=== PATIENT | female | born 1935 | race Asian ===

== ENCOUNTER 2020-12-25 17:41 | Emergency (ER) | payer MEDICARE, OTHER ==
--- NOTE | 2020-12-25 18:49 | XRAY Report ---
PROCEDURE: Ankle 3 View BILAT INDICATIONS: ankle swelling, pain TECHNIQUE: 3 views of each ankle were acquired. COMPARISON: None. FINDINGS: Bones: No definite fractures or dislocations. Ankle mortise is normally aligned. No suspicious bon y lesions. Visualized osseous structures appear osteopenic. Soft tissues: There is periarticular soft tissue swelling bilaterally. There is a suspected small ri ght tibiotalar joint effusion. Achilles tendon appears intact. IMPRESSION: 1. No definite fracture or dislocation. 2. Osteopenia. 3. Bilateral particular soft tissue swelling and suspected small right tibiotalar joint effusion. Reviewed by: Bennett Sheridan MD on 12/25/2020 6:48 PM PDT Approved by: Bennett Sheridan MD on 12/25/2020 6:48 PM PDT Station ID: [id number]
--- NOTE | 2020-12-25 19:23 | ED Physician Documentation ---
History of Present Illness - Stated complaint Stated Complaint: ANKLE PX/SWELLING - Chief complaint Chief Complaint: Ext Problem - Additonal information Additional information: 85-year-old female presents the emergency department for evaluation of pain around the radiation sites on her lower legs. She underwent radiation therapy on December 20 for skin cancer of her lower legs. She was advised to do daily salt water soaks and use a Q-tip to remove the eschar from the wound. However she feels that this is too painful to tolerate. She has some expected redness around the wounds but no fevers. No induration. She is scheduled to follow-up with her debeaker and has also been referred to [place] wound therapy. 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 Derm: Skin cancer surgery - Present Medications Home Medications: Ambulatory Orders Medication Instructions Recorded Confirmed Albuterol Sulf [Ventolin Hfa 08/15/18 Inhaler] Cholecalciferol (Vitamin D3) 08/15/18 [Vitamin D3] Donepezil [Aricept] 08/15/18 Ferrous Gluconate [Iron] 08/15/18 Fluticasone/Salmeterol [Advair 08/15/18 250-50 Diskus] Furosemide 08/15/18 Glipizide 08/15/18 Loratadine 08/15/18 Omeprazole 08/15/18 PARoxetine [Paxil] 08/15/18 Potassium Chloride 08/15/18 Simvastatin 08/15/18 Sulfamethoxazole/Trimethoprim 1 each PO BID #14 tablet 08/15/18 [Sulfamethoxazole-Tmp Ds Tablet] Tiotropium [place] [Spiriva] 08/15/18 08/15/18 amLODIPine [Norvasc] 08/15/18 metFORMIN [Glucophage] 08/15/18 HYDROcod/ACETAM 5/325 [[place] 5/325] 1 - 2 tablet PO DAILY PRN #10 12/25/20 tablet Ibuprofen [Motrin] 600 mg PO Q6H PRN #30 tab 12/25/20 - Allergies Allergies/Adverse Reactions: Allergies Allergy/AdvReac Type Severity Reaction Status Date / Time No Known Drug Allergies Allergy Verified 12/25/20 17:48 - Social History Does the pt smoke?: No Smoking Status: Never smoker Does the pt drink ETOH?: Yes Does the pt have substance abuse?: No - Immunizations Immunizations are current?: Yes - POLST Patient has POLST: No PD ED PE EXPANDED - General General: Alert, No acute distress - Extremities Extremities: Other (1 cm circumferential ulcerations bilaterally posterior lower legs. Mild amount of surrounding erythema without induration. The ulcerations do have a very shallow yellow eschar.) Results - Vitals Vitals: Vital Signs - 24 hr 12/25/20 12/25/20 17:48 18:07 Temperature 36.6 C Heart Rate 88 63 Respiratory 18 16 Rate Blood Pressure 190/70 H 152/71 H O2 Saturation 97 97 Oxygen O2 Source Room air PD MEDICAL DECISION MAKING - ED course Complexity details: reviewed results, re-evaluated patient, d/w patient ED course: 85-year-old female presents emergency department with pain on bilateral lower extremities at the site where she recently had radiation therapy for skin cancer. There is a mild amount of erythema there suggestive of radiation dermatitis however this is not suggestive of an acute cellulitis. In order to help with her dressing changes I have prescribed ibuprofen to be taken 1 hour before the dressing change. If she is still unable to tolerate her dressing changes then I have prescribed hydrocodone to be taken once daily 1 hour before the dressing changes. Patient will continue to follow-up with dermatology and [facility] as already scheduled. Emergent return precautions were discussed. Departure - Departure Disposition: 01 Home, Self Care Clinical Impression: Radiation dermatitis Condition: Stable Record reviewed to determine appropriate education?: Yes Prescriptions: Ibuprofen [Motrin] 600 mg PO Q6H PRN #30 tab PRN Reason: Pain HYDROcod/ACETAM 5/325 [[place] 5/325] 1 - 2 tablet PO DAILY PRN #10 tablet PRN Reason: Pain Comments: Having radiationDonna the pain that you have on your lower legs. The mild redness that you have is called radiation dermatitis. This is expected following radiation therapy. You do not have a bacterial skin infection. To help with your dressing changes and removing the yellow eschar I do recommend that you take the Motrin 1 hour before you do the dressing change. If you are still unable to tolerate the dressing changes then please take the hydrocodone 1 hour before the dressing change. Please be careful using the hydrocodone. It can cause constipation as well as make you prone to falls. It is important that you continue to use a Q-tip to remove the eschar from your wound. If you have increased redness, fevers worsening pain despite this treatment regimen please return to the ER for a second look. Continue to follow-up with your debeaker and radiation therapist as prescribed.
[2020-12-25 19:30] VITALS: BP 168/68
== END 2020-12-25 19:29 | disposition home or self-care (01) ==
LOC: ED 17:41
DX: L59.8 Other specified disorders of the skin and subcutaneous tissue related to radiation (principal); I10 Essential (primary) hypertension; E11.9 Type 2 diabetes mellitus without complications; Z79.84 Long term (current) use of oral hypoglycemic drugs
CPT/HCPCS: 99283

== ENCOUNTER 2022-06-21 03:05 | Outpatient (CLI) | payer MEDICARE | END 2022-06-21 03:06 | disposition critical access hospital (66) | LOC: EMS 03:05 | DX: S79.912A Unspecified injury of left hip, initial encounter (principal); S69.92XA Unspecified injury of left wrist, hand and finger(s), initial encounter; S01.112A Laceration without foreign body of left eyelid and periocular area, initial encounter; W01.0XXA Fall on same level from slipping, tripping and stumbling without subsequent striking against object, initial encounter; Y92.002 Bathroom of unspecified non-institutional (private) residence as the place of occurrence of the external cause | CPT/HCPCS: A0425; A0427 ==

== ENCOUNTER 2022-06-21 04:30 | Inpatient (IN) | payer MEDICARE ==
[2022-06-21] MEDS ORDERED: MORPHINE 2 MG/ML CARPUJECT IVP STA (04:44)
[2022-06-21] MEDS ORDERED: TETANUS/DIPHTHERIA/PERTUSSIS 0.5 ML SYRINGE IM ONE (04:46)
--- NOTE | 2022-06-21 04:48 | ED Physician Documentation ---
History of Present Illness - Stated complaint Stated Complaint: GLF - Chief complaint Chief Complaint: Ext Problem - History obtained from History obtained from: Patient - Additonal information Additional information: 86yF p/w L forehead laceration, L wrist deformity, and L hip deformity s/p fall from standing up from the bathroom this past evening. patient states she lost her balance and fell to the floor, possibly hitting her head on the door frame on the way down. endorses significant sudden onset constant pain to L hip and forearm/wrist. denies other injury. Review of Systems Ten Systems: 10 systems reviewed and negative Musculoskeletal: reports: Extremity pain, Joint pain, Extremity swelling. denies: Neck pain, Back pain Neurologic: reports: Head injury. denies: Syncope, LOC PD PAST MEDICAL HISTORY - Past Medical History Past Medical History: Yes Cardiovascular: Hypertension, High cholesterol Respiratory: Asthma Neuro: None Endocrine/Autoimmune: Type 2 diabetes GI: None TECHNICAL SOLUTIONS CONSULTANT: None : None HEENT: None Psych: None Musculoskeletal: None Derm: None - Past Surgical History Past Surgical History: Yes /TECHNICAL SOLUTIONS CONSULTANT: Hysterectomy Derm: Skin cancer surgery - Present Medications Home Medications: Ambulatory Orders Medication Instructions Recorded Confirmed Albuterol Sulf [Ventolin Hfa 08/15/18 Inhaler] Cholecalciferol (Vitamin D3) 08/15/18 [Vitamin D3] Donepezil [Aricept] 08/15/18 Ferrous Gluconate [Iron] 08/15/18 Fluticasone/Salmeterol [Advair 08/15/18 250-50 Diskus] Furosemide 08/15/18 Loratadine 08/15/18 Omeprazole 08/15/18 PARoxetine [Paxil] 08/15/18 Potassium Chloride 08/15/18 Simvastatin 08/15/18 Sulfamethoxazole/Trimethoprim 1 each PO BID #14 tablet 08/15/18 [Sulfamethoxazole-Tmp Ds Tablet] Tiotropium [place] [Spiriva 08/15/18 08/15/18 [place]haler] amLODIPine [Norvasc] 08/15/18 glipiZIDE [Glipizide] 08/15/18 metFORMIN [Glucophage] 08/15/18 HYDROcod/ACETAM 5/325 [[place] 5/325] 1 - 2 tablet PO DAILY PRN #10 12/25/20 tablet Ibuprofen [Motrin] 600 mg PO Q6H PRN #30 tab 12/25/20 - Allergies Allergies/Adverse Reactions: Allergies Allergy/AdvReac Type Severity Reaction Status Date / Time No Known Drug Allergies Allergy Verified 06/21/22 04:43 - Social History Does the pt smoke?: No Smoking Status: Never smoker Does the pt drink ETOH?: Yes Does the pt have substance abuse?: No - Immunizations Immunizations are current?: Yes - POLST Patient has POLST: No PD ED PE NORMAL - Vitals Vital signs reviewed: Yes - General General: No acute distress, Well developed/nourished, Other (AOX2 (mistakenly said year was 2019)) - HEENT HEENT: Atraumatic (atraumatic with exception of L forehead avulsion), PERRL, EOMI - Neck Neck: No bony TTP - Cardiac Cardiac: RRR - Respiratory Respiratory: No respiratory distress, Clear bilaterally - Abdomen Abdomen: Non tender, Non distended - Back Back: No spinal TTP - Derm Derm: Normal color, Warm and dry - Extremities Extremities: Other (L leg shortened, internally rotated. 2+ pulses all extremities. normal movement and cap refill. L distal forearm deformity) - Neuro Neuro: banquet prep cook 2-12 intact, No motor deficit, No sensory deficit, Normal speech Eye Opening: Spontaneous Motor: Obeys Commands Verbal: Oriented GCS Score: 15 - Psych Psych: Normal mood, Normal affect Results - Vitals Vitals: Vital Signs - 24 hr 06/21/22 06/21/22 06/21/22 04:40 04:44 05:01 Temperature 36.7 C Heart Rate 73 72 72 Respiratory 18 18 20 Rate Blood Pressure 167/76 H O2 Saturation 92 97 If not protocol 2 : Oxygen Flow, liters/minute 06/21/22 06/21/22 06/21/22 05:16 05:52 06:59 Temperature Heart Rate 72 73 83 Respiratory 18 20 Rate Blood Pressure 170/79 H 179/81 H O2 Saturation 97 96 96 If not protocol 2 2 2 : Oxygen Flow, liters/minute Oxygen O2 Source Nasal cannula Oxygen Flow Rate 2 - Labs Labs: Laboratory Tests 06/21/22 06/21/22 06/21/22 05:40 05:40 06:50 WBC 8.7 RBC 4.18 L Hgb 13.3 Hct 41.3 MCV 98.8 MCH 31.8 H MCHC 32.2 RDW 13.0 Plt Count 175 MPV 9.8 Neut # (Auto) 7.1 H Lymph # (Auto) 1.0 L [place] # (Auto) 0.5 Eos # (Auto) 0.1 Baso # (Auto) 0.0 Absolute Nucleated RBC 0.00 Nucleated RBC % 0.0 Sodium 140 Potassium 4.1 Chloride 104 Carbon Dioxide 28 Anion Gap 8.0 BUN 9 Creatinine 0.6 Estimated GFR (MDRD) 94 Glucose 409 H Calcium 9.3 Total Bilirubin 1.2 H AST 19 ALT 16 Alkaline Phosphatase 106 Total Protein 6.6 L Albumin 3.7 Globulin 2.9 Albumin/Globulin Ratio 1.3 Lipase 40 SARS-CoV-2 (PCR) NOT DETECTED PD MEDICAL DECISION MAKING - ED course ED course: 86yF presents s/p mechanical fall with multiple injuries including hip and forearm fx. will obtain cts, reevaluate. d/w Dr. Vazquez re: distal radius fracture and intertroch fracture. volar splint placed. Dr. Vazquez able to operate under decorator consultant role. requesting hospitalist admission. unable to reach night telehealth or daytime hospitalist therefore patient was signed out to Dr. Banks awaiting admission. Departure - Departure Disposition: 66 [facility] DC/Xfer Clinical Impression: Hip fracture, left, Wrist fracture, left
[2022-06-21 06:06] LABS: BASOPHILS % (AUTO) 0.3 %; EOSINOPHILS # (AUTO) 0.1 10^3/uL (0.0-0.7); EOSINOPHILS % (AUTO) 0.8 %; HCT - HEMATOCRIT 41.3 % (37.0-47.0); HGB - HEMOGLOBIN 13.3 g/dL (12.0-16.0); LYMPHOCYTES % (AUTO) 11.8 %; MEAN CORPUSCULAR HEMOGLOBIN 31.8 pg (27.0-31.0); MEAN CORPUSCULAR HGB CONC 32.2 g/dL (32.0-36.0); MEAN CORPUSCULAR VOLUME 98.8 fL (81.0-99.0); MEAN PLATELET VOLUME 9.8 fL (7.9-10.8); MONOCYTES # (AUTO) 0.5 10^3/uL (0.0-1.0); MONOCYTES % (AUTO) 5.1 %; NEUTROPHILS # (AUTO) 7.1 10^3/uL (1.5-6.6); NEUTROPHILS % (AUTO) 81.3 %; PLT - PLATELET COUNT 175 10^3/uL (130-450); RED BLOOD COUNT 4.18 10^6/uL (4.20-5.40); WHITE BLOOD COUNT 8.7 x10^3/uL (4.8-10.8)
[2022-06-21 06:18] LABS: ALBUMIN 3.7 g/dL (3.2-5.5); ALBUMIN/GLOBULIN RATIO 1.3 (1.0-2.2); BILIRUBIN,TOTAL 1.2 mg/dL (0.2-1.0); CALCIUM 9.3 mg/dL (8.5-10.3); CREATININE 0.6 mg/dL (0.4-1.0); POTASSIUM 4.1 mmol/L (3.5-5.0); TOTAL PROTEIN 6.6 g/dL (6.7-8.2)
[2022-06-21] MEDS ORDERED: SODIUM CHLORIDE 0.9% 500 ML IV STA (07:52)
--- NOTE | 2022-06-21 07:55 | ED Physician Documentation ---
ED Addendum - Addendum Addendum: 06/21/22 07:52 86-year-old Terri Naranjo with a history of COPD hypertension and diabetes has had a fall in her bathroom breaking her left wrist and hip. At shift change her care is turned over to me awaiting the hospitalist evaluation. The patient has a history of diabetes blood sugar of over 409 and she has not been recently checking her blood sugars. Her indicates that she has been up to the bathroom more than usual. I evaluated the patient's inferior vena cava with a bedside ultrasound and found her inferior vena cava to be 1.14 cm consistent with just over a liter of deficiency. She is administered a 500 mL bolus of saline. In addition her urine is checked with symptoms of frequency. 06/21/22 08:06 hospitalist is contacted at 0805 with no beds this morning we will await a discharge for transfer to the floor. 06/21/22 09:00 Electrocardiogram done 08 43 shows a normal sinus rhythm with a rate of 82 there are multiple premature complexes. There is incomplete right bundle andrea block and nonspecific T abnormalities in the lateral leads. There is no prior electrocardiogram for comparison. 06/21/22 09:01
--- NOTE | 2022-06-21 08:10 | CT Report ---
PROCEDURE: HEAD WO INDICATIONS: head injury s/p fall TECHNIQUE: Noncontrast 4.5 mm thick angled axial sections acquired from the foramen magnum to the vertex. For r adiation dose reduction, the following was used: automated exposure control, adjustment of mA and/or kV according to patient size. COMPARISON: None. FINDINGS: Image quality: Excellent. CSF spaces: There is a ventricular shunt entering through the right parietal area with the tip proje cting to the left frontal region. Basal cisterns are patent. No extra-axial fluid collections. Vent ricles are dilated but symmetrical in size and shape. 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 No midline shift. No intracranial masses or hemorrh age. There is moderate cerebral volume loss. There are periventricular white matter chronic small ves sheree ischemic changes. Skull and face: Right frontal craniotomy. Calvarium and visualized facial bones are intact, without suspicious lesions. Sinuses: Visualized sinuses and mastoids are clear. IMPRESSION: 1. No acute intracranial abnormalities. 2. There is a ventricular shunt. The tip of the catheter projecting to the left frontal area. Recomme nd verification with neurosurgery for appropriate position of the shunt catheter. Comparison to prior examinations, when available, would be helpful. 3. 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 No significant discrepancy with the preliminary interpretation. Reviewed by: Jimbo Ross MD on 06/21/2022 8:09 AM PDT Approved by: Jimbo Ross MD on 06/21/2022 8:09 AM PDT Station ID: [id number]
--- NOTE | 2022-06-21 08:17 | XRAY Report ---
PROCEDURE: Chest 1 View X-Ray INDICATIONS: fall from standing TECHNIQUE: One view of the chest was acquired. COMPARISON: None FINDINGS: Surgical changes and devices: None. Lungs and pleura: No pleural effusions or pneumothorax. Lungs are clear. Mediastinum: Mediastinal contours appear normal. Heart size is mildly enlarged. Bones and chest wall: No suspicious bony lesions. Overlying soft tissues appear unremarkable. IMPRESSION: No acute cardiopulmonary pathology. No discrepancies from preliminary reading. Reviewed by: Juan Carlos Martinez MD on 06/21/2022 8:16 AM PDT Approved by: Juan Carlos Martinez MD on 06/21/2022 8:16 AM PDT Station ID: [id number]
--- NOTE | 2022-06-21 08:18 | XRAY Report ---
PROCEDURE: Wrist 3 View LT INDICATIONS: forearm fracture TECHNIQUE: 3 views of the wrist were acquired. COMPARISON: None. FINDINGS: Bones: Or acute comminuted and impacted fracture involving distal radius is seen with fracture line e xtending to radiocarpal joint space and up to 1.4 cm overlapping of fracture site. Slight volar and d orsal displacement of fractured fragments are seen. There is diffuse osteopenia. Osteoarthritic delcid es are noted throughout wrist joints. No other fracture or dislocation. No suspicious bony lesions. Scaphoid view: Scaphoid is grossly intact. Soft tissues: No suspicious soft tissue calcifications. IMPRESSION: Acute comminuted, impacted and slightly displaced intra-articular fracture involving distal radius as above. No discrepancies. Reviewed by: Juan Carlos Martinez MD on 06/21/2022 8:17 AM PDT Approved by: Juan Carlos Martinez MD on 06/21/2022 8:17 AM PDT Station ID: [id number]
--- NOTE | 2022-06-21 08:21 | XRAY Report ---
PROCEDURE: Forearm LT INDICATIONS: forearm fracture TECHNIQUE: 2 views of the forearm were acquired. COMPARISON: Wrist radiograph from the same day. FINDINGS: Bones: Or acute comminuted impacted and slightly displaced distal radial intra-articular fracture is again seen. No fracture or dislocation is seen in proximal to mid radius. No acute ulnar fracture. Di ffuse osteopenia is again seen. Osteoarthritic changes are noted in wrist joints and elbow joints. Campbell spicious bony lesions. Soft tissues: Soft tissue swelling surrounding distal radial fracture site is seen. No suspicious so ft tissue calcifications or masses. IMPRESSION: Acute comminuted, impacted and slightly displaced intra-articular fracture of distal radius. No other fracture or dislocation is seen. Reviewed by: Juan Carlos Martinez MD on 06/21/2022 8:20 AM PDT Approved by: Juan Carlos Martinez MD on 06/21/2022 8:20 AM PDT Station ID: [id number]
--- NOTE | 2022-06-21 08:23 | XRAY Report ---
PROCEDURE: Hip w/Pelvis 2-3V LT INDICATIONS: hip fracture TECHNIQUE: AP pelvis with lateral view(s) of the left hip(s). COMPARISON: None. FINDINGS: Bones: Acute intertrochanteric fracture of left proximal femur is seen with slight impaction at fract ure site. No other fracture or dislocation. No evidence of avascular necrosis of femoral head. Bilate ral hip joint osteoarthritic changes are seen. Pelvic ring appears intact. No suspicious bony lesion s. Soft tissues: The visualized bowel gas pattern is normal. No suspicious soft tissue calcifications. IMPRESSION: Acute slightly impacted fracture involving intertrochanteric region of left proximal femu r. No other fracture or dislocation is seen. Reviewed by: Juan Carlos Martinez MD on 06/21/2022 8:22 AM PDT Approved by: Juan Carlos Martinez MD on 06/21/2022 8:22 AM PDT Station ID: [id number]
--- NOTE | 2022-06-21 08:39 | CT Report ---
PROCEDURE: PELVIS WO INDICATIONS: L hip fracture TECHNIQUE: Noncontrast 3 mm axial sections acquired through the bony pelvis, with coronal and sagittal reformatt ing. For radiation dose reduction, the following was used: automated exposure control, adjustment of mA and/or kV according to patient size. COMPARISON: Left hip radiograph from the same day. FINDINGS: Image quality: Excellent. Bones: There is a slightly comminuted oblique fracture through intertrochanteric region of left proxi mal femur with fracture line extending to both greater and lesser trochanters. There is slight impact ion at intertrochanteric fracture site. No significant displacement of the fractured fragments are se en. Moderate bilateral hip joint osteoarthritic changes are seen. No evidence of avascular necrosis of fe moral head. No other fracture or dislocation. Moderate osteoarthritic changes also noted in bilateral sacroiliac joints and symphysis pubis. No suspicious bony lesion. Soft tissues: Significant soft tissue swelling surrounding intertrochanteric fracture site is seen. There is no significant joint effusion. No abnormal soft tissue calcifications or intra-articular loo se bodies. No large intramuscular hematoma soft tissue hematoma is seen. No pelvic free fluid of free air. Bladder wall thickness is normal. No abnormal bowel wall thickening or mesenteric fat stranding . No pelvic adenopathy by size criteria. IMPRESSION: 1. Acute slightly comminuted and minimally impacted fracture through intertrochanter region of left p roximal femur as described above. 2. Osteoarthritic changes throughout the bony pelvis. No additional fracture or dislocation. No evide nce of avascular necrosis of femoral head. 3. Mild soft tissue swelling and edema surrounding left intertrochanteric fracture site. No abnormal soft tissue calcifications. No significant joint effusion. No pelvic free fluid of free air. Reviewed by: Juan Carlos Martinez MD on 06/21/2022 8:38 AM PDT Approved by: Juan Carlos Martinez MD on 06/21/2022 8:38 AM PDT Station ID: [id number]
[2022-06-21 09:11] LABS: BILIRUBIN,URINE NEGATIVE (NEGATIVE); GLUCOSE, URINE (UA) >=1000 mg/dL (NEGATIVE); KETONES,URINE (UA) TRACE mg/dL (NEGATIVE); LEUKOCYTE ESTERASE, URINE SMALL (NEGATIVE); NITRITE,URINE POSITIVE (NEGATIVE); OCCULT BLOOD,URINE TRACE-INTA (NEGATIVE); PROTEIN,URINE NEGATIVE (NEGATIVE); UROBILINOGEN,URINE 4 E.U./dL (NORMAL)
[2022-06-21 09:15] LABS: CLARITY,URINE CLOUDY (CLEAR)
[2022-06-21 09:25] LABS: BACTERIA,URINE Many /HPF (None Seen); RBC,URINE 0-5 /HPF (0-5); SQUAMOUS EPITHELIAL CELL,UR MANY Squamous (<= Few); WBC,URINE >25 /HPF (0-5); YEAST,URINE PRESENT
--- NOTE | 2022-06-21 09:44 | CT Report ---
PROCEDURE: CERVICAL SPINE WO INDICATIONS: s/p fall TECHNIQUE: Noncontrast 3 mm thick sections acquired from the skull base to the T4 level. Sagittal and coronal r eformats were then constructed. For radiation dose reduction, the following was used: automated exp osure control, adjustment of mA and/or kV according to patient size. COMPARISON: None. FINDINGS: Image quality: Excellent. Bones: No fractures or dislocations. There is degenerative disc disease, moderate at the 5-C6 and C6 -C7. Bilateral facet arthropathy, most pronounced at C3-C4 and C4-C5. Moderate atlantoaxial joint deg eneration. Osteopenia. Visualized superior ribs are intact. Soft tissues: Prevertebral soft tissues are normal in thickness. No paravertebral hematomas. No ap ical pneumothoraces. IMPRESSION: 1. No cervical spine fractures. 2. Degenerative changes as described. 3. Osteopenia. No significant discrepancy with the preliminary interpretation. Reviewed by: Jimbo Ross MD on 06/21/2022 9:43 AM PDT Approved by: Jimbo Ross MD on 06/21/2022 9:43 AM PDT Station ID: [id number]
[2022-06-21] MEDS ORDERED: ONDANSETRON 4 MG/2 ML VIAL IVP PRN ×2 (10:48→14:28)
[2022-06-21] MEDS ORDERED: MORPHINE 2 MG/ML CARPUJECT IVP PRN ×2 (10:48→14:28)
[2022-06-21] MEDS ORDERED: D5NS W/20 MEQ KCL 1,000 ML IV SCH ×2 (11:00→18:52)
--- NOTE | 2022-06-21 11:10 | HISTORY & PHYSICAL EXAMINATION ---
Chief Complaint - Chief Complaint Chief Complaint: Fall at home, hip pain and wrist pain History of Present Illness - Admitted From Admitted From:: ED - History Obtained From History obtained from: ED provider and the patient - History of Present Illness HPI Comment/Other: This is an 86-year-old female who has a diagnosis of dementia and takes Aricept, she also has a history of diabetes mellitus and obesity. The patient lives at home with her . She went to the bathroom overnight and after standing up from the toilet, she does not remember how or why, but she fell to the floor. She does not think she had syncope. She cannot remember if she was dizzy. She hit the left side of her head and her left body. She was brought into the emergency room and work-up shows that she has a left wrist fracture and left hip fracture and a skin avulsion skin tear at the left jain. Other imaging from head down to pelvis and legs showed no other areas of trauma. Orthopedics is planning to take her to the OR for hip surgery and for management of the left wrist fracture. The Hospitalist team has been contacted for admitting this patient. Patient states that her makes a diabetic diet for them both. Patient cannot remember what medicine she takes for diabetes and states that she checks fingersticks of her glucose every morning and every night but also cannot remember any glu results whatsoever. The told the ED provider that the patient has been "going to the bathroom more often therefore she might have a UTI". I asked the patient about this and she denies any dysuria but claims there is some hematuria recently. I tried reaching the to get more details and there is no answer, I left voice message. History - Past Medical History Cardiovascular: reports: Hypertension, High cholesterol Respiratory: reports: Asthma Neuro: reports: Dementia Endocrine/Autoimmune: reports: Type 2 diabetes GI: reports: None MEDICAL CLINIC MANAGER: reports: None : reports: None HEENT: reports: None Psych: reports: None Musculoskeletal: reports: None Derm: reports: None MRSA Hx?: No - Past Surgical History /MEDICAL CLINIC MANAGER: reports: Hysterectomy Derm: reports: Skin cancer surgery - Family & Social History Family History Comment/Other: The patient knew no details at all about family history, and could not be reached. Living arrangement: At home Living Situation: With spouse/s.o. Social History Notes: She is a non-smoker. - POLST Patient has POLST: No Meds/Allgy - Home Medications Home Medications: Ambulatory Orders Medication Instructions Recorded Confirmed Albuterol Sulf [Ventolin Hfa 08/15/18 Inhaler] Cholecalciferol (Vitamin D3) 08/15/18 [Vitamin D3] Donepezil [Aricept] 08/15/18 Ferrous Gluconate [Iron] 08/15/18 Fluticasone/Salmeterol [Advair 08/15/18 250-50 Diskus] Furosemide 08/15/18 Loratadine 08/15/18 Omeprazole 08/15/18 PARoxetine [Paxil] 08/15/18 Potassium Chloride 08/15/18 Simvastatin 08/15/18 Sulfamethoxazole/Trimethoprim 1 each PO BID #14 tablet 08/15/18 [Sulfamethoxazole-Tmp Ds Tablet] Tiotropium [place] [Spiriva 08/15/18 08/15/18 Handihaler] amLODIPine [Norvasc] 08/15/18 glipiZIDE [Glipizide] 08/15/18 metFORMIN [Glucophage] 08/15/18 HYDROcod/ACETAM 5/325 [[place] 5/325] 1 - 2 tablet PO DAILY PRN #10 12/25/20 tablet Ibuprofen [Motrin] 600 mg PO Q6H PRN #30 tab 12/25/20 - Allergies Allergies/Adverse Reactions: Allergies Allergy/AdvReac Type Severity Reaction Status Date / Time No Known Drug Allergies Allergy Verified 06/21/22 04:43 Review of Systems - Genitourinary Genitourinary: reports: Hematuria - Neurological Neurological: reports: Memory problems - All Other Systems All Other Systems: reports: Reviewed and negative (This was limited information because of the patient's dementia and the could not be reached.) Exam - Vital Signs Vital Signs: Vital Signs x48h Temp Pulse Resp BP Pulse Ox O2 Flow Rate 06/21/22 10:09 80 21 185/125 H 96 06/21/22 06:59 83 20 96 2 06/21/22 05:52 73 18 179/81 H 96 2 06/21/22 05:16 72 170/79 H 97 2 06/21/22 05:01 72 20 97 2 06/21/22 04:44 72 18 92 06/21/22 04:40 36.7 C 73 18 167/76 H - Physical Exam General Appearance: positive: No acute distress, Alert, Other (Obese, elderly WF) Eyes Bilateral: positive: Normal inspection, EOMI ENT: positive: No signs of dehydration, Other (L jain has skin tear) Neck: positive: Nml inspection, Other (Cannot eval JVP due to obese neck) Respiratory: positive: No respiratory distress, Breath sounds nml Cardiovascular: positive: Regular rate & rhythm, No murmur Abdomen: positive: Non-tender, Nml bowel sounds, Other (Obese with a pannus) Skin: positive: Warm, Dry Extremities: positive: No pedal edema, Other (L forarm in a splint) Neurologic/Psychiatric: positive: Oriented x3, Motor nml (Moving spontaneously) Conclusion/Plan - Problem List (1) Hip fracture, left Conclusion/Plan: Will order pain meds. Orthopedic consults. The orthopedist is planning to take her to the OR later this afternoon therefore we will keep her n.p.o. Following surgery she will need PT and OT evaluation and rehab. Qualifiers: Encounter type: initial encounter Fracture type: closed Qualified Code(s): S72.002A - Fracture of unspecified part of neck of left femur, initial encounter for closed fracture (2) Pre-operative clearance Conclusion/Plan: This patient denies any cardiac history. Her EKG is unremarkable. Her cardiac risk factors are DM, obesity, advanced age and hypertension. Her Revised Cardiac Risk Assessment calculated out to a Class 1 risk for perioperative cardiac events with a risk percentage of 0.4%. This was communicated with the orthopedic PA, Caprice Garcia. (3) Wrist fracture, left Conclusion/Plan: PAin meds Management as per Orthopedics Qualifiers: Encounter type: initial encounter Fracture type: closed Qualified Code(s): S62.102A - Fracture of unspecified carpal bone, left wrist, initial encounter for closed fracture (4) Fall at home Conclusion/Plan: Etiology could be volume depletion or a potential infection given her symptoms (see below). After surgery, will obtain orthostatic vital sign checks. A repeat work-up of the urine is pending. She will have PT and OT evaluations done after the OR (5) DM type 2 (diabetes mellitus, type 2) Conclusion/Plan: She is currently n.p.o. awaiting surgery but following that she would be put on a diabetic diet, fingerstick checks and sliding scale insulin protocol as well as hypoglycemia protocol. (6) Hematuria Conclusion/Plan: The patient reports bloody urine. The ED provider got a history from the patient's of urinary frequency and urgency. Her initial UA had many squamous cells. We will repeat her UA and send for culture if indicated (7) Dementia Conclusion/Plan: The patient has a poor memory which was evident during my time of speaking with her. Her medication list shows that she is on Aricept. Will continue with Aricept. Will try to reach the regarding information about her usual level of functioning - Lab Results Fish Bones: 06/21/22 05:40 06/21/22 05:40 - Diagnostic Imaging Results Diagnostic Imaging Results: positive: Final report reviewed - EKG Results EKG Interpreted Independently: Yes EKG Comparison: Old EKG unavailable EKG Findings: NSR, PAC, PVC, LAFB, incomplete RBBB. - Other Other Results/Comments: Attestation: The patient is expected to be discharged or transferred to another facility within 96 hours: Yes.
--- NOTE | 2022-06-21 11:52 | HISTORY & PHYSICAL EXAMINATION ---
HPI - History Obtained From History obtained from: Patient, Family Exam limitations: Clinical condition - History of Present Illness HPI Comment/Other: This is a 86-year-old woman who was brought to the emergency room early this morning following a fall at home. She was getting up to go to the bathroom. She was not using her walker. She does know why she fell but did fall onto her left side. She was unable to walk and her can help her back up on her feet. She has brought to the emergency room and evaluated. She denies chest pain, shortness of breath, dizziness, syncope or loss of consciousness associated with the fall. Her complaint is left wrist and left upper thigh pain. She normally has to use a walker to ambulate. She denies that she has difficulty walking but her says she hobbles and needs a walker. Her states that she does not walk well. She does have a history in the remote past of lung and breast cancer, excision of a brain tumor 20 years or more ago, [id number] diabetes mellitus and obesity. She denies cigarette smoking, admits to occasional use of alcohol. She denies heart attack, stroke, pulmonary embolus or problems with anesthesia in the past. She is ambulatory, walks indoors and outdoors but with a walker is much as she can. PMH/PSH - Past Medical History Cardiovascular: positive: Hypertension, High cholesterol Respiratory: positive: Asthma Neuro: positive: Dementia Endocrine/Autoimmune: positive: Type 2 diabetes GI: positive: None MOTORIZED SQUAD LIEUTENANT: positive: None : positive: None HEENT: positive: None Psych: positive: None Musculoskeletal: positive: None Derm: positive: None MRSA Hx?: No - Past Surgical History /MOTORIZED SQUAD LIEUTENANT: positive: Hysterectomy Derm: positive: Skin cancer surgery Social & Family Hx - Social History Does the pt smoke?: No Smoking Status: Never smoker Does the pt drink ETOH?: Yes Does the pt have substance abuse?: No - POLST Patient has POLST: No Meds/Allgy - Home Medications Home Medications: Ambulatory Orders Medication Instructions Recorded Confirmed Albuterol Sulf [Ventolin Hfa 08/15/18 Inhaler] Cholecalciferol (Vitamin D3) 08/15/18 [Vitamin D3] Donepezil [Aricept] 08/15/18 Ferrous Gluconate [Iron] 08/15/18 Fluticasone/Salmeterol [Advair 08/15/18 250-50 Diskus] Furosemide 08/15/18 Loratadine 08/15/18 Omeprazole 08/15/18 PARoxetine [Paxil] 08/15/18 Potassium Chloride 08/15/18 Simvastatin 08/15/18 Sulfamethoxazole/Trimethoprim 1 each PO BID #14 tablet 08/15/18 [Sulfamethoxazole-Tmp Ds Tablet] Tiotropium [place] [Spiriva 08/15/18 08/15/18 Handihaler] amLODIPine [Norvasc] 08/15/18 glipiZIDE [Glipizide] 08/15/18 metFORMIN [Glucophage] 08/15/18 HYDROcod/ACETAM 5/325 [[place] 5/325] 1 - 2 tablet PO DAILY PRN #10 12/25/20 tablet Ibuprofen [Motrin] 600 mg PO Q6H PRN #30 tab 12/25/20 - Allergies Allergies/Adverse Reactions: Allergies Allergy/AdvReac Type Severity Reaction Status Date / Time No Known Drug Allergies Allergy Verified 06/21/22 04:43 Exam - Vital Signs Vital Signs: Vital Signs x48h Temp Pulse Resp BP Pulse Ox O2 Flow Rate 06/21/22 10:09 80 21 185/125 H 96 06/21/22 06:59 83 20 96 2 06/21/22 05:52 73 18 179/81 H 96 2 06/21/22 05:16 72 170/79 H 97 2 06/21/22 05:01 72 20 97 2 06/21/22 04:44 72 18 92 06/21/22 04:40 36.7 C 73 18 167/76 H - Physical Exam General Appearance: positive: Mild distress Cardiovascular: positive: Regular rate & rhythm Peripheral Pulses: positive: 1+ Skin: positive: Color nml, Dry Neurologic/Psychiatric: positive: Oriented x3, Motor nml, Sensation nml Comments/Other: Left wrist shows mild swelling and tenderness, mild deformity. Neurovascular intact left hand. She does have arthritic changes to left hand fingers. Left hip is shortened and externally rotated, marked pain with any attempted passive motion left hip. Neurovascular intact left leg. Left knee nontender Results - Lab Results Fish Bones: 06/21/22 05:40 06/21/22 05:40 Other Lab Results: Lab Results x24hrs 06/21/22 06/21/22 06/21/22 Range/Units 08:50 06:50 05:40 WBC (4.8-10.8) x10^3/uL RBC (4.20-5.40) 10^6/uL Hgb (12.0-16.0) g/dL Hct (37.0-47.0) % MCV (81.0-99.0) fL MCH (27.0-31.0) pg MCHC (32.0-36.0) g/dL RDW (12.0-15.0) % Plt Count (130-450) 10^3/uL MPV (7.9-10.8) fL Neut # (Auto) (1.5-6.6) 10^3/uL Lymph # (Auto) (1.5-3.5) 10^3/uL [place] # (Auto) (0.0-1.0) 10^3/uL Eos # (Auto) (0.0-0.7) 10^3/uL Baso # (Auto) (0.0-0.1) 10^3/uL Absolute Nucleated RBC x10^3/uL Nucleated RBC % /100WBC Sodium 140 (135-145) mmol/L Potassium 4.1 (3.5-5.0) mmol/L Chloride 104 (101-111) mmol/L Carbon Dioxide 28 (21-32) mmol/L Anion Gap 8.0 (6-13) BUN 9 (6-20) mg/dL Creatinine 0.6 (0.4-1.0) mg/dL Estimated GFR (MDRD) 94 (>89) Glucose 409 H (70-100) mg/dL Calcium 9.3 (8.5-10.3) mg/dL Total Bilirubin 1.2 H (0.2-1.0) mg/dL AST 19 (10-42) IU/L ALT 16 (10-60) IU/L Alkaline Phosphatase 106 (42-121) IU/L Total Protein 6.6 L (6.7-8.2) g/dL Albumin 3.7 (3.2-5.5) g/dL Globulin 2.9 (2.1-4.2) g/dL Albumin/Globulin Ratio 1.3 (1.0-2.2) Lipase 40 (22-51) U/L Urine Color YELLOW Urine Clarity CLOUDY (CLEAR) Urine pH 6.0 (5.0-7.5) PH Ur Specific [place] 1.015 (1.002-1.030) Urine Protein NEGATIVE (NEGATIVE) mg/dL Urine Glucose (UA) >=1000 H (NEGATIVE) mg/dL Urine Ketones TRACE (NEGATIVE) mg/dL Urine Occult Blood TRACE-INTA (NEGATIVE) Urine Nitrite POSITIVE H (NEGATIVE) Urine Bilirubin NEGATIVE (NEGATIVE) Urine Urobilinogen 4 H (NORMAL) E.U./dL Ur Leukocyte Esterase SMALL H (NEGATIVE) Urine RBC 0-5 (0-5) /HPF Urine WBC >25 H (0-5) /HPF Ur Squamous Epith Cells MANY Squamous H (<= Few) Urine Bacteria Many H (None Seen) /HPF Urine Yeast PRESENT Ur Microscopic Review INDICATED Urine Culture Comments NOT INDICATED SARS-CoV-2 (PCR) NOT DETECTED 06/21/22 Range/Units 05:40 WBC 8.7 (4.8-10.8) x10^3/uL RBC 4.18 L (4.20-5.40) 10^6/uL Hgb 13.3 (12.0-16.0) g/dL Hct 41.3 (37.0-47.0) % MCV 98.8 (81.0-99.0) fL MCH 31.8 H (27.0-31.0) pg MCHC 32.2 (32.0-36.0) g/dL RDW 13.0 (12.0-15.0) % Plt Count 175 (130-450) 10^3/uL MPV 9.8 (7.9-10.8) fL Neut # (Auto) 7.1 H (1.5-6.6) 10^3/uL Lymph # (Auto) 1.0 L (1.5-3.5) 10^3/uL [place] # (Auto) 0.5 (0.0-1.0) 10^3/uL Eos # (Auto) 0.1 (0.0-0.7) 10^3/uL Baso # (Auto) 0.0 (0.0-0.1) 10^3/uL Absolute Nucleated RBC 0.00 x10^3/uL Nucleated RBC % 0.0 /100WBC Sodium (135-145) mmol/L Potassium (3.5-5.0) mmol/L Chloride (101-111) mmol/L Carbon Dioxide (21-32) mmol/L Anion Gap (6-13) BUN (6-20) mg/dL Creatinine (0.4-1.0) mg/dL Estimated GFR (MDRD) (>89) Glucose (70-100) mg/dL Calcium (8.5-10.3) mg/dL Total Bilirubin (0.2-1.0) mg/dL AST (10-42) IU/L ALT (10-60) IU/L Alkaline Phosphatase (42-121) IU/L Total Protein (6.7-8.2) g/dL Albumin (3.2-5.5) g/dL Globulin (2.1-4.2) g/dL Albumin/Globulin Ratio (1.0-2.2) Lipase (22-51) U/L Urine Color Urine Clarity (CLEAR) Urine pH (5.0-7.5) PH Ur Specific [place] (1.002-1.030) Urine Protein (NEGATIVE) mg/dL Urine Glucose (UA) (NEGATIVE) mg/dL Urine Ketones (NEGATIVE) mg/dL Urine Occult Blood (NEGATIVE) Urine Nitrite (NEGATIVE) Urine Bilirubin (NEGATIVE) Urine Urobilinogen (NORMAL) E.U./dL Ur Leukocyte Esterase (NEGATIVE) Urine RBC (0-5) /HPF Urine WBC (0-5) /HPF Ur Squamous Epith Cells (<= Few) Urine Bacteria (None Seen) /HPF Urine Yeast Ur Microscopic Review Urine Culture Comments SARS-CoV-2 (PCR) - Diagnostic Imaging Results Diagnostic Imaging Results: negative: Read independently (Displaced distal radius fracture left wrist, extra-articular) - Other Other Results/Comments: Displaced peritrochanteric fracture left hip Impression/Plan - Problem List Problem List: Displaced peritrochanteric fracture left hip Displaced fracture left distal radius Plan close reduction left distal radius and open reduction internal fixation left hip. She and her are both in agreement to the surgery and has signed informed consent. The risks, goals and likelihood of achieving goals, alternatives to surgery and their consequences, disability and rarely were discussed with her and her . She has been seen by our hospitalist who did not feel that there were any contraindications to proceeding with surgery.
[2022-06-21] MEDS ORDERED: INSULIN REGULAR HUMAN 300 UNIT/3 ML VIAL SUBQ SCH (12:00)
[2022-06-21] MEDS ORDERED: CEFAZOLIN 2G/50ML 0.9% NS 2 GM/50 ML BAG IV ONE (13:43)
[2022-06-21] MEDS ORDERED: HYDROmorphone 0.5 MG/0.5 ML SYRINGE IVP PRN (14:28)
[2022-06-21] MEDS ORDERED: NALOXONE 0.4 MG/ML VIAL IVP PRN (14:28)
[2022-06-21] MEDS ORDERED: fentaNYL 100 MCG/2 ML VIAL IVP PRN (14:28)
[2022-06-21] MEDS ORDERED: ATROPINE ABBOJECT 1 MG/10 ML SYRINGE IVP PRN (14:28)
[2022-06-21] MEDS: INSULIN REGULAR HUMAN 300 UNIT/3 ML VIAL SUBQ ONE ×2 (14:30→14:39)
[2022-06-21] MEDS ORDERED: MORPHINE 2 MG/ML CARPUJECT ONE (14:42)
[2022-06-21] MEDS ORDERED: BUPIVACAINE 0.25% PF 10 ML VIAL ONE (14:44)
[2022-06-21] MEDS ORDERED: LACTATED RINGERS 1,000 ML IV SCH (15:00)
[2022-06-21] MEDS ORDERED: ROPIVACAINE 0.5% PF 20 ML VIAL ONE (15:01)
[2022-06-21] MEDS ORDERED: fentaNYL 100 MCG/2 ML VIAL ONE ×2 (15:02→16:18)
[2022-06-21] MEDS ORDERED: PROPOFOL 200 MG/20 ML VIAL IVP ONE (15:02)
[2022-06-21] MEDS ORDERED: SODIUM CHLORIDE 0.9% 10 ML VIAL IVP ONE (15:05)
--- NOTE | 2022-06-21 15:07 | ANESTHESIA ---
Pre-Anesthesia VS, & Labs - Diagnosis LEFT HIP FRACTURE - Procedure LEFT HIP PINNING Vital Signs: Temp Pulse Resp BP Pulse Ox O2 Flow Rate 37.8 C 82 24 195/88 H 96 2 06/21/22 13:26 06/21/22 13:26 06/21/22 13:26 06/21/22 13:26 06/21/22 13:26 06/21/22 13:26 Height: 5 ft 6 in Weight (kg): 96.8 kg Body Mass Index: 34.4 BMI Classification: Obese - NPO >8 hours - Is Patient ?: No - Lab Results Current Lab Results: Laboratory Tests 06/21/22 05:40: Sodium 140, Potassium 4.1, Chloride 104, Carbon Dioxide 28, Anion Gap 8.0, BUN 9, Creatinine 0.6, Estimated GFR (MDRD) 94, Glucose 409 H, Calcium 9.3, Total Bilirubin 1.2 H, AST 19, ALT 16, Alkaline Phosphatase 106, Total Protein 6.6 L, Albumin 3.7, Globulin 2.9, Albumin/Globulin Ratio 1.3, Lipase 40 06/21/22 05:40: WBC 8.7, RBC 4.18 L, Hgb 13.3, Hct 41.3, MCV 98.8, MCH 31.8 H, MCHC 32.2, RDW 13.0, Plt Count 175, MPV 9.8, Neut # (Auto) 7.1 H, Lymph # (Auto) 1.0 L, [place] # (Auto) 0.5, Eos # (Auto) 0.1, Baso # (Auto) 0.0, Absolute Nucleated RBC 0.00, Nucleated RBC % 0.0 Fish Bones: 06/21/22 05:40 06/21/22 05:40 Home Medications and Allergies Active Medications Acetaminophen (Acetaminophen 325 Mg Tablet) 650 mg PO Q4HR PRN PRN Reason: Pain 1 to 4, or Fever Atropine Sulfate (Atropine Abboject 1 Mg/10 Ml Syringe) 0.5 mg IVP Q5M PRN PRN Reason: Bradycardia Stop: 06/22/22 14:28 Enoxaparin Sodium (Enoxaparin 40 Mg/0.4 Ml Syringe) 40 mg SUBQ DAILY [place]IS Fentanyl (Fentanyl 100 Mcg/2 Ml Vial) 25 - 50 mcg IVP Q5M PRN PRN Reason: BREAKTHROUGH PAIN (2nd Choice) Stop: 06/22/22 14:28 Hydromorphone HCl (Hydromorphone 0.5 Mg/0.5 Ml Syringe) 0.2 - 0.6 mg IVP Q5M PRN PRN Reason: PAIN (First Choice) Stop: 06/22/22 14:28 Potassium Chloride/Dextrose/Sod Cl (D5ns W/20 Meq Kcl) 1,000 mls @ 60 mls/hr IV .[id number] [facility] Lactated Ringer's (Lr) 1,000 mls @ 100 mls/hr IV .Q10H [facility] Stop: 06/22/22 00:59 Insulin Human Regular (Insulin Regular Human 300 Unit/3 Ml Vial) 1 - 5 unit SUBQ Q6HR LOIS; Protocol Morphine Sulfate (Morphine 2 Mg/Ml Carpuject) 2 mg IVP Q4HR PRN PRN Reason: Pain 8 to 10 Morphine Sulfate (Morphine 2 Mg/Ml Carpuject) 2 - 4 mg IVP Q5M PRN PRN Reason: PAIN (3rd Choice) Stop: 06/22/22 14:28 Last Admin: 06/21/22 14:45 Dose: 2 mg Naloxone HCl (Naloxone 0.4 Mg/Ml Vial) 0.1 mg IVP Q2M PRN PRN Reason: RESP RATE <8 Stop: 06/22/22 14:28 Ondansetron HCl (Ondansetron 4 Mg/2 Ml Vial) 4 mg IVP Q6HR PRN PRN Reason: Nausea / Vomiting Ondansetron HCl (Ondansetron 4 Mg/2 Ml Vial) 4 mg IVP ONCE PRN PRN Reason: N/V (First Choice) Stop: 06/22/22 14:28 Sodium Chloride (Sodium Chloride Flush 0.9% 10 Ml Syringe) 10 ml IVP PRN PRN PRN Reason: NEEDED PER PROVIDER ORDERS Sodium Chloride (Sodium Chloride Flush 0.9% 10 Ml Syringe) 10 ml IVP 0100,0900,1700 [facility] Albuterol Sulf [Ventolin Hfa Inhaler] 08/15/18 Cholecalciferol (Vitamin D3) [Vitamin D3] 08/15/18 Donepezil [Aricept] 08/15/18 Ferrous Gluconate [Iron] 08/15/18 Fluticasone/Salmeterol [Advair 250-50 Diskus] 08/15/18 Furosemide 08/15/18 Loratadine 08/15/18 Omeprazole 08/15/18 PARoxetine [Paxil] 08/15/18 Potassium Chloride 08/15/18 Simvastatin 08/15/18 Tiotropium [place] [Spiriva Handihaler] 08/15/18 amLODIPine [Norvasc] 08/15/18 glipiZIDE [Glipizide] 08/15/18 Allergies/Adverse Reactions: Allergies Allergy/AdvReac Type Severity Reaction Status Date / Time No Known Drug Allergies Allergy Verified 06/21/22 04:43 Anes History & Medical History - Anesthetic History Anesthesia Complications: reports: No previous complications Family history of Anesthesia Complications: Denies Family history of Malignant Hyperthermia: Denies - Medical History Cardiovascular: reports: Hypertension, High cholesterol Pulmonary: reports: Asthma Gastrointestinal: reports: None (WELL MANAGED), GERD Urinary: reports: Incontinence, Frequency Neuro: reports: Dementia Musculoskeletal: reports: None Endocrine/Autoimmune: reports: Type 2 diabetes Blood Disorders: reports: None Skin: reports: Other Smoking Status: Never smoker Psychosocial: reports: No issues indicated History of Cancer?: Yes (LUNG, BREAST ) - Surgical History General: reports: Appendectomy, Other (LUNG RESECTION FOR LUNG CA, PARTIAL MASTECTOMY) Gynecologic: reports: Hysterectomy, Other Neurologic: reports: Craniotomy Dermatologic: reports: Skin cancer surgery Exam General: Alert, Oriented x3, Cooperative, No acute distress Dental: Dentures full Upper Mouth Openin Fingerbreadth Neck Mobility: Normal Mallampati classification: III Thyromental Distance: less than 4 cm Mental/Cognitive Status: Normal for patient, Confused, Alert, Oriented to name Cognitive Status: Dementia Plan Anesthesia Type: General, Fascia Iliaca Block Consent for Procedure(s) Verified and Reviewed: Yes Code Status: Attempt Resuscitation ASA classification: 3-Severe systemic disease Is this case an emergency?: Yes
[2022-06-21] MEDS ORDERED: PHENYLEPHRINE 10 MG/ML VIAL ONE (15:09)
[2022-06-21] MEDS ORDERED: ACETAMINOPHEN 1,000 MG/100 ML 1,000 MG/100 ML BAG IV ONE (16:14)
[2022-06-21] MEDS ORDERED: TRANEXAMIC ACID 1,000 MG/10 ML VIAL ONE (16:15)
[2022-06-21] MEDS ORDERED: LACTATED RINGERS 1,000 ML IV ONE (17:40)
[2022-06-21] MEDS ORDERED: DOCUSATE SODIUM 100 MG CAPSULE PO PRN (17:45)
--- NOTE | 2022-06-21 17:48 | OPERATIVE REPORT ---
Operative Report - General Admit Date: 06/21/22 Procedure Date: 06/21/22 Planned Procedure: Open reduction internal fixation intertrochanteric fracture left hip and closed reduction left distal radius Pre-Op Diagnosis: Displaced intertrochanteric fracture left hip and displaced Colles' fractur Procedure Performed: Open reduction internal fixation intertrochanteric fracture left hip with [employer] InterTAN short integrated nail with 95 mm lag screw and 90 mm locking screw, distally locked with 37.5 millimeter screw Post Op Diagnosis: Same as preoperative diagnosis - Procedure Note Primary Surgeon: Jared Vazquez MD Secondary Surgeon: Ani Garcia PAC Anesthesia Provider: Sussy Torres CRNA Anesthesia Technique: General LMA Estimated Blood Loss (mL): 25 Indications: This is a 86-year-old woman with multiple comorbidities including obesity, diabetes mellitus, abnormal gait, history of cancer, And history of brain tumor excision. She took a fall onto her left side getting up to the bathroom and was unable to walk. She had pain to her left wrist and groin and upper thigh on the left side. She denies previous hip problems. Apparently, she has difficulty walking according to her . He states that she hobbles but she minimizes any difficulty. Her left wrist showed tenderness and mild deformity. Her left leg was shortened and externally rotated and had marked pain with passive motion left hip neurovascular was intact to upper and lower extremitiesHer x-rays show displaced fracture of the left distal radius with osteopenia. The fracture was shortened and angulated. The x-rays of the left hip showed a displaced intertrochanteric fracture with shortening, angulation and abnormal rotation. She was evaluated in the emergency room and by her hospitalist, in addition to myself and our print line inspector. The and her were in agreement to surgical treatment to try to stabilize her fracture of her left hip and improve her mortality. No matter how this fracture is treated there is significant morbidity and mortality but generally less with surgery.An informed consent was obtained from the patient and has been Findings: The fracture of the left distal radius show shortening, radial deviation and dorsiflexion of the distal fracture fragment. This appeared to be mostly an extra-articular fracture of the left distal radius. The intertrochanteric fracture of the left hip had fallen into some varus, shortening and external rotation but seem to align well with the fracture table.After the patient had been positioned on the fracture table, there was evidence of about a 30 degree flexion contracture to her left knee with varus deformity of the left knee consistent with advanced osteoarthritis of left knee. Her skin quality is poor, atrophic skin with yeast infection to her groin and perineum and under her breast. Complications: None - Other Other Information/Narrative: After satisfactory General anesthesia was achieved, the patient was transferred to the [place] fracture table in the supine position. Boot traction was applied to the left foot and well-leg barraza to the nonoperative right leg. Traction was applied to the left leg through the boot with the patella facing superiorly and the hip in a neutral position with regard to abduction and adduction and hip flexion/extension. The C-arm was used to assess the reduction and showed excellent alignment on both AP and lateral views. The left hip was then prepped and draped in a sterile manner in the usual fashion using a vertical Ioban transparent barrier. A timeout procedure was performed by the entire operating room team and all were in agreement. A 4 to 5 cm incision was made in line with the greater trochanter but proximal to the greater trochanter. The subcutaneous tissue and fascia were split. A starting bone awl was used to engage the trochanteric fossa at its most lateral edge. The starting awl was impacted to lesser trochanter and a guidepin was then inserted. The position of the guidepin was confirmed on both AP and lateral views. Reaming was then carried out with the starting reamer. The 11.5 mm diameter zahraa and guide was then utilized to insert the zahraa through the trochanteric area and pushed distally using C-arm image intensifier and biplanar mode. The lag screw guidepin was inserted through a separate incision more distal. This was inserted in the proximate midline in both AP and lateral C arm images. The depth of the guidepin was 99 mm. The compression screw drills were then utilized both short and long. The antirotation bar was inserted. The lag screw reamer was then utilized and placed over the previously inserted pin to the appropriate depth. The 95 mm lag screw was inserted and the compression screw followed achieving nice compression at the fracture site. The alignment of the fracture was very good on both AP and lateral views as well as the fixation. A third incision was made for the distal locking screw. Bicortical fixation was achieved with a 37.5 mm cortical screw. The wounds were irrigated. The subcutaneous tissue was closed with 2-0 Vicryl and the skin was closed with 3-0 Monocryl, Dermabond and dry sterile dressings. There is no deformity to the leg. The second portion of the procedure consisted of a closed reduction of her left distal radius and application of a padded volar fiberglass splint. The wrist was placed in slight palmar flexion, slight ulnar deviation. The C-arm image intensifier showed satisfactory and improved alignment of her left distal radius fracture.The patient tolerated the procedure well. She did receive 2 g of Ancef prior to the incision And 1 g of Tranxemic acid. Physician hair or beauty salon assistant was utilized and felt to be medically necessary to help with set up, prepping and draping, protection of vital structures with retraction, wound closure and application of splint
[2022-06-21] MEDS ORDERED: NS W/20 MEQ KCL 1,000 ML IV SCH (18:00)
--- NOTE | 2022-06-21 18:30 | ANESTHESIA POST OP EVALUATION ---
Anesthesia Post Eval - Post Anesthesia Eval Vitals: Last Vital Signs Temp 36.7 C 06/21/22 18:20 Pulse 73 06/21/22 18:20 Resp 17 06/21/22 18:20 BP 191/76 H 06/21/22 18:20 Pulse Ox 89 L 06/21/22 18:20 O2 Flow Rate 2 06/21/22 13:26 CV Function Including HR & BP: Stable Pain Control: Satisfactory Nausea & Vomiting: Negative Mental Status: Baseline Respiratory Status: Airway Patent, Other (deep breathing and cough encouraged after shallow breathing in pacu, 2L O2. denies pain. non-productive cough) Hydration Status: Satisfactory Anesthesia Complications: None
[2022-06-21] MEDS: SODIUM CHLORIDE FLUSH 0.9% 10 ML SYRINGE IVP SCH (19:24)
[2022-06-21] MEDS ORDERED: INSULIN LISPRO 300 UNIT/3 ML PEN SUBQ SCH (21:00)
[2022-06-21] MEDS: CEFAZOLIN 2G/50ML 0.9% NS 2 GM/50 ML BAG IV SCH (21:29)
[2022-06-21] MEDS: CELECOXIB 100 MG CAPSULE PO SCH (21:34)
[2022-06-21] MEDS: ACETAMINOPHEN 500 MG TABLET PO SCH (21:34)
[2022-06-21] MEDS: NYSTATIN POWDER 15 GM TOP SCH (21:35)
[2022-06-21 21:55] LABS: BILIRUBIN,URINE NEGATIVE (NEGATIVE); GLUCOSE, URINE (UA) 500 mg/dL (NEGATIVE); KETONES,URINE (UA) NEGATIVE (NEGATIVE); LEUKOCYTE ESTERASE, URINE TRACE (NEGATIVE); NITRITE,URINE NEGATIVE (NEGATIVE); OCCULT BLOOD,URINE SMALL (NEGATIVE); PROTEIN,URINE 30 mg/dL (NEGATIVE); UROBILINOGEN,URINE 1 (NORMAL) E.U./dL (NORMAL)
[2022-06-21 21:56] LABS: CLARITY,URINE CLOUDY (CLEAR)
[2022-06-21 22:02] LABS: RBC,URINE 0-5 /HPF (0-5); SQUAMOUS EPITHELIAL CELL,UR NONE SEEN (<= Few); WBC,URINE >25 /HPF (0-5)
[2022-06-21 22:03] LABS: BACTERIA,URINE Few /HPF (None Seen); YEAST,URINE PRESENT
[2022-06-22] MEDS: SODIUM CHLORIDE FLUSH 0.9% 10 ML SYRINGE IVP SCH ×3 (00:53→16:37)
--- NOTE | 2022-06-22 02:04 | XRAY Report ---
PROCEDURE: OR C-Arm Procedure INDICATIONS: FX LEFT HIP TECHNIQUE: 2 intraoperative fluoroscopic views obtained. COMPARISON: Hip/pelvis x-ray 06/21/2022 FINDINGS: 2 intraoperative fluoroscopic views demonstrate improved alignment status post open reduction and int ernal fixation of the previous the visualized intertrochanteric fracture of the proximal left femur. There is intramedullary zahraa with 2 surgical screws traversing the femoral neck as well as interlockin g screw within the proximal femoral shaft. IMPRESSION: 1. 2 intraoperative fluoroscopic views demonstrate improved alignment status post ORIF of left intert rochanteric fracture. Reviewed by: Bennett Ornelas MD on 06/22/2022 2:03 AM PDT Approved by: Bennett Ornelas MD on 06/22/2022 2:03 AM PDT Station ID: [id number]
[2022-06-22] MEDS ORDERED: SODIUM CHLORIDE 0.9% 50 ML IV ONE (06:17)
[2022-06-22] MEDS ORDERED: ceFAZolin 1 GM VIAL ONE (06:17)
[2022-06-22 06:29] LABS: BASOPHILS % (AUTO) 0.4 %; EOSINOPHILS % (AUTO) 0.4 %; HCT - HEMATOCRIT 35.5 % (37.0-47.0); HGB - HEMOGLOBIN 11.1 g/dL (12.0-16.0); LYMPHOCYTES % (AUTO) 12.2 %; MEAN CORPUSCULAR HEMOGLOBIN 31.5 pg (27.0-31.0); MEAN CORPUSCULAR HGB CONC 31.3 g/dL (32.0-36.0); MEAN CORPUSCULAR VOLUME 100.9 fL (81.0-99.0); MEAN PLATELET VOLUME 9.7 fL (7.9-10.8); MONOCYTES # (AUTO) 0.9 10^3/uL (0.0-1.0); MONOCYTES % (AUTO) 11.2 %; NEUTROPHILS # (AUTO) 6.2 10^3/uL (1.5-6.6); NEUTROPHILS % (AUTO) 75.1 %; PLT - PLATELET COUNT 154 10^3/uL (130-450); RED BLOOD COUNT 3.52 10^6/uL (4.20-5.40); RED CELL DISTRIBUTION WIDTH 13.2 % (12.0-15.0); WHITE BLOOD COUNT 8.3 x10^3/uL (4.8-10.8)
[2022-06-22 06:39] LABS: CALCIUM 8.5 mg/dL (8.5-10.3); CREATININE 0.7 mg/dL (0.4-1.0); MAGNESIUM 1.9 mg/dL (1.7-2.8); POTASSIUM 3.9 mmol/L (3.5-5.0)
[2022-06-22] MEDS: ACETAMINOPHEN 500 MG TABLET PO SCH ×3 (06:41→22:37)
[2022-06-22] MEDS: CEFAZOLIN 2G/50ML 0.9% NS 2 GM/50 ML BAG IV SCH (06:46)
[2022-06-22] MEDS: oxyCODONE 5 MG TABLET PO PRN ×2 (06:47→12:37)
[2022-06-22] MEDS ORDERED: INSULIN LISPRO 300 UNIT/3 ML PEN SUBQ SCH ×2 (08:00→12:00)
[2022-06-22] MEDS: NYSTATIN POWDER 15 GM TOP SCH ×2 (08:21→21:08)
[2022-06-22] MEDS: CELECOXIB 100 MG CAPSULE PO SCH ×2 (08:21→21:07)
[2022-06-22] MEDS: ENOXAPARIN 40 MG/0.4 ML SYRINGE SUBQ SCH (08:21)
[2022-06-22] MEDS: ASPIRIN EC 81 MG TABLET PO SCH ×2 (08:22→21:08)
[2022-06-22 08:38] LABS: ESTIMATED AVERAGE GLUCOSE 214 mg/dL (70-100); HEMOGLOBIN A1c% 9.1 % (4.27-6.07)
--- NOTE | 2022-06-22 10:39 | PROVIDER PROGRESS NOTE ---
Assessment/Plan - Problem List (1) Hip fracture, left Assessment/Plan: POD #1 of successful hip surgery by Dr acosta yesterday afternoon. She denies being in pain, got medicated for pain. Today planning to have PT and OT evaluation and start OOB I explained to and son at bedside about her likely needing a SNF for more rehab after DCh, and before returning home. 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 (2) Wrist fracture, left Conclusion/Plan: POD #1 after wrist was set by Ortho in OR yesterday, while under general anesthesia. Continue pain meds prn Management as per Orthopedics (4) Fall at home Conclusion/Plan: Etiology could be orthostasis from volume depletion or a potential infection, given the urinary frequency complaint. Another possibility, is that she has a L knee that is contracted (reported after surgery by Orthopedist), and maybe her abnormal gait caused the fall. Will check orthostatic vital sign checks. A repeat work-up of the urine is pending. She will have PT and OT evaluations done today (5) DM type 2 (diabetes mellitus, type 2) Conclusion/Plan: The patient is only on glipizide for diabetes treatment. The makes all the meals and he admitted to me today that she is on no diabetic diet whatsoe yumiko. He is the cook and "only opens canned food and warms it and heats up frozen dinners". The patient told me yesterday she checks her fingerstick glucose checks twice a day and the today said she has not done that in 2 years. Her A1c came back at 9.1, but adm glu was 400. Will order Nutrition consult for Diabetic education. Son wants to help. Continue with a diabetic diet while here, fingerstick checks and sliding scale insulin coverage. She is continuing on her glipizide. Will add metformin 500 twice daily as well. Will try to reach her PCP to see why Metformin was stopped. (6) Hematuria Conclusion/Plan: The patient reported yesterday seeing blood in her urine recently. The ED provider got a history from the patient's of urinary frequency and urgency. Her initial UA had many squamous cells. We are repeat her UA and to send for culture if indicated (7) Dementia Conclusion/Plan: The patient has a poor memory which was evident during our first meeting. Her medication list showed that she was on Aricept, but the said that Aricept was stopped for unknown reason. Also that she has a "memory doctor" Will determine hopefully from PCP, why Aricept was stopped. Will continue it for now. SW for assistance going forward. (8) Hx Asthma Her admission H&P said that she has a history of COPD. The son, at bedside today, said she never had COPD, was never a smoker. Son and said it was Hx of Asthma. She used to take inhalers when she had "wheezing attacks" according to the . The also reported that after they got rid of all pets, she has had no more wheezing attacks. Her O2 sats have dropped to 88% and because she is not a COPD-er, we will continue with supplemental oxygen until sats are greater than 90 to 92%. (9) Hx lung cancer Per the son, a lobe was removed. Per the (forgetful) , only the mass in the lung was removed. She has a Engineer Technical Staff who follows her. - Current Meds Current Meds: Current Medications Generic Name Dose Route Start Last Admin Trade Name Freq PRN Reason Stop Dose Admin Acetaminophen 1,000 mg 06/21/22 22:00 06/22/22 06:41 Acetaminophen 500 Mg Tablet PO 1,000 mg TID LOIS Administration Aspirin 81 mg 06/22/22 09:00 06/22/22 08:22 Aspirin Ec 81 Mg Tablet PO 81 mg BID LOIS Administration Celecoxib 200 mg 06/21/22 21:00 06/22/22 08:21 Celecoxib 100 Mg Capsule PO 200 mg BID LOIS Administration Enoxaparin Sodium 40 mg 06/22/22 09:00 06/22/22 08:21 Enoxaparin 40 Mg/0.4 Ml Syringe SUBQ 40 mg DAILY LOIS Administration Potassium Chloride/Dextrose/Sod Cl 1,000 mls @ 40 mls/hr 06/21/22 18:52 06/21/22 22:58 D5ns W/20 Meq Kcl IV 40 mls/hr .Q25H LOIS Infusion Insulin Human Lispro 1 - 9 unit 06/22/22 08:00 06/22/22 08:22 Insulin Lispro 300 Unit/3 Ml Pen SUBQ 7 unit 0800,1200,1700,2100 LOIS Administration Protocol Nystatin 1 applic 06/21/22 21:00 06/22/22 08:21 Nystatin Powder 15 Gm TOP 1 applic BID LOIS Administration Oxycodone HCl 5 mg 06/21/22 17:45 06/22/22 06:47 Oxycodone 5 Mg Tablet PO 5 mg Q6HR PRN Administration PAIN Sodium Chloride 10 ml 06/21/22 17:00 06/22/22 08:23 Sodium Chloride Flush 0.9% 10 Ml Syringe IVP Not Given 0100,0900,1700 [facility] - Lab Result Fish Bone Diagrams: 06/22/22 06:06 06/22/22 06:06 - Additional Planning My Orders: My Active Orders 06/21/22 10:48 Acetaminophen [Tylenol] 650 mg PO Q4HR PRN Morphine Inj (Carpuject) [Morphine (Carpuject)] 2 mg IVP Q4HR PRN Ondansetron Inj [Zofran Inj] 4 mg IVP Q6HR PRN Sodium Chloride Flush 0.9% [Normal Saline Flush 0.9%] 10 ml IVP PRN PRN 06/21/22 10:49 Activity Orders [RC] Q2HR IO [RC] IOSHIFT Initiate Line Care Protocol [RC] QSHIFT Initiate Personal Care Protoco [RC] .protocol Oxygen Therapy [RC] .PRN Vital Signs [RC] 0800,1600,0000 Code Status [OTHERS] Routine Condition of Patient [OTHERS] Routine DVT Prophylaxis [OTHERS] Routine 06/21/22 10:51 Orthopedics Consult [CONS] Routine 06/21/22 11:17 Initiate Hypoglycemia Protocol [RC] .protocol 06/21/22 Dinner Carb-controlled Diet [DIET] 06/21/22 17:00 Sodium Chloride Flush 0.9% [Normal Saline Flush 0.9%] 10 ml IVP 0100,0900,1700 06/21/22 18:52 Blood Glucose Checks - Eating [RC] 0800,1200,1700,2100 D5ns W/20 Meq KCl 1,000 ml IV 40 mls/hr 06/21/22 21:00 Nystatin [Nystop] 1 applic TOP BID 06/21/22 21:30 CUL, URINE [RM] Stat 06/22/22 08:00 Insulin Lispro [Humalog Kwikpen U-100] 1 - 9 unit SUBQ 0800,1200,1700,2100 06/22/22 09:00 Enoxaparin [Lovenox] 40 mg SUBQ DAILY 06/23/22 05:00 BMP - BASIC METABOLIC PANEL [CHEM] DAILYLAB CBC - COMP BLD CT W/AUTO DIFF [HEME] DAILYLAB 06/24/22 05:00 BMP - BASIC METABOLIC PANEL [CHEM] DAILYLAB CBC - COMP BLD CT W/AUTO DIFF [HEME] DAILYLAB 06/25/22 05:00 BMP - BASIC METABOLIC PANEL [CHEM] DAILYLAB CBC - COMP BLD CT W/AUTO DIFF [HEME] DAILYLAB Subjective - Subjective Patient Reports: Resting Comfortably, No Complaints Objective Vital Signs: Vital Signs - 24 hr 06/21/22 06/21/22 06/21/22 12:00 13:26 17:40 Temperature 36.8 C 37.8 C 37.4 C Heart Rate 87 82 71 Heart Rate [ Brachial] Respiratory 20 24 18 Rate Blood Pressure 174/82 H 195/88 H 173/87 H Blood Pressure [Left Brachial artery] Blood Pressure [Right Brachial artery] O2 Saturation 97 96 100 If not protocol 2 : Oxygen Flow, liters/minute 06/21/22 06/21/22 06/21/22 17:47 17:50 17:55 Temperature 37.6 C Heart Rate 68 69 71 Heart Rate [ Brachial] Respiratory 14 18 18 Rate Blood Pressure 166/68 H 168/59 H 176/64 H Blood Pressure [Left Brachial artery] Blood Pressure [Right Brachial artery] O2 Saturation 99 100 100 If not protocol : Oxygen Flow, liters/minute 06/21/22 06/21/22 06/21/22 18:00 18:07 18:10 Temperature Heart Rate 72 73 79 Heart Rate [ Brachial] Respiratory 18 18 21 Rate Blood Pressure 176/54 H 165/71 H 167/84 H Blood Pressure [Left Brachial artery] Blood Pressure [Right Brachial artery] O2 Saturation 100 100 100 If not protocol : Oxygen Flow, liters/minute 06/21/22 06/21/22 06/21/22 18:15 18:20 18:27 Temperature 36.7 C Heart Rate 82 73 76 Heart Rate [ Brachial] Respiratory 19 17 22 Rate Blood Pressure 191/76 H 191/76 H 140/85 H Blood Pressure [Left Brachial artery] Blood Pressure [Right Brachial artery] O2 Saturation 92 89 L 93 If not protocol : Oxygen Flow, liters/minute 06/21/22 06/21/22 06/21/22 18:45 19:15 19:45 Temperature 36.4 C L 36.5 C 36.5 C Heart Rate Heart Rate [ 72 76 69 Brachial] Respiratory 20 24 24 Rate Blood Pressure Blood Pressure [Left Brachial artery] Blood Pressure 166/69 H 146/94 H 150/61 H [Right Brachial artery] O2 Saturation 96 97 97 If not protocol 3 3 2 : Oxygen Flow, liters/minute 06/21/22 06/21/22 06/21/22 19:52 20:45 21:45 Temperature 36.7 C 37.1 C Heart Rate Heart Rate [ 74 69 Brachial] Respiratory 20 24 Rate Blood Pressure Blood Pressure [Left Brachial artery] Blood Pressure 148/58 H 152/65 H [Right Brachial artery] O2 Saturation 96 97 If not protocol 3 2 2 : Oxygen Flow, liters/minute 06/22/22 06/22/22 06/22/22 00:00 05:15 08:00 Temperature 36.5 C 37.1 C 36.7 C Heart Rate Heart Rate [ 72 78 85 Brachial] Respiratory 24 20 18 Rate Blood Pressure Blood Pressure 144/57 H 144/55 H [Left Brachial artery] Blood Pressure 130/58 L [Right Brachial artery] O2 Saturation 94 94 93 If not protocol 2 1 1 : Oxygen Flow, liters/minute 06/22/22 06/22/22 08:30 08:45 Temperature Heart Rate Heart Rate [ Brachial] Respiratory Rate Blood Pressure Blood Pressure [Left Brachial artery] Blood Pressure [Right Brachial artery] O2 Saturation 89 L 93 If not protocol 1 : Oxygen Flow, liters/minute Oxygen O2 Source Nasal cannula Oxygen Flow Rate 2 I&O (Last 24 Hrs): Intake and Output Totals x24h 06/20/22 06/21/22 06/22/22 23:59 23:59 23:59 Intake Total 616.000 590 Output Total 625 150 Balance -9.000 440 General: Alert, No acute distress, Other (Disheveled) HEENT: EOMI, Mucous membr. moist/pink Neck: Supple, No JVD Neuro: Alert, Other (Poor memory) Cardiovascular: Regular rate Respiratory: No respiratory distress Abdomen: Soft, Other (Obese with pannus. Redness under both breasts) Extremities: No clubbing, No edema - Results Results: Laboratory Results WBC 8.3 x10^3/uL (4.8-10.8) 06/22/22 06:06 RBC 3.52 10^6/uL (4.20-5.40) L 06/22/22 06:06 Hgb 11.1 g/dL (12.0-16.0) L 06/22/22 06:06 Hct 35.5 % (37.0-47.0) L 06/22/22 06:06 MCV 100.9 fL (81.0-99.0) H 06/22/22 06:06 MCH 31.5 pg (27.0-31.0) H 06/22/22 06:06 MCHC 31.3 g/dL (32.0-36.0) L 06/22/22 06:06 RDW 13.2 % (12.0-15.0) 06/22/22 06:06 Plt Count 154 10^3/uL (130-450) 06/22/22 06:06 MPV 9.7 fL (7.9-10.8) 06/22/22 06:06 Neut # (Auto) 6.2 10^3/uL (1.5-6.6) 06/22/22 06:06 Lymph # (Auto) 1.0 10^3/uL (1.5-3.5) L 06/22/22 06:06 [place] # (Auto) 0.9 10^3/uL (0.0-1.0) 06/22/22 06:06 Eos # (Auto) 0.0 10^3/uL (0.0-0.7) 06/22/22 06:06 Baso # (Auto) 0.0 10^3/uL (0.0-0.1) 06/22/22 06:06 Absolute Nucleated RBC 0.00 x10^3/uL 06/22/22 06:06 Nucleated RBC % 0.0 /100WBC 06/22/22 06:06 Sodium 136 mmol/L (135-145) 06/22/22 06:06 Potassium 3.9 mmol/L (3.5-5.0) 06/22/22 06:06 Chloride 103 mmol/L (101-111) 06/22/22 06:06 Carbon Dioxide 26 mmol/L (21-32) 06/22/22 06:06 Anion Gap 7.0 (6-13) 06/22/22 06:06 BUN 15 mg/dL (6-20) 06/22/22 06:06 Creatinine 0.7 mg/dL (0.4-1.0) 06/22/22 06:06 Estimated GFR (MDRD) 79 (>89) L 06/22/22 06:06 Glucose 340 mg/dL (70-100) H 06/22/22 06:06 Estimat Average Glucose 214 mg/dL (70-100) H 06/22/22 06:06 Hemoglobin A1c % 9.1 % (4.27-6.07) H 06/22/22 06:06 Calcium 8.5 mg/dL (8.5-10.3) 06/22/22 06:06 Magnesium 1.9 mg/dL (1.7-2.8) 06/22/22 06:06 Total Bilirubin 1.2 mg/dL (0.2-1.0) H 06/21/22 05:40 AST 19 IU/L (10-42) 06/21/22 05:40 ALT 16 IU/L (10-60) 06/21/22 05:40 Alkaline Phosphatase 106 IU/L (42-121) 06/21/22 05:40 Total Protein 6.6 g/dL (6.7-8.2) L 06/21/22 05:40 Albumin 3.7 g/dL (3.2-5.5) 06/21/22 05:40 Globulin 2.9 g/dL (2.1-4.2) 06/21/22 05:40 Albumin/Globulin Ratio 1.3 (1.0-2.2) 06/21/22 05:40 Lipase 40 U/L (22-51) 06/21/22 05:40 Urine Color YELLOW 06/21/22 21:30 Urine Clarity CLOUDY (CLEAR) 06/21/22 21:30 Urine pH 6.0 PH (5.0-7.5) 06/21/22 21:30 Ur Specific [place] >=1.030 (1.002-1.030) H 06/21/22 21:30 Urine Protein 30 mg/dL (NEGATIVE) H 06/21/22 21:30 Urine Glucose (UA) 500 mg/dL (NEGATIVE) H 06/21/22 21:30 Urine Ketones NEGATIVE mg/dL (NEGATIVE) 06/21/22 21:30 Urine Occult Blood SMALL (NEGATIVE) H 06/21/22 21:30 Urine Nitrite NEGATIVE (NEGATIVE) 06/21/22 21:30 Urine Bilirubin NEGATIVE (NEGATIVE) 06/21/22 21:30 Urine Urobilinogen 1 (NORMAL) E.U./dL (NORMAL) 06/21/22 21:30 Ur Leukocyte Esterase TRACE (NEGATIVE) H 06/21/22 21:30 Urine RBC 0-5 /HPF (0-5) 06/21/22 21:30 Urine WBC >25 /HPF (0-5) H 06/21/22 21:30 Ur Squamous Epith Cells NONE SEEN (<= Few) 06/21/22 21:30 Urine Bacteria Few /HPF (None Seen) 06/21/22 21:30 Urine Yeast PRESENT 06/21/22 21:30 Ur Microscopic Review INDICATED 06/21/22 08:50 Urine Culture Comments INDICATED 06/21/22 21:30 SARS-CoV-2 (PCR) NOT DETECTED 06/21/22 06:50
--- NOTE | 2022-06-22 10:56 | PHARMACY PROGRESS NOTE ---
- Best Possible Medication History Admit Date and Time: 06/21/22 1048 Processed by: Pharmacy Medication History completed: Yes Patient Interview: Completed Secondary Source(s): Spouse/Significant other (Spoke with Son and . Son provided pictures of Rx bottles sent from Grandson. gives 8 pills total each day in the morning, which corresponds to # of meds. states they both see fam Doc, Amanda Jaimes MD at [facility] in [place], but she had retired. Don't remember new Doc name.), Other family member As the person ultimately responsible for medication therapy, providers are able to order a medication from an existing home medication list in [facility] via the "Reconcile Routine" prior to Confirmation of that medication by support team member. Such practice is discouraged except when the physician, in their clinical judgment, deems that a medical need exists for a medication without regard to previous use.
--- NOTE | 2022-06-22 13:27 | PROVIDER PROGRESS NOTE ---
Subjective - General Admit Date: 06/21/22 Procedure Date: 06/21/22 Post Op Days: 1 Procedure Performed: Open reduction internal fixation left hip intertrochanteric fracture, close - Review of Systems All Other Systems: positive: Reviewed and negative (This was limited information because of the patient's dementia and the could not be reached.) - Other Other Information/Narrative: Patient is alert, articulate and reports mild pain to her left hip. She does not seem to have much pain at all to her left wrist. Objective - Patient Data Vital Signs: Vital Signs x48h Temp Pulse Resp BP Pulse Ox O2 Flow Rate 06/22/22 11:33 36.9 C 80 20 145/55 H 93 1 06/22/22 08:45 93 1 06/22/22 08:30 89 L 06/22/22 08:00 36.7 C 85 18 144/55 H 93 1 Weight: Weight 06/20/22 06/21/22 06/22/22 23:59 23:59 23:59 Weight (kg) 98.6 kg Intake & Output: Intake and Output Totals x24h 06/20/22 06/21/22 06/22/22 23:59 23:59 23:59 Intake Total 473.729 9484 Output Total 625 150 Balance -9.000 1940 - Lab Results Lab Results: 06/22/22 06:06 06/22/22 06:06 Other Lab Results: Lab Results x24hrs 06/22/22 06/22/22 06/22/22 Range/Units 06:06 06:06 06:06 WBC 8.3 (4.8-10.8) x10^3/uL RBC 3.52 L (4.20-5.40) 10^6/uL Hgb 11.1 L (12.0-16.0) g/dL Hct 35.5 L (37.0-47.0) % MCV 100.9 H (81.0-99.0) fL MCH 31.5 H (27.0-31.0) pg MCHC 31.3 L (32.0-36.0) g/dL RDW 13.2 (12.0-15.0) % Plt Count 154 (130-450) 10^3/uL MPV 9.7 (7.9-10.8) fL Neut # (Auto) 6.2 (1.5-6.6) 10^3/uL Lymph # (Auto) 1.0 L (1.5-3.5) 10^3/uL [place] # (Auto) 0.9 (0.0-1.0) 10^3/uL Eos # (Auto) 0.0 (0.0-0.7) 10^3/uL Baso # (Auto) 0.0 (0.0-0.1) 10^3/uL Absolute Nucleated RBC 0.00 x10^3/uL Nucleated RBC % 0.0 /100WBC Sodium 136 (135-145) mmol/L Potassium 3.9 (3.5-5.0) mmol/L Chloride 103 (101-111) mmol/L Carbon Dioxide 26 (21-32) mmol/L Anion Gap 7.0 (6-13) BUN 15 (6-20) mg/dL Creatinine 0.7 (0.4-1.0) mg/dL Estimated GFR (MDRD) 79 L (>89) Glucose 340 H (70-100) mg/dL Estimat Average Glucose 214 H (70-100) mg/dL Hemoglobin A1c % 9.1 H (4.27-6.07) % Calcium 8.5 (8.5-10.3) mg/dL Magnesium 1.9 (1.7-2.8) mg/dL Urine Color Urine Clarity (CLEAR) Urine pH (5.0-7.5) PH Ur Specific [place] (1.002-1.030) Urine Protein (NEGATIVE) mg/dL Urine Glucose (UA) (NEGATIVE) mg/dL Urine Ketones (NEGATIVE) mg/dL Urine Occult Blood (NEGATIVE) Urine Nitrite (NEGATIVE) Urine Bilirubin (NEGATIVE) Urine Urobilinogen (NORMAL) E.U./dL Ur Leukocyte Esterase (NEGATIVE) Urine RBC (0-5) /HPF Urine WBC (0-5) /HPF Ur Squamous Epith Cells (<= Few) Urine Bacteria (None Seen) /HPF Urine Yeast Urine Culture Comments 06/21/22 Range/Units 21:30 WBC (4.8-10.8) x10^3/uL RBC (4.20-5.40) 10^6/uL Hgb (12.0-16.0) g/dL Hct (37.0-47.0) % MCV (81.0-99.0) fL MCH (27.0-31.0) pg MCHC (32.0-36.0) g/dL RDW (12.0-15.0) % Plt Count (130-450) 10^3/uL MPV (7.9-10.8) fL Neut # (Auto) (1.5-6.6) 10^3/uL Lymph # (Auto) (1.5-3.5) 10^3/uL [place] # (Auto) (0.0-1.0) 10^3/uL Eos # (Auto) (0.0-0.7) 10^3/uL Baso # (Auto) (0.0-0.1) 10^3/uL Absolute Nucleated RBC x10^3/uL Nucleated RBC % /100WBC Sodium (135-145) mmol/L Potassium (3.5-5.0) mmol/L Chloride (101-111) mmol/L Carbon Dioxide (21-32) mmol/L Anion Gap (6-13) BUN (6-20) mg/dL Creatinine (0.4-1.0) mg/dL Estimated GFR (MDRD) (>89) Glucose (70-100) mg/dL Estimat Average Glucose (70-100) mg/dL Hemoglobin A1c % (4.27-6.07) % Calcium (8.5-10.3) mg/dL Magnesium (1.7-2.8) mg/dL Urine Color YELLOW Urine Clarity CLOUDY (CLEAR) Urine pH 6.0 (5.0-7.5) PH Ur Specific [place] >=1.030 H (1.002-1.030) Urine Protein 30 H (NEGATIVE) mg/dL Urine Glucose (UA) 500 H (NEGATIVE) mg/dL Urine Ketones NEGATIVE (NEGATIVE) mg/dL Urine Occult Blood SMALL H (NEGATIVE) Urine Nitrite NEGATIVE (NEGATIVE) Urine Bilirubin NEGATIVE (NEGATIVE) Urine Urobilinogen 1 (NORMAL) (NORMAL) E.U./dL Ur Leukocyte Esterase TRACE H (NEGATIVE) Urine RBC 0-5 (0-5) /HPF Urine WBC >25 H (0-5) /HPF Ur Squamous Epith Cells NONE SEEN (<= Few) Urine Bacteria Few (None Seen) /HPF Urine Yeast PRESENT Urine Culture Comments INDICATED - Current Medications Current Medications: Current Medications Generic Name Dose Route Start Last Admin Trade Name Freq PRN Reason Stop Dose Admin Acetaminophen 1,000 mg 06/21/22 22:00 06/22/22 12:37 Acetaminophen 500 Mg Tablet PO 1,000 mg TID LOIS Administration Aspirin 81 mg 06/22/22 09:00 06/22/22 08:22 Aspirin Ec 81 Mg Tablet PO 81 mg BID LOIS Administration Celecoxib 200 mg 06/21/22 21:00 06/22/22 08:21 Celecoxib 100 Mg Capsule PO 200 mg BID LOIS Administration Enoxaparin Sodium 40 mg 06/22/22 09:00 06/22/22 08:21 Enoxaparin 40 Mg/0.4 Ml Syringe SUBQ 40 mg DAILY LOIS Administration Insulin Human Lispro 2 - 10 unit 06/22/22 12:00 06/22/22 12:00 Insulin Lispro 300 Unit/3 Ml Pen SUBQ 10 unit 0800,1200,1700,2100 LOIS Administration Protocol Nystatin 1 applic 06/21/22 21:00 06/22/22 08:21 Nystatin Powder 15 Gm TOP 1 applic BID LOIS Administration Oxycodone HCl 5 mg 06/21/22 17:45 06/22/22 12:37 Oxycodone 5 Mg Tablet PO 5 mg Q6HR PRN Administration PAIN Sodium Chloride 10 ml 06/21/22 17:00 06/22/22 08:23 Sodium Chloride Flush 0.9% 10 Ml Syringe IVP Not Given 0100,0900,1700 [facility] - Physical Exam Comments/Other: She certainly looks much better clinically than yesterday. Her splint is intact to left wrist and forearm. Color, motion sensation intact fingers left hand. Left lower extremity shows no clinical deformity, neurovascular intact, dressing to left hip dry and intact, no overt sign of hematoma to left thigh. I can move her left leg much better than yesterday, much less pain. Impression/Plan - Problem List Problem List: 1. Status post open reduction internal fixation with intramedullary zahraa/hip sc rew left hip intertrochanteric fracture The plan is for physical and Occupational Therapy, use of walker, weightbearing as tolerated on left leg.There are no sutures that need to be removed. She has a Mepilex dressing to her incisions. The Mepilex dressing can stay in place for at least 1 week. 2. Colles' fracture left wrist She needs to use a platform walker, weightbearing on left forearm, no weightbearing on left wrist.Her splint will be converted most likely to brace or cast at the clinic. She will need wrist immobilization for her left distal radius fracture for approximately 6 weeks. 3. Deep venous thrombosis prophylaxis I ordered aspirin 81 mg twice daily. The hospitalist was ordered Lovenox. One of the other probably could be discontinued, will leave to the discretion of our hospitalist who is managing all of her medications.Deep venous thrombosis prophylaxis should continue for approximately 6 weeks postoperatively. 4. She has multiple comorbidities, all of which can affect outcome and these are being managed by our hospitalist as well. The patient was most likely be best served with a recovery at a group home where she cannot obtained better care than at home. This would include hopefully physical therapy, weightbearing with walker. She needs to use a walker indefinitely to prevent fall. She will need a follow-up to the orthopedic clinic within 2 weeks of discharge.
[2022-06-22] MEDS: SODIUM CHLORIDE FLUSH 0.9% 10 ML SYRINGE IVP PRN (16:19)
[2022-06-22] MEDS: ACETAMINOPHEN 325 MG TABLET PO PRN (16:36)
[2022-06-22] MEDS ORDERED: glipiZIDE 5 MG TABLET PO SCH (17:00)
[2022-06-22] MEDS ORDERED: metFORMIN 500 MG TABLET PO SCH (17:00)
[2022-06-22] MEDS: ATORVASTATIN 10 MG TABLET PO SCH (21:08)
[2022-06-23] MEDS: ACETAMINOPHEN 500 MG TABLET PO SCH ×3 (06:05→21:00)
[2022-06-23] MEDS: SODIUM CHLORIDE FLUSH 0.9% 10 ML SYRINGE IVP SCH ×3 (06:06→17:02)
[2022-06-23 06:09] LABS: BASOPHILS % (AUTO) 0.3 %; EOSINOPHILS # (AUTO) 0.2 10^3/uL (0.0-0.7); EOSINOPHILS % (AUTO) 1.5 %; HCT - HEMATOCRIT 32.1 % (37.0-47.0); HGB - HEMOGLOBIN 10.3 g/dL (12.0-16.0); LYMPHOCYTES # (AUTO) 1.3 10^3/uL (1.5-3.5); LYMPHOCYTES % (AUTO) 12.9 %; MEAN CORPUSCULAR HEMOGLOBIN 32.1 pg (27.0-31.0); MEAN CORPUSCULAR HGB CONC 32.1 g/dL (32.0-36.0); MEAN PLATELET VOLUME 10.1 fL (7.9-10.8); MONOCYTES # (AUTO) 0.7 10^3/uL (0.0-1.0); MONOCYTES % (AUTO) 6.5 %; PLT - PLATELET COUNT 142 10^3/uL (130-450); RED BLOOD COUNT 3.21 10^6/uL (4.20-5.40); RED CELL DISTRIBUTION WIDTH 13.2 % (12.0-15.0); WHITE BLOOD COUNT 10.2 x10^3/uL (4.8-10.8)
[2022-06-23 06:18] LABS: CALCIUM 8.7 mg/dL (8.5-10.3); CREATININE 0.6 mg/dL (0.4-1.0); POTASSIUM 3.6 mmol/L (3.5-5.0)
--- NOTE | 2022-06-23 08:28 | PROVIDER PROGRESS NOTE ---
Assessment/Plan - Problem List (1) Hip fracture, left Assessment/Plan: POD #2 of successful hip surgery by Dr Vazquez. her pain is under conrrrol with meds. PT and OT evaluations and OOB started. The plan is for more rehab at a SNF. (2) Rash Conclusion/Plan: Starting last night she developed a rash on her upper abdomen. Today the rash extends down the entire abdomen. It is raised and dark pink. It is nonpruritic. RN spoke to pharmacist and they reviewed what her new meds were: She received several including 1 antibiotic dose, she is on new aspirin twice daily, she received hospital formulary glipizide tablets. We will stop the glipizide. Will order patient's own med glipizide. We will use sliding scale insulin coverage for her diabetic management. Will order topical hydrocortisone cream for the rash. No Benadryl, since she has no pruritus. (3) Wrist fracture, left Conclusion/Plan: POD #2 after wrist was set by Ortho in OR yesterday, while under general anesthesia. Continue pain meds prn Management as per Orthopedics (4) Fall at home Conclusion/Plan: Etiology could be orthostasis from volume depletion or a potential infection, given the urinary frequency complaint. Another possibility, is that she has a L knee that is contracted (reported after surgery by Orthopedist), and maybe her abnormal gait caused the fall. Will check orthostatic vital signs with PT/OT. A repeat work-up of the urine showed no UTI She will have PT and OT evaluations done today (5) DM type 2 (diabetes mellitus, type 2) Conclusion/Plan: The patient was only on glipizide for diabetes treatment. The makes all the meals and he admitted to me at admission, that she is on no diabetic diet whatsoever. He is the cook and "only opens canned food and warms it and heats up frozen dinners". The patient claimed she checks her fingerstick glucose checks twice a day and the said she has not done that in 2 years. Yesterday, he reported they eat donuts and Twinkies and tjhought the Glipizide would "jacki care of the Diabetes". Today we learned from our Riveter that they both drink "sugar water" all day, for hydration. We asked for PCP records to see why prior Metformin was stopped. We received records from [facility]. Her PCP is now Dr. Jenae Armas. There is no information in those records on why Metformin was stopped and Glipizide started. Also records state the pt told the PCP she checks her fingerstick glu twice a day and more lancets were ordered. There was nothing documented about discussing management or a diabetic diet. Her A1c came back at 9.1, but adm glu was 400. We ordered Nutrition consult for Diabetic education. Son wanted to learn how to help. Continue with a diabetic diet while here, fingerstick checks and sliding scale insulin coverage. After discussion with pharmacy today, and her glipizide was increased to twice daily. Despitethis her night glucose was 400 and this morning 300. Because of her high glu numbers and her new rash (see #2), will stop hospital formulary glipizide and use sliding scale insulin coverage, and then Pt's own med Glipizide bid. (6) Dementia Conclusion/Plan: The patient has a poor memory which was evident during our first meeting. Her medication list showed that she was on Aricept, but the said that Aricep t was stopped for unknown reason. Also that she has a "memory doctor" We asked for PCP records to see why Aricept was stopped. Her Neurologist is Dr Camacho Kellogg and her Aricept was stopped because it caused bradycardia. She was offered to start Memantine, but she and her declined it. SW for assistance going forward. (7) Hx Asthma Her admission H&P said that she has a history of COPD. The son, at bedside today, said she never had COPD, was never a smoker. Son and said it was Hx of Asthma. She used to take inhalers when she had "wheezing attacks" a ccording to the . The also reported that after they got rid of all pets, she has had no more wheezing attacks. Her O2 sats have dropped to 88% and because she is not a COPD-er, we will continue with supplemental oxygen until sats are greater than 90 to 92%. (8) Hx lung cancer Per the son, a lobe was removed. Per the , only the mass in the lung was removed. We asked for PCP records and read that she had a wedge lung resection. She has a Nursing Attendant who follows her. Records also show that she had breat CA and got Tamoxifen and radiation after lumpectomy. She has also had many skin cancers removed: Squamous cell and Melanomas. (9) Hematuria Conclusion/Plan: Possibly resolved. At admission, the patient reported seeing blood in her urine recently (although, given her dementia, this report is now in question) The ED provider got a history from the patient's of urinary frequency and urgency. Her initial UA was abnormal but had many squamous cells. We have repeated her UA and the urine culture grew yeast. Because of her DM and her skin fungus, will treat a yeast UTI with Fluconazole 200 mg bid for 14 days. - Current Meds Current Meds: Current Medications Generic Name Dose Route Start Last Admin Trade Name Freq PRN Reason Stop Dose Admin Acetaminophen 650 mg 06/21/22 10:48 06/22/22 16:36 Acetaminophen 325 Mg Tablet PO 650 mg Q4HR PRN Administration Pain 1 to 4, or Fever Acetaminophen 1,000 mg 06/21/22 22:00 06/23/22 06:05 Acetaminophen 500 Mg Tablet PO Not Given TID LOIS Aspirin 81 mg 06/22/22 09:00 06/22/22 21:08 Aspirin Ec 81 Mg Tablet PO 81 mg BID LOIS Administration Atorvastatin Calcium 20 mg 06/22/22 21:00 06/22/22 21:08 Atorvastatin 10 Mg Tablet PO 20 mg HS LOIS Administration Celecoxib 200 mg 06/21/22 21:00 06/22/22 21:07 Celecoxib 100 Mg Capsule PO 200 mg BID LOIS Administration Enoxaparin Sodium 40 mg 06/22/22 09:00 06/22/22 08:21 Enoxaparin 40 Mg/0.4 Ml Syringe SUBQ 40 mg DAILY LOIS Administration Nystatin 1 applic 06/21/22 21:00 06/22/22 21:08 Nystatin Powder 15 Gm TOP 1 applic BID LOIS Administration Oxycodone HCl 5 mg 06/21/22 17:45 06/22/22 12:37 Oxycodone 5 Mg Tablet PO 5 mg Q6HR PRN Administration PAIN Sodium Chloride 10 ml 06/21/22 10:48 06/22/22 16:19 Sodium Chloride Flush 0.9% 10 Ml Syringe IVP 10 ml PRN PRN Administration NEEDED PER PROVIDER ORDERS Sodium Chloride 10 ml 06/21/22 17:00 06/23/22 06:06 Sodium Chloride Flush 0.9% 10 Ml Syringe IVP 10 ml 0100,0900,1700 [facility] Administration - Lab Result Fish Bone Diagrams: 06/23/22 05:40 06/23/22 05:40 - Additional Planning My Orders: My Active Orders 06/22/22 09:00 Enoxaparin [Lovenox] 40 mg SUBQ DAILY 06/22/22 10:40 Nutrition Consult [CONS] Routine 06/22/22 11:13 Orthostatic [Vital Signs - Orthostatic] [RC] DAILY 06/22/22 21:00 Atorvastatin [Lipitor] 20 mg PO HS 06/23/22 09:00 Docusate Sodium 250Mg Capsule [Colace 250Mg Capsule] 250 - 500 mg PO DAILY Hydrocortisone 1% Cream [Hydrocortisone] 1 applic TOP BID Losartan [Cozaar] 50 mg PO DAILY PARoxetine [Paxil] 20 mg PO DAILY Senna [Senokot] 8.6 - 17.2 mg PO DAILY polyethylene glycoL 3350 [Miralax] 17 gm PO DAILY 06/23/22 12:00 Insulin Lispro [Humalog Kwikpen U-100] 1 - 5 unit SUBQ 0800,1200,1700,2100 06/24/22 05:00 BMP - BASIC METABOLIC PANEL [CHEM] DAILYLAB CBC - COMP BLD CT W/AUTO DIFF [HEME] DAILYLAB 06/25/22 05:00 BMP - BASIC METABOLIC PANEL [CHEM] DAILYLAB CBC - COMP BLD CT W/AUTO DIFF [HEME] DAILYLAB Subjective - Subjective Patient Reports: Resting Comfortably, No Complaints Nursing Reports: Other (She worked alot with PT and OT) Objective Vital Signs: Vital Signs - 24 hr 06/22/22 06/22/22 06/22/22 08:30 08:45 11:33 Temperature 36.9 C Heart Rate [ Activity] Heart Rate [ 80 Brachial] Heart Rate [ Supine] Respiratory 20 Rate Blood Pressure [Activity] Blood Pressure 145/55 H [Left Brachial artery] Blood Pressure [Right Brachial artery] Blood Pressure [Sitting] Blood Pressure [Supine] O2 Saturation 89 L 93 93 O2 Saturation [ Activity] O2 Saturation [ Sitting] O2 Saturation [ Supine] If not protocol 1 1 : Oxygen Flow, liters/minute 06/22/22 06/22/22 06/22/22 13:15 13:17 15:58 Temperature 37.1 C Heart Rate [ 103 H Activity] Heart Rate [ 88 Brachial] Heart Rate [ 94 Supine] Respiratory 24 Rate Blood Pressure 179/68 H 179/68 H [Activity] Blood Pressure [Left Brachial artery] Blood Pressure 136/52 H [Right Brachial artery] Blood Pressure 153/66 H [Sitting] Blood Pressure 153/66 H 148/68 H [Supine] O2 Saturation 95 O2 Saturation [ 91 L Activity] O2 Saturation [ 93 Sitting] O2 Saturation [ 92 Supine] If not protocol 1 : Oxygen Flow, liters/minute 06/22/22 06/22/22 06/22/22 20:15 21:00 22:41 Temperature 37.0 C Heart Rate [ Activity] Heart Rate [ 86 Brachial] Heart Rate [ Supine] Respiratory 24 Rate Blood Pressure [Activity] Blood Pressure [Left Brachial artery] Blood Pressure 151/63 H [Right Brachial artery] Blood Pressure [Sitting] Blood Pressure [Supine] O2 Saturation 95 93 O2 Saturation [ Activity] O2 Saturation [ Sitting] O2 Saturation [ Supine] If not protocol 1 2 : Oxygen Flow, liters/minute 06/22/22 06/23/22 23:55 05:15 Temperature 37.1 C 36.5 C Heart Rate [ Activity] Heart Rate [ 85 81 Brachial] Heart Rate [ Supine] Respiratory 22 20 Rate Blood Pressure [Activity] Blood Pressure [Left Brachial artery] Blood Pressure 157/52 H 153/70 H [Right Brachial artery] Blood Pressure [Sitting] Blood Pressure [Supine] O2 Saturation 93 93 O2 Saturation [ Activity] O2 Saturation [ Sitting] O2 Saturation [ Supine] If not protocol 1 0.5 : Oxygen Flow, liters/minute Oxygen O2 Source Nasal cannula Oxygen Flow Rate 2 I&O (Last 24 Hrs): Intake and Output Totals x24h 06/21/22 06/22/22 06/23/22 23:59 23:59 23:59 Intake Total 742.513 1084 150 Output Total 625 825 200 Balance -9.000 2371 -50 General: Alert, No acute distress, Other (Obese WF) HEENT: Mucous membr. moist/pink Neck: Supple, Other (Cannot eval JVP due to obese neck) Neuro: Alert, Non Focal, Other (Poor memory) Cardiovascular: Regular rate Respiratory: No respiratory distress Abdomen: Soft, Other (Obese with pannus) Extremities: No clubbing, No edema - Results Results: Laboratory Results WBC 10.2 x10^3/uL (4.8-10.8) 06/23/22 05:40 RBC 3.21 10^6/uL (4.20-5.40) L 06/23/22 05:40 Hgb 10.3 g/dL (12.0-16.0) L 06/23/22 05:40 Hct 32.1 % (37.0-47.0) L 06/23/22 05:40 MCV 100.0 fL (81.0-99.0) H 06/23/22 05:40 MCH 32.1 pg (27.0-31.0) H 06/23/22 05:40 MCHC 32.1 g/dL (32.0-36.0) 06/23/22 05:40 RDW 13.2 % (12.0-15.0) 06/23/22 05:40 Plt Count 142 10^3/uL (130-450) 06/23/22 05:40 MPV 10.1 fL (7.9-10.8) 06/23/22 05:40 Neut # (Auto) 8.0 10^3/uL (1.5-6.6) H 06/23/22 05:40 Lymph # (Auto) 1.3 10^3/uL (1.5-3.5) L 06/23/22 05:40 [place] # (Auto) 0.7 10^3/uL (0.0-1.0) 06/23/22 05:40 Eos # (Auto) 0.2 10^3/uL (0.0-0.7) 06/23/22 05:40 Baso # (Auto) 0.0 10^3/uL (0.0-0.1) 06/23/22 05:40 Absolute Nucleated RBC 0.00 x10^3/uL 06/23/22 05:40 Nucleated RBC % 0.0 /100WBC 06/23/22 05:40 Sodium 136 mmol/L (135-145) 06/23/22 05:40 Potassium 3.6 mmol/L (3.5-5.0) 06/23/22 05:40 Chloride 103 mmol/L (101-111) 06/23/22 05:40 Carbon Dioxide 27 mmol/L (21-32) 06/23/22 05:40 Anion Gap 6.0 (6-13) 06/23/22 05:40 BUN 14 mg/dL (6-20) 06/23/22 05:40 Creatinine 0.6 mg/dL (0.4-1.0) 06/23/22 05:40 Estimated GFR (MDRD) 94 (>89) 06/23/22 05:40 Glucose 301 mg/dL (70-100) H 06/23/22 05:40 Estimat Average Glucose 214 mg/dL (70-100) H 06/22/22 06:06 Hemoglobin A1c % 9.1 % (4.27-6.07) H 06/22/22 06:06 Calcium 8.7 mg/dL (8.5-10.3) 06/23/22 05:40 Magnesium 1.9 mg/dL (1.7-2.8) 06/22/22 06:06 Total Bilirubin 1.2 mg/dL (0.2-1.0) H 06/21/22 05:40 AST 19 IU/L (10-42) 06/21/22 05:40 ALT 16 IU/L (10-60) 06/21/22 05:40 Alkaline Phosphatase 106 IU/L (42-121) 06/21/22 05:40 Total Protein 6.6 g/dL (6.7-8.2) L 06/21/22 05:40 Albumin 3.7 g/dL (3.2-5.5) 06/21/22 05:40 Globulin 2.9 g/dL (2.1-4.2) 06/21/22 05:40 Albumin/Globulin Ratio 1.3 (1.0-2.2) 06/21/22 05:40 Lipase 40 U/L (22-51) 06/21/22 05:40 Urine Color YELLOW 06/21/22 21:30 Urine Clarity CLOUDY (CLEAR) 06/21/22 21:30 Urine pH 6.0 PH (5.0-7.5) 06/21/22 21:30 Ur Specific [place] >=1.030 (1.002-1.030) H 06/21/22 21:30 Urine Protein 30 mg/dL (NEGATIVE) H 06/21/22 21:30 Urine Glucose (UA) 500 mg/dL (NEGATIVE) H 06/21/22 21:30 Urine Ketones NEGATIVE mg/dL (NEGATIVE) 06/21/22 21:30 Urine Occult Blood SMALL (NEGATIVE) H 06/21/22 21:30 Urine Nitrite NEGATIVE (NEGATIVE) 06/21/22 21:30 Urine Bilirubin NEGATIVE (NEGATIVE) 06/21/22 21:30 Urine Urobilinogen 1 (NORMAL) E.U./dL (NORMAL) 06/21/22 21:30 Ur Leukocyte Esterase TRACE (NEGATIVE) H 06/21/22 21:30 Urine RBC 0-5 /HPF (0-5) 06/21/22 21:30 Urine WBC >25 /HPF (0-5) H 06/21/22 21:30 Ur Squamous Epith Cells NONE SEEN (<= Few) 06/21/22 21:30 Urine Bacteria Few /HPF (None Seen) 06/21/22 21:30 Urine Yeast PRESENT 06/21/22 21:30 Ur Microscopic Review INDICATED 06/21/22 08:50 Urine Culture Comments INDICATED 06/21/22 21:30 SARS-CoV-2 (PCR) NOT DETECTED 06/21/22 06:50
[2022-06-23] MEDS ORDERED: INSULIN LISPRO 300 UNIT/3 ML PEN SUBQ SCH ×2 (08:34→12:00)
[2022-06-23] MEDS: ENOXAPARIN 40 MG/0.4 ML SYRINGE SUBQ SCH (08:51)
[2022-06-23] MEDS: NYSTATIN POWDER 15 GM TOP SCH ×2 (08:51→21:00)
[2022-06-23] MEDS: polyethylene glycoL 3350 17 GM PACKET PO SCH (08:51)
[2022-06-23] MEDS: HYDROCORTISONE 1% CREAM 28 GM TUBE TOP SCH ×2 (08:52→21:00)
[2022-06-23] MEDS: DOCUSATE SODIUM 250 MG CAPSULE PO SCH (08:52)
[2022-06-23] MEDS: PARoxetine 10 MG TABLET PO SCH (08:52)
[2022-06-23] MEDS: CELECOXIB 100 MG CAPSULE PO SCH ×2 (08:52→20:58)
[2022-06-23] MEDS: LOSARTAN 50 MG TABLET PO SCH (08:52)
[2022-06-23] MEDS: SENNA 8.6 MG TABLET PO SCH (08:52)
[2022-06-23] MEDS: ASPIRIN EC 81 MG TABLET PO SCH ×2 (08:53→20:57)
[2022-06-23] MEDS ORDERED: glipiZIDE 5 MG TABLET PO SCH (09:00)
[2022-06-23] MEDS: oxyCODONE 5 MG TABLET PO PRN (12:08)
[2022-06-23] MEDS: ACETAMINOPHEN 325 MG TABLET PO PRN (12:08)
[2022-06-23] MEDS: INSULIN LISPRO 300 UNIT/3 ML PEN SUBQ SCH ×3 (12:08→20:59)
[2022-06-23] MEDS: GLIPIZIDE 10 MG PO SCH (17:01)
[2022-06-23] MEDS: ATORVASTATIN 10 MG TABLET PO SCH (20:57)
[2022-06-23] MEDS: FLUCONAZOLE 100 MG TABLET PO SCH (20:58)
[2022-06-24] MEDS: SODIUM CHLORIDE FLUSH 0.9% 10 ML SYRINGE IVP SCH ×3 (04:39→17:03)
[2022-06-24] MEDS: ACETAMINOPHEN 500 MG TABLET PO SCH ×3 (05:00→21:13)
[2022-06-24 05:40] LABS: BASOPHILS # (AUTO) 0.1 10^3/uL (0.0-0.1); BASOPHILS % (AUTO) 0.5 %; CALCIUM 8.7 mg/dL (8.5-10.3); CREATININE 0.6 mg/dL (0.4-1.0); EOSINOPHILS # (AUTO) 0.2 10^3/uL (0.0-0.7); EOSINOPHILS % (AUTO) 2.4 %; HGB - HEMOGLOBIN 10.2 g/dL (12.0-16.0); LYMPHOCYTES # (AUTO) 1.3 10^3/uL (1.5-3.5); LYMPHOCYTES % (AUTO) 13.8 %; MEAN CORPUSCULAR HEMOGLOBIN 31.9 pg (27.0-31.0); MEAN CORPUSCULAR HGB CONC 31.9 g/dL (32.0-36.0); MEAN PLATELET VOLUME 10.2 fL (7.9-10.8); MONOCYTES # (AUTO) 0.7 10^3/uL (0.0-1.0); MONOCYTES % (AUTO) 7.5 %; NEUTROPHILS # (AUTO) 6.9 10^3/uL (1.5-6.6); NEUTROPHILS % (AUTO) 74.6 %; PLT - PLATELET COUNT 159 10^3/uL (130-450); POTASSIUM 3.6 mmol/L (3.5-5.0); RED CELL DISTRIBUTION WIDTH 13.2 % (12.0-15.0); WHITE BLOOD COUNT 9.2 x10^3/uL (4.8-10.8)
[2022-06-24] MEDS: INSULIN LISPRO 300 UNIT/3 ML PEN SUBQ SCH ×4 (08:18→21:14)
[2022-06-24] MEDS: GLIPIZIDE 10 MG PO SCH ×2 (08:20→17:03)
[2022-06-24] MEDS: CELECOXIB 100 MG CAPSULE PO SCH ×2 (08:20→21:13)
[2022-06-24] MEDS: ASPIRIN EC 81 MG TABLET PO SCH ×2 (08:20→21:13)
[2022-06-24] MEDS: SENNA 8.6 MG TABLET PO SCH (08:20)
[2022-06-24] MEDS: DOCUSATE SODIUM 250 MG CAPSULE PO SCH (08:21)
[2022-06-24] MEDS: LOSARTAN 50 MG TABLET PO SCH (08:21)
[2022-06-24] MEDS: ENOXAPARIN 40 MG/0.4 ML SYRINGE SUBQ SCH (08:22)
[2022-06-24] MEDS: FLUCONAZOLE 100 MG TABLET PO SCH ×2 (08:22→21:13)
[2022-06-24] MEDS: polyethylene glycoL 3350 17 GM PACKET PO SCH (08:22)
[2022-06-24] MEDS: NYSTATIN POWDER 15 GM TOP SCH ×2 (08:22→21:15)
[2022-06-24] MEDS: HYDROCORTISONE 1% CREAM 28 GM TUBE TOP SCH ×2 (08:22→21:14)
[2022-06-24] MEDS: PARoxetine 10 MG TABLET PO SCH (08:26)
--- NOTE | 2022-06-24 18:05 | PROVIDER PROGRESS NOTE ---
Assessment/Plan - Problem List (1) Hip fracture, left Assessment/Plan: POD #3 of successful hip surgery by Dr Vazquez. her pain is under control with meds. PT and OT evaluations and OOB started and she is participating. The plan is for more rehab at a SNF after DCh. I updated the who was at bedside today. (2) Orthostatic hypotension Conclusion/Plan: We checked orthostatic vital signs with PT/OT and they are very abnormal: HR rises 20-50 points, syst BP drops 20 mmHg. She was on Lasix at home which has not yet been started here. She was on valsartan at home and yesterday started a low-dose of losartan. She was on amlodipine at home which was not restarted here yet She is not yet ready for discharge. (3) Fall at home Conclusion/Plan: Etiology could have been orthostasis from volume depletion or a potential i nfection, given the urinary frequency complaint. Another possibility, is that she has a L knee that is contracted (reported after surgery by Orthopedist), and maybe her abnormal gait caused the fall. We checked orthostatic vital signs with PT/OT and they are abnormal. meds to be further adjusted today. A repeat work-up of the urine showed no UTI She will continue to work with PT today (4) Wrist fracture, left Conclusion/Plan: POD #3 after wrist was set by Ortho in OR, while under general anesthesia for the hip. Continue pain meds prn Management as per Orthopedics (5) DM type 2 (diabetes mellitus, type 2) Conclusion/Plan: The patient was only on glipizide for diabetes treatment. The makes all the meals and he admitted to me at admission, that she is on no diabetic diet whatsoever. He is the cook and "only opens canned food and warms it and heats up frozen dinners". The patient claimed she checks her fingerstick glucose checks twice a day and the said she has not done that in 2 years. Yest naren, he reported they eat donuts and Twinkies and tjhought the Glipizide would "jacki care of the Diabetes". Today we learned from our [employer] Worker that they both drink "sugar water" all day, for hydration. We asked for PCP records to see why prior Metformin was stopped. We received records from [facility]. Her PCP is now Dr. Jenae Armas. There is no information in those records on why Metformin was stopped and Glipizide started. Also records state the pt told the PCP she checks her fingerstick glu twice a day and more lancets were ordered. There was nothing documented about discussing management or a diabetic diet. Her A1c came back at 9.1, but adm glu was 400. We ordered Nutrition consult for Diabetic education. Son wanted to learn how to help. Continue with a diabetic diet while here, fingerstick checks and sliding scale insulin coverage. After discussion with pharmacy, and her glipizide was increased to twice daily. Despite this her night glucose was 400 and morning 300. Because of her high glu numbers and her new rash (see #10), will stop hospital formulary glipizide and use sliding scale insulin coverage, and then Pt's own med Glipizide bid. (6) Dementia Conclusion/Plan: The patient has a poor memory which was evident during our first meeting. Her medication list showed that she was on Aricept, but the said that Aricept was stopped for unknown reason. Also that she has a "memory doctor" We asked for PCP records to see why Aricept was stopped. Her Neurologist is Dr Camacho Kellogg and her Aricept was stopped because it caused bradycardia. She was offered to start Memantine, but she and her declined it. Consult and for assistance going forward. (7) Hx Asthma Her admission H&P said that she has a history of COPD. The son, at bedside today, said she never had COPD, was never a smoker. Son and said it was Hx of Asthma. She used to take inhalers when she had "wheezing attacks" according to the . The also reported that after they got rid of all pets, she has had no more wheezing attacks. Her O2 sats have dropped to 88% and because she is not a COPD-er, we will continue with supplemental oxygen until sats are greater than 90 to 92%. (8) Hx lung cancer Per the son, a lobe was removed. Per the , only the mass in the lung was removed. We asked for PCP records and read that she had a wedge lung resection. 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 Records also show that she had breat CA and got Tamoxifen and radiation after lumpectomy. 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 (9) Yeast UTI Conclusion/Plan: Resolved, if she indeed had it. At admission, the patient reported seeing blood in her urine recently (although, given her dementia, this report is now in question) The ED provider got a history from the patient's of urinary frequency and urgency. Her initial UA was abnormal but had many squamous cells. We have repeated her UA and the urine culture grew yeast. Because of her DM and her skin fungus, will treat a yeast UTI with Fluconazole 200 mg bid for 14 days. (10) Rash Conclusion/Plan: Improved Started on POD #1 with a rash on her upper abdomen. On POD #2, the rash extended down the entire abdomen. It was raised and dark pink. It is nonpruritic. RN spoke to pharmacist and they reviewed what her new meds were: She received several including 1 antibiotic dose, she is on new aspirin twice daily, she received hospital formulary glipizide tablets. We stopped the glipizide. Will order patient's own med glipizide. We will use sliding scale insulin coverage for her diabetic management. Will order topical hydrocortisone cream for the rash. No Benadryl, since she has no pruritus. - Current Meds Current Meds: Current Medications Generic Name Dose Route Start Last Admin Trade Name Janny PRN Reason Stop Dose Admin Acetaminophen 650 mg 06/21/22 10:48 06/22/22 16:36 Acetaminophen 325 Mg Tablet PO 650 mg Q4HR PRN Administration Pain 1 to 4, or Fever Acetaminophen 1,000 mg 06/21/22 22:00 06/24/22 14:44 Acetaminophen 500 Mg Tablet PO 1,000 mg TID LOIS Administration Aspirin 81 mg 06/22/22 09:00 06/24/22 08:20 Aspirin Ec 81 Mg Tablet PO 81 mg BID LOIS Administration Atorvastatin Calcium 20 mg 06/22/22 21:00 06/23/22 20:57 Atorvastatin 10 Mg Tablet PO 20 mg HS LOIS Administration Celecoxib 200 mg 06/21/22 21:00 06/24/22 08:20 Celecoxib 100 Mg Capsule PO 200 mg BID LOIS Administration Docusate Sodium 250 - 500 mg 06/23/22 09:00 06/24/22 08:21 Docusate Sodium 250 Mg Capsule PO 250 mg DAILY LOIS Administration Enoxaparin Sodium 40 mg 06/22/22 09:00 06/24/22 08:22 Enoxaparin 40 Mg/0.4 Ml Syringe SUBQ 40 mg DAILY LOIS Administration Fluconazole 200 mg 06/23/22 21:00 06/24/22 08:22 Fluconazole 100 Mg Tablet PO 200 mg BID LOIS Administration Hydrocortisone 1 applic 06/23/22 09:00 06/24/22 08:22 Hydrocortisone 1% Cream 28 Gm Tube TOP 1 applic BID LOIS Administration Insulin Human Lispro 2 - 10 unit 06/23/22 12:00 06/24/22 17:02 Insulin Lispro 300 Unit/3 Ml Pen SUBQ 8 unit 0800,1200,1700,2100 LOIS Administration Protocol Losartan Potassium 50 mg 06/23/22 09:00 06/24/22 08:21 Losartan 50 Mg Tablet PO 50 mg DAILY LOIS Administration Nystatin 1 applic 06/21/22 21:00 06/24/22 08:22 Nystatin Powder 15 Gm TOP 1 applic BID LOIS Administration Oxycodone HCl 5 mg 06/21/22 17:45 06/23/22 12:08 Oxycodone 5 Mg Tablet PO 5 mg Q6HR PRN Administration PAIN Paroxetine HCl 20 mg 06/23/22 09:00 06/24/22 08:26 Paroxetine 10 Mg Tablet PO 20 mg DAILY LOIS Administration Patient Own Med ( 1 each 06/23/22 17:00 06/24/22 17:03 Glipizide 10mg) PO 1 each BIDWM LOIS Administration Polyethylene Glycol 17 gm 06/23/22 09:00 06/24/22 08:22 Polyethylene Glycol 3350 17 Gm Packet PO 17 gm DAILY LOIS Administration Senna 8.6 - 17.2 mg 06/23/22 09:00 06/24/22 08:20 Senna 8.6 Mg Tablet PO 8.6 mg DAILY LOIS Administration Sodium Chloride 10 ml 06/21/22 10:48 06/22/22 16:19 Sodium Chloride Flush 0.9% 10 Ml Syringe IVP 10 ml PRN PRN Administration NEEDED PER PROVIDER ORDERS Sodium Chloride 10 ml 06/21/22 17:00 06/24/22 17:03 Sodium Chloride Flush 0.9% 10 Ml Syringe IVP 10 ml 0100,0900,1700 LOIS Administration - Lab Result Fish Bone Diagrams: 06/24/22 04:53 06/24/22 04:53 - Additional Planning My Orders: My Active Orders 06/23/22 17:00 Patient Own Med [Patient Own Medication] 1 each PO BIDWM 06/23/22 21:00 Fluconazole [Diflucan] 200 mg PO BID 06/25/22 05:00 BMP - BASIC METABOLIC PANEL [CHEM] DAILYLAB CBC - COMP BLD CT W/AUTO DIFF [HEME] DAILYLAB Subjective - Subjective Patient Reports: Feeling Better, Resting Comfortably, No Complaints Objective Vital Signs: Vital Signs - 24 hr 06/23/22 06/24/22 06/24/22 20:54 00:00 07:50 Temperature 37.2 C 37 C 36.6 C Heart Rate [ 78 82 86 Brachial] Respiratory 18 18 22 Rate Blood Pressure 143/68 H 131/83 H 161/70 H [Right Brachial artery] O2 Saturation 92 92 94 06/24/22 16:00 Temperature 37.1 C Heart Rate [ 73 Brachial] Respiratory 16 Rate Blood Pressure 157/66 H [Right Brachial artery] O2 Saturation 94 Oxygen O2 Source Room air Oxygen Flow Rate 2 I&O (Last 24 Hrs): Intake and Output Totals x24h 06/22/22 06/23/22 06/24/22 23:59 23:59 23:59 Intake Total 3196 1150 1050 Output Total 825 800 450 Balance 2371 350 600 General: Alert HEENT: Atraumatic, Mucous membr. moist/pink Neck: Supple, Other (Cannot evaluate JVP due to morbid obese neck) Neuro: Alert, Disoriented, Non Focal Cardiovascular: Regular rate, No murmurs Respiratory: No respiratory distress, Breath sounds nml Abdomen: Normal bowel sounds, Soft, Other (Obese with pannus) Extremities: No clubbing, No edema - Results Results: Laboratory Results WBC 9.2 x10^3/uL (4.8-10.8) 06/24/22 04:53 RBC 3.20 10^6/uL (4.20-5.40) L 06/24/22 04:53 Hgb 10.2 g/dL (12.0-16.0) L 06/24/22 04:53 Hct 32.0 % (37.0-47.0) L 06/24/22 04:53 MCV 100.0 fL (81.0-99.0) H 06/24/22 04:53 MCH 31.9 pg (27.0-31.0) H 06/24/22 04:53 MCHC 31.9 g/dL (32.0-36.0) L 06/24/22 04:53 RDW 13.2 % (12.0-15.0) 06/24/22 04:53 Plt Count 159 10^3/uL (130-450) 06/24/22 04:53 MPV 10.2 fL (7.9-10.8) 06/24/22 04:53 Neut # (Auto) 6.9 10^3/uL (1.5-6.6) H 06/24/22 04:53 Lymph # (Auto) 1.3 10^3/uL (1.5-3.5) L 06/24/22 04:53 [place] # (Auto) 0.7 10^3/uL (0.0-1.0) 06/24/22 04:53 Eos # (Auto) 0.2 10^3/uL (0.0-0.7) 06/24/22 04:53 Baso # (Auto) 0.1 10^3/uL (0.0-0.1) 06/24/22 04:53 Absolute Nucleated RBC 0.00 x10^3/uL 06/24/22 04:53 Nucleated RBC % 0.0 /100WBC 06/24/22 04:53 Sodium 139 mmol/L (135-145) 06/24/22 04:53 Potassium 3.6 mmol/L (3.5-5.0) 06/24/22 04:53 Chloride 103 mmol/L (101-111) 06/24/22 04:53 Carbon Dioxide 30 mmol/L (21-32) 06/24/22 04:53 Anion Gap 6.0 (6-13) 06/24/22 04:53 BUN 17 mg/dL (6-20) 06/24/22 04:53 Creatinine 0.6 mg/dL (0.4-1.0) 06/24/22 04:53 Estimated GFR (MDRD) 94 (>89) 06/24/22 04:53 Glucose 226 mg/dL (70-100) H 06/24/22 04:53 Estimat Average Glucose 214 mg/dL (70-100) H 06/22/22 06:06 Hemoglobin A1c % 9.1 % (4.27-6.07) H 06/22/22 06:06 Calcium 8.7 mg/dL (8.5-10.3) 06/24/22 04:53 Magnesium 1.9 mg/dL (1.7-2.8) 06/22/22 06:06 Total Bilirubin 1.2 mg/dL (0.2-1.0) H 06/21/22 05:40 AST 19 IU/L (10-42) 06/21/22 05:40 ALT 16 IU/L (10-60) 06/21/22 05:40 Alkaline Phosphatase 106 IU/L (42-121) 06/21/22 05:40 Total Protein 6.6 g/dL (6.7-8.2) L 06/21/22 05:40 Albumin 3.7 g/dL (3.2-5.5) 06/21/22 05:40 Globulin 2.9 g/dL (2.1-4.2) 06/21/22 05:40 Albumin/Globulin Ratio 1.3 (1.0-2.2) 06/21/22 05:40 Lipase 40 U/L (22-51) 06/21/22 05:40 Urine Color YELLOW 06/21/22 21:30 Urine Clarity CLOUDY (CLEAR) 06/21/22 21:30 Urine pH 6.0 PH (5.0-7.5) 06/21/22 21:30 Ur Specific [place] >=1.030 (1.002-1.030) H 06/21/22 21:30 Urine Protein 30 mg/dL (NEGATIVE) H 06/21/22 21:30 Urine Glucose (UA) 500 mg/dL (NEGATIVE) H 06/21/22 21:30 Urine Ketones NEGATIVE mg/dL (NEGATIVE) 06/21/22 21:30 Urine Occult Blood SMALL (NEGATIVE) H 06/21/22 21:30 Urine Nitrite NEGATIVE (NEGATIVE) 06/21/22 21:30 Urine Bilirubin NEGATIVE (NEGATIVE) 06/21/22 21:30 Urine Urobilinogen 1 (NORMAL) E.U./dL (NORMAL) 06/21/22 21:30 Ur Leukocyte Esterase TRACE (NEGATIVE) H 06/21/22 21:30 Urine RBC 0-5 /HPF (0-5) 06/21/22 21:30 Urine WBC >25 /HPF (0-5) H 06/21/22 21:30 Ur Squamous Epith Cells NONE SEEN (<= Few) 06/21/22 21:30 Urine Bacteria Few /HPF (None Seen) 06/21/22 21:30 Urine Yeast PRESENT 06/21/22 21:30 Ur Microscopic Review INDICATED 06/21/22 08:50 Urine Culture Comments INDICATED 06/21/22 21:30 SARS-CoV-2 (PCR) NOT DETECTED 06/21/22 06:50
[2022-06-24] MEDS: ATORVASTATIN 10 MG TABLET PO SCH (21:13)
[2022-06-25] MEDS: SODIUM CHLORIDE FLUSH 0.9% 10 ML SYRINGE IVP SCH ×3 (01:05→17:34)
[2022-06-25] MEDS: ACETAMINOPHEN 500 MG TABLET PO SCH ×3 (05:26→20:43)
[2022-06-25 06:23] LABS: BASOPHILS % (AUTO) 0.4 %; EOSINOPHILS # (AUTO) 0.2 10^3/uL (0.0-0.7); EOSINOPHILS % (AUTO) 2.7 %; HCT - HEMATOCRIT 33.1 % (37.0-47.0); HGB - HEMOGLOBIN 10.3 g/dL (12.0-16.0); LYMPHOCYTES # (AUTO) 1.6 10^3/uL (1.5-3.5); LYMPHOCYTES % (AUTO) 22.4 %; MEAN CORPUSCULAR HEMOGLOBIN 31.3 pg (27.0-31.0); MEAN CORPUSCULAR HGB CONC 31.1 g/dL (32.0-36.0); MEAN CORPUSCULAR VOLUME 100.6 fL (81.0-99.0); MEAN PLATELET VOLUME 9.8 fL (7.9-10.8); MONOCYTES # (AUTO) 0.6 10^3/uL (0.0-1.0); MONOCYTES % (AUTO) 8.5 %; NEUTROPHILS # (AUTO) 4.5 10^3/uL (1.5-6.6); NEUTROPHILS % (AUTO) 64.4 %; PLT - PLATELET COUNT 172 10^3/uL (130-450); RED BLOOD COUNT 3.29 10^6/uL (4.20-5.40); RED CELL DISTRIBUTION WIDTH 13.4 % (12.0-15.0); WHITE BLOOD COUNT 7.1 x10^3/uL (4.8-10.8)
[2022-06-25 06:31] LABS: CALCIUM 8.8 mg/dL (8.5-10.3); CREATININE 0.4 mg/dL (0.4-1.0); POTASSIUM 3.7 mmol/L (3.5-5.0)
[2022-06-25] MEDS: INSULIN LISPRO 300 UNIT/3 ML PEN SUBQ SCH ×4 (07:49→20:44)
[2022-06-25] MEDS: GLIPIZIDE 10 MG PO SCH ×2 (07:51→17:32)
[2022-06-25] MEDS: FLUCONAZOLE 100 MG TABLET PO SCH ×2 (10:00→20:43)
[2022-06-25] MEDS: ASPIRIN EC 81 MG TABLET PO SCH ×2 (10:00→20:44)
[2022-06-25] MEDS: SENNA 8.6 MG TABLET PO SCH (10:01)
[2022-06-25] MEDS: polyethylene glycoL 3350 17 GM PACKET PO SCH (10:01)
[2022-06-25] MEDS: CELECOXIB 100 MG CAPSULE PO SCH ×2 (10:01→20:43)
[2022-06-25] MEDS: DOCUSATE SODIUM 250 MG CAPSULE PO SCH (10:01)
[2022-06-25] MEDS: ENOXAPARIN 40 MG/0.4 ML SYRINGE SUBQ SCH (10:01)
[2022-06-25] MEDS: NYSTATIN POWDER 15 GM TOP SCH ×2 (10:02→20:45)
[2022-06-25] MEDS: LOSARTAN 50 MG TABLET PO SCH (10:02)
[2022-06-25] MEDS ORDERED: SODIUM CHLORIDE 0.9% 500 ML IV ONE (10:39)
--- NOTE | 2022-06-25 10:42 | PROVIDER PROGRESS NOTE ---
Assessment/Plan - Problem List (1) Hip fracture, left Assessment/Plan: POD #4 of successful hip surgery by Dr Vazquez. her pain is under control with meds. PT and OT evaluations and OOB started and she is participating. The plan is for more rehab at a SNF after [facility]Ch. Orthopedics wrote in their note today: Mepelex dressing can remain in place for about a week postoperatively. No need for suture removal. (2) Orthostatic hypotension Conclusion/Plan: We are checking orthostatic vital signs and they are very abnormal: today supine syst BP 173, and standing syst BP 115. She was on Lasix at home which has not yet been started here. She was on valsartan at home and yesterday we started a low-dose of losartan. She was on amlodipine at home which was not restarted here yet. We will give a 500 cc saline bolus today. Will adjust her BP meds to restart Amlodipine at 2.5 mg, and give at at bedtime when she will be supine all night (3) Supine HTN Conclusion/Plan: This patient carries a diagnosis of HTN and at home she was on valsartan and amlodipine. Here we started a low dose of Losartan yesterday Here we are seeing supine hypertension, systolic BP 170s, but she also has severe orthostasis. Will further adjust her BP meds to start Amlodipine 2.5mg at at bedtime, before she will be supine thru the night. (4) Fall at home Conclusion/Plan: Etiology could have been orthostasis from volume depletion or a potential infection, given the urinary frequency complaint. Another possibility, is that, because she has a L knee that is contracted (reported after surgery by Orthopedist), maybe her abnormal gait caused the fall. We checked orthostatic vital signs with PT/OT and they are abnormal. Meds to be further adjusted today. She is not yet ready for discharge. PT to continue post-hip surg. (5) Wrist fracture, left Conclusion/Plan: POD #4 after wrist was set by Ortho in OR, while under general anesthesia for the hip. Continue pain meds prn Orthopedics wrote in their note today: Left wrist Colles' fracture will likely need a cast. This may need to be done in the hospital prior to discharge to a shelter facility (6) DM type 2 (diabetes mellitus, type 2) Conclusion/Plan: The patient was only on glipizide for diabetes treatment. The makes all the meals and he admitted to me at admission, that she is on no diabetic diet whatsoever. He is the cook and "only opens canned food and warms it and heats up frozen dinners". The patient claimed she checks her fingerstick glucose checks twice a day and the said she has not done that in 2 years. Yesterday, he reported they eat donuts and Twinkies and tjhought the Glipizide would "take care of the Diabetes". Today we learned from our Finish Repair Worker that they both drink "sugar water" all day, for hydration. We asked for PCP records to see why prior Metformin was stopped. We received records from [facility]. Her PCP is now Dr. Jenae Armas. There is no information in those records on why Metformin was stopped and Glipizide started. Also records state the pt told the PCP she checks her fingerstick glu twice a day and more lancets were ordered. There was nothing documented about discussing management or a diabetic diet. Her A1c came back at 9.1, but adm glu was 400. We ordered Nutrition consult for Diabetic education. Son wanted to learn how to help. Continue with a diabetic diet while here, fingerstick checks and sliding scale insulin coverage. Glipizide was increased to bid. (7) Dementia Conclusion/Plan: The patient has a poor memory which was evident during our first meeting. Her medication list showed that she was on Aricept, but the said that Aricept was stopped for unknown reason. Also that she has a "memory doctor" We asked for PCP records to see why Aricept was stopped. Her Neurologist is Dr Camacho Kellogg and her Aricept was stopped because it caused bradycardia. She was offered to start Memantine, but she and her declined it. Consult and for assistance going forward. (8) Hx Asthma Her admission H&P said that she has a history of COPD. The son, at bedside today, said she never had COPD, was never a smoker. Son and said it was Hx of Asthma. She used to take inhalers when she had "wheezing attacks" according to the . The also reported that after they got rid of all pets, she has had no more wheezing attacks. Her O2 sats have dropped to 88% and because she is not a COPD-er, we will continue with supplemental oxygen until sats are greater than 90 to 92%. (9) Hx lung cancer Per the son, a lobe was removed. Per the , only the mass in the lung was removed. We asked for PCP records and read that she had a wedge lung resection. She has a Head Charrer who follows her. Records also show that she had breat CA and got Tamoxifen and radiation after lumpectomy. She has also had many skin cancers removed: Squamous cell and Melanomas. (10) Yeast UTI Conclusion/Plan: Resolved, if she indeed had it. At admission, the patient reported seeing blood in her urine recently (although, given her dementia, this report is now in question) The ED provider got a history from the patient's of urinary frequency and urgency. Her initial UA was abnormal but had many squamous cells. We have repeated her UA and the urine culture grew yeast. Because of her DM and her skin fungus, we started Fluconazole 200 mg bid for 14 days, to treat a yeast UTI. (11) Rash Conclusion/Plan: Improved Started on POD #1 with a rash on her upper abdomen. On POD #2, the rash extend ed down the entire abdomen. It was raised and dark pink. It is nonpruritic. RN spoke to pharmacist and they reviewed what her new meds were: She received several including 1 antibiotic dose, she is on new aspirin twice daily, she received hospital formulary glipizide tablets. We stopped the glipizide. Will order patient's own med glipizide. We will use sliding scale insulin coverage for her diabetic management. Will order topical hydrocortisone cream for the rash. No Benadryl, since she has no pruritus.- Discharge likely to a shelter facility, social work is working with the family to coordinate a safe discharge plan - Current Meds Current Meds: Current Medications Generic Name Dose Route Start Last Admin Trade Name Juan Ramonq PRN Reason Stop Dose Admin Acetaminophen 1,000 mg 06/21/22 22:00 06/25/22 05:26 Acetaminophen 500 Mg Tablet PO 1,000 mg TID LOIS Administration Aspirin 81 mg 06/22/22 09:00 06/25/22 10:00 Aspirin Ec 81 Mg Tablet PO 81 mg BID LOIS Administration Atorvastatin Calcium 20 mg 06/22/22 21:00 06/24/22 21:13 Atorvastatin 10 Mg Tablet PO 20 mg HS LOIS Administration Celecoxib 200 mg 06/21/22 21:00 06/25/22 10:01 Celecoxib 100 Mg Capsule PO 200 mg BID LOIS Administration Docusate Sodium 250 - 500 mg 06/23/22 09:00 06/25/22 10:01 Docusate Sodium 250 Mg Capsule PO 250 mg DAILY LOIS Administration Enoxaparin Sodium 40 mg 06/22/22 09:00 06/25/22 10:01 Enoxaparin 40 Mg/0.4 Ml Syringe SUBQ 40 mg DAILY LOIS Administration Fluconazole 200 mg 06/23/22 21:00 06/25/22 10:00 Fluconazole 100 Mg Tablet PO 200 mg BID LOIS Administration Hydrocortisone 1 applic 06/23/22 09:00 06/24/22 21:14 Hydrocortisone 1% Cream 28 Gm Tube TOP 1 applic BID LOIS Administration Insulin Human Lispro 2 - 10 unit 06/23/22 12:00 06/25/22 07:49 Insulin Lispro 300 Unit/3 Ml Pen SUBQ 2 unit 0800,1200,1700,2100 LOIS Administration Protocol Losartan Potassium 50 mg 06/23/22 09:00 06/25/22 10:02 Losartan 50 Mg Tablet PO 50 mg DAILY LOIS Administration Nystatin 1 applic 06/21/22 21:00 06/25/22 10:02 Nystatin Powder 15 Gm TOP 1 applic BID LOIS Administration Oxycodone HCl 5 mg 06/21/22 17:45 06/23/22 12:08 Oxycodone 5 Mg Tablet PO 5 mg Q6HR PRN Administration PAIN Paroxetine HCl 20 mg 06/23/22 09:00 06/24/22 08:26 Paroxetine 10 Mg Tablet PO 20 mg DAILY LOIS Administration Patient Own Med ( 1 each 06/23/22 17:00 06/25/22 07:51 Glipizide 10mg) PO 1 each BIDWM LOIS Administration Polyethylene Glycol 17 gm 06/23/22 09:00 06/25/22 10:01 Polyethylene Glycol 3350 17 Gm Packet PO 17 gm DAILY LOIS Administration Senna 8.6 - 17.2 mg 06/23/22 09:00 06/25/22 10:01 Senna 8.6 Mg Tablet PO 8.6 mg DAILY LOIS Administration Sodium Chloride 10 ml 06/21/22 10:48 06/22/22 16:19 Sodium Chloride Flush 0.9% 10 Ml Syringe IVP 10 ml PRN PRN Administration NEEDED PER PROVIDER ORDERS Sodium Chloride 10 ml 06/21/22 17:00 06/25/22 09:00 Sodium Chloride Flush 0.9% 10 Ml Syringe IVP 10 ml 0100,0900,1700 [facility] Administration - Lab Result Fish Bone Diagrams: 06/25/22 05:51 06/25/22 05:51 - Additional Planning My Orders: My Active Orders 06/25/22 10:39 0.9% NS 500ML BOLUS X1 Sodium Chloride 0.9% [Normal Saline 0.9%] 500 ml IV ONCE 06/25/22 21:00 amLODIPine [Norvasc] 2.5 mg PO QPM Subjective - Subjective Patient Reports: Resting Comfortably, No Complaints Objective Vital Signs: Vital Signs - 24 hr 06/24/22 06/24/22 06/25/22 16:00 23:30 07:35 Temperature 37.1 C 37.0 C 36.6 C Heart Rate [ 73 79 79 Brachial] Respiratory 16 18 20 Rate Blood Pressure 157/66 H 157/70 H 167/66 H [Right Brachial artery] O2 Saturation 94 93 92 06/25/22 10:07 Temperature Heart Rate [ 84 Brachial] Respiratory Rate Blood Pressure 151/81 H [Right Brachial artery] O2 Saturation Oxygen O2 Source Room air Oxygen Flow Rate 2 I&O (Last 24 Hrs): Intake and Output Totals x24h 06/23/22 06/24/22 06/25/22 23:59 23:59 22:59 Intake Total 1150 1050 320 Output Total 507 693 1448 Balance 350 300 -980 General: Alert HEENT: Mucous membr. moist/pink Neck: Supple Neuro: Alert, Disoriented, Non Focal Cardiovascular: No murmurs Respiratory: No respiratory distress Abdomen: Soft, Other (Obese with a pannus) Extremities: Other (Trace pre-tibial edema) - Results Results: Laboratory Results WBC 7.1 x10^3/uL (4.8-10.8) 06/25/22 05:51 RBC 3.29 10^6/uL (4.20-5.40) L 06/25/22 05:51 Hgb 10.3 g/dL (12.0-16.0) L 06/25/22 05:51 Hct 33.1 % (37.0-47.0) L 06/25/22 05:51 MCV 100.6 fL (81.0-99.0) H 06/25/22 05:51 MCH 31.3 pg (27.0-31.0) H 06/25/22 05:51 MCHC 31.1 g/dL (32.0-36.0) L 06/25/22 05:51 RDW 13.4 % (12.0-15.0) 06/25/22 05:51 Plt Count 172 10^3/uL (130-450) 06/25/22 05:51 MPV 9.8 fL (7.9-10.8) 06/25/22 05:51 Neut # (Auto) 4.5 10^3/uL (1.5-6.6) 06/25/22 05:51 Lymph # (Auto) 1.6 10^3/uL (1.5-3.5) 06/25/22 05:51 [place] # (Auto) 0.6 10^3/uL (0.0-1.0) 06/25/22 05:51 Eos # (Auto) 0.2 10^3/uL (0.0-0.7) 06/25/22 05:51 Baso # (Auto) 0.0 10^3/uL (0.0-0.1) 06/25/22 05:51 Absolute Nucleated RBC 0.00 x10^3/uL 06/25/22 05:51 Nucleated RBC % 0.0 /100WBC 06/25/22 05:51 Sodium 137 mmol/L (135-145) 06/25/22 05:51 Potassium 3.7 mmol/L (3.5-5.0) 06/25/22 05:51 Chloride 106 mmol/L (101-111) 06/25/22 05:51 Carbon Dioxide 27 mmol/L (21-32) 06/25/22 05:51 Anion Gap 4.0 (6-13) L 06/25/22 05:51 BUN 12 mg/dL (6-20) 06/25/22 05:51 Creatinine 0.4 mg/dL (0.4-1.0) 06/25/22 05:51 Estimated GFR (MDRD) 151 (>89) 06/25/22 05:51 Glucose 176 mg/dL (70-100) H 06/25/22 05:51 Estimat Average Glucose 214 mg/dL (70-100) H 06/22/22 06:06 Hemoglobin A1c % 9.1 % (4.27-6.07) H 06/22/22 06:06 Calcium 8.8 mg/dL (8.5-10.3) 06/25/22 05:51 Magnesium 1.9 mg/dL (1.7-2.8) 06/22/22 06:06 Total Bilirubin 1.2 mg/dL (0.2-1.0) H 06/21/22 05:40 AST 19 IU/L (10-42) 06/21/22 05:40 ALT 16 IU/L (10-60) 06/21/22 05:40 Alkaline Phosphatase 106 IU/L (42-121) 06/21/22 05:40 Total Protein 6.6 g/dL (6.7-8.2) L 06/21/22 05:40 Albumin 3.7 g/dL (3.2-5.5) 06/21/22 05:40 Globulin 2.9 g/dL (2.1-4.2) 06/21/22 05:40 Albumin/Globulin Ratio 1.3 (1.0-2.2) 06/21/22 05:40 Lipase 40 U/L (22-51) 06/21/22 05:40 Urine Color YELLOW 06/21/22 21:30 Urine Clarity CLOUDY (CLEAR) 06/21/22 21:30 Urine pH 6.0 PH (5.0-7.5) 06/21/22 21:30 Ur Specific [place] >=1.030 (1.002-1.030) H 06/21/22 21:30 Urine Protein 30 mg/dL (NEGATIVE) H 06/21/22 21:30 Urine Glucose (UA) 500 mg/dL (NEGATIVE) H 06/21/22 21:30 Urine Ketones NEGATIVE mg/dL (NEGATIVE) 06/21/22 21:30 Urine Occult Blood SMALL (NEGATIVE) H 06/21/22 21:30 Urine Nitrite NEGATIVE (NEGATIVE) 06/21/22 21:30 Urine Bilirubin NEGATIVE (NEGATIVE) 06/21/22 21: Urine Urobilinogen 1 (NORMAL) E.U./dL (NORMAL) 06/21/22 21:30 Ur Leukocyte Esterase TRACE (NEGATIVE) H 06/21/22 21:30 Urine RBC 0-5 /HPF (0-5) 06/21/22 21:30 Urine WBC >25 /HPF (0-5) H 06/21/22 21:30 Ur Squamous Epith Cells NONE SEEN (<= Few) 06/21/22 21:30 Urine Bacteria Few /HPF (None Seen) 06/21/22 21:30 Urine Yeast PRESENT 06/21/22 21:30 Ur Microscopic Review INDICATED 06/21/22 08:50 Urine Culture Comments INDICATED 06/21/22 21:30 SARS-CoV-2 (PCR) NOT DETECTED 06/21/22 06:50
--- NOTE | 2022-06-25 10:46 | PROVIDER PROGRESS NOTE ---
Subjective - General Admit Date: 06/21/22 Procedure Date: 06/21/22 Post Op Days: 4 Procedure Performed: ORIF left hip intertrochanteric fracture, closed reduction left wrist - Review of Systems Wound/Incisions: positive: Healing well, No drainage General: positive: No symptoms All Other Systems: positive: Reviewed and negative (This was limited information because of the patient's dementia and the could not be reached.) - Other Other Information/Narrative: No chest pain, dyspnea, nausea, vomiting or fevers reported by patient Excellent appetite, states she enjoys the food here and asks what is for dinner tonight Conversant with 3 family members in the room Objective - Patient Data Vital Signs: Vital Signs x48h Temp Pulse Resp BP Pulse Ox 06/25/22 10:07 84 151/81 H 06/25/22 07:35 36.6 C 79 20 167/66 H 92 Intake & Output: Intake and Output Totals x24h 06/23/22 06/24/22 06/25/22 23:59 23:59 22:59 Intake Total 1150 1050 320 Output Total 564 001 9701 Balance 350 300 -980 - Lab Results Lab Results: 06/25/22 05:51 06/25/22 05:51 Other Lab Results: Lab Results x24hrs 06/25/22 06/25/22 Range/Units 05:51 05:51 WBC 7.1 (4.8-10.8) x10^3/uL RBC 3.29 L (4.20-5.40) 10^6/uL Hgb 10.3 L (12.0-16.0) g/dL Hct 33.1 L (37.0-47.0) % MCV 100.6 H (81.0-99.0) fL MCH 31.3 H (27.0-31.0) pg MCHC 31.1 L (32.0-36.0) g/dL RDW 13.4 (12.0-15.0) % Plt Count 172 (130-450) 10^3/uL MPV 9.8 (7.9-10.8) fL Neut # (Auto) 4.5 (1.5-6.6) 10^3/uL Lymph # (Auto) 1.6 (1.5-3.5) 10^3/uL [place] # (Auto) 0.6 (0.0-1.0) 10^3/uL Eos # (Auto) 0.2 (0.0-0.7) 10^3/uL Baso # (Auto) 0.0 (0.0-0.1) 10^3/uL Absolute Nucleated RBC 0.00 x10^3/uL Nucleated RBC % 0.0 /100WBC Sodium 137 (135-145) mmol/L Potassium 3.7 (3.5-5.0) mmol/L Chloride 106 (101-111) mmol/L Carbon Dioxide 27 (21-32) mmol/L Anion Gap 4.0 L (6-13) BUN 12 (6-20) mg/dL Creatinine 0.4 (0.4-1.0) mg/dL Estimated GFR (MDRD) 151 (>89) Glucose 176 H (70-100) mg/dL Calcium 8.8 (8.5-10.3) mg/dL - Current Medications Current Medications: Current Medications Generic Name Dose Route Start Last Admin Trade Name Juan Ramonq PRN Reason Stop Dose Admin Acetaminophen 1,000 mg 06/21/22 22:00 06/25/22 05:26 Acetaminophen 500 Mg Tablet PO 1,000 mg TID LOIS Administration Aspirin 81 mg 06/22/22 09:00 06/25/22 10:00 Aspirin Ec 81 Mg Tablet PO 81 mg BID LOIS Administration Atorvastatin Calcium 20 mg 06/22/22 21:00 06/24/22 21:13 Atorvastatin 10 Mg Tablet PO 20 mg HS LOIS Administration Celecoxib 200 mg 06/21/22 21:00 06/25/22 10:01 Celecoxib 100 Mg Capsule PO 200 mg BID LOIS Administration Docusate Sodium 250 - 500 mg 06/23/22 09:00 06/25/22 10:01 Docusate Sodium 250 Mg Capsule PO 250 mg DAILY LOIS Administration Enoxaparin Sodium 40 mg 06/22/22 09:00 06/25/22 10:01 Enoxaparin 40 Mg/0.4 Ml Syringe SUBQ 40 mg DAILY LOIS Administration Fluconazole 200 mg 06/23/22 21:00 06/25/22 10:00 Fluconazole 100 Mg Tablet PO 200 mg BID LOIS Administration Hydrocortisone 1 applic 06/23/22 09:00 06/24/22 21:14 Hydrocortisone 1% Cream 28 Gm Tube TOP 1 applic BID LOIS Administration Insulin Human Lispro 2 - 10 unit 06/23/22 12:00 06/25/22 07:49 Insulin Lispro 300 Unit/3 Ml Pen SUBQ 2 unit 0800,1200,1700,2100 LOIS Administration Protocol Losartan Potassium 50 mg 06/23/22 09:00 06/25/22 10:02 Losartan 50 Mg Tablet PO 50 mg DAILY LOIS Administration Nystatin 1 applic 06/21/22 21:00 06/25/22 10:02 Nystatin Powder 15 Gm TOP 1 applic BID LOIS Administration Oxycodone HCl 5 mg 06/21/22 17:45 06/23/22 12:08 Oxycodone 5 Mg Tablet PO 5 mg Q6HR PRN Administration PAIN Paroxetine HCl 20 mg 06/23/22 09:00 06/24/22 08:26 Paroxetine 10 Mg Tablet PO 20 mg DAILY LOIS Administration Patient Own Med ( 1 each 06/23/22 17:00 06/25/22 07:51 Glipizide 10mg) PO 1 each BIDWM LOIS Administration Polyethylene Glycol 17 gm 06/23/22 09:00 06/25/22 10:01 Polyethylene Glycol 3350 17 Gm Packet PO 17 gm DAILY LOIS Administration Senna 8.6 - 17.2 mg 06/23/22 09:00 06/25/22 10:01 Senna 8.6 Mg Tablet PO 8.6 mg DAILY LOIS Administration Sodium Chloride 10 ml 06/21/22 10:48 06/22/22 16:19 Sodium Chloride Flush 0.9% 10 Ml Syringe IVP 10 ml PRN PRN Administration NEEDED PER PROVIDER ORDERS Sodium Chloride 10 ml 06/21/22 17:00 06/25/22 09:00 Sodium Chloride Flush 0.9% 10 Ml Syringe IVP 10 ml 0100,0900,1700 LOIS Administration - Physical Exam Wound/Incisions: positive: Healing well, Dressing dry and intact, No drainage General Appearance: positive: No acute distress, Alert Skin: positive: Color nml Extremities: positive: Non-tender Neurologic/Psychiatric: positive: Oriented x3, Mood/affect nml Comments/Other: femoral and sciatic nerve function intact dressing is clean and intact, no erythema noted Alert in bed, conversant with visitors and surgical team ABX Reporting Has patient been on IV antibiotics over the past 48 hours?: No Impression/Plan - Problem List Problem List: 86-year-old female who is postop day 4 from a left hip intertrochanteric open reduction internal fixation and a closed reduction of the left wrist for a Colles' fracture. She is recovering well. She is working with physical therapy and occupational therapy. Her incision is dry and intact with a Mepelex dressing in place. Pain is appropriately controlled. Plan: - DVT prophylaxis: 81 mg of aspirin twice daily ordered by orthopedic surgery team, she is also on Lovenox per the hospitalist. We will defer to hospitalist to discontinue one of the medications as the hospitalist is the primary physician for this patient -Physical therapy and Occupational Therapy to continue working with patient. Patient needs a platform walker as she is nonweightbearing to the left wrist but is weightbearing as tolerated to the left lower extremity. - Left wrist Colles' fracture will likely need a cast. This may need to be done in the hospital prior to discharge to a prison facility - Discharge likely to a prison facility, social work is working with the family to coordinate a safe discharge plan - Mepelex dressing can remain in place for about a week postoperatively. No need for suture removal. - Pain control per hospitalist - Diet per hospitalist, patient is diabetic - Follow-up in orthopedic clinic within 2 weeks of discharge
[2022-06-25] MEDS: HYDROCORTISONE 1% CREAM 28 GM TUBE TOP SCH ×2 (11:02→20:45)
[2022-06-25] MEDS: PARoxetine 10 MG TABLET PO SCH (11:03)
[2022-06-25] MEDS: SODIUM CHLORIDE FLUSH 0.9% 10 ML SYRINGE IVP PRN ×2 (11:05→11:49)
[2022-06-25] MEDS: ATORVASTATIN 10 MG TABLET PO SCH (20:43)
[2022-06-25] MEDS: amLODIPine 5 MG TABLET PO SCH (20:43)
[2022-06-25] MEDS ORDERED: INSULIN LISPRO 300 UNIT/3 ML PEN SUBQ SCH (21:00)
[2022-06-26] MEDS: SODIUM CHLORIDE FLUSH 0.9% 10 ML SYRINGE IVP SCH ×3 (03:34→16:30)
[2022-06-26] MEDS: ACETAMINOPHEN 500 MG TABLET PO SCH ×3 (05:48→22:13)
[2022-06-26] MEDS: GLIPIZIDE 10 MG PO SCH (08:00)
[2022-06-26] MEDS: INSULIN LISPRO 300 UNIT/3 ML PEN SUBQ SCH ×5 (08:01→21:35)
[2022-06-26] MEDS: ENOXAPARIN 40 MG/0.4 ML SYRINGE SUBQ SCH (10:26)
[2022-06-26] MEDS: SODIUM CHLORIDE FLUSH 0.9% 10 ML SYRINGE IVP PRN (10:26)
[2022-06-26] MEDS: PARoxetine 10 MG TABLET PO SCH (10:26)
[2022-06-26] MEDS: FLUCONAZOLE 100 MG TABLET PO SCH ×2 (10:27→21:32)
[2022-06-26] MEDS: CELECOXIB 100 MG CAPSULE PO SCH ×2 (10:27→21:34)
[2022-06-26] MEDS: ASPIRIN EC 81 MG TABLET PO SCH ×2 (10:27→21:33)
[2022-06-26] MEDS: SENNA 8.6 MG TABLET PO SCH (10:27)
[2022-06-26] MEDS: DOCUSATE SODIUM 250 MG CAPSULE PO SCH (10:27)
[2022-06-26] MEDS: polyethylene glycoL 3350 17 GM PACKET PO SCH (10:28)
[2022-06-26] MEDS: LOSARTAN 50 MG TABLET PO SCH (10:28)
[2022-06-26] MEDS: HYDROCORTISONE 1% CREAM 28 GM TUBE TOP SCH ×2 (10:40→21:31)
[2022-06-26] MEDS: NYSTATIN POWDER 15 GM TOP SCH ×2 (10:40→21:31)
--- NOTE | 2022-06-26 13:34 | PROVIDER PROGRESS NOTE ---
Subjective - General Admit Date: 06/21/22 Procedure Date: 06/21/22 Post Op Days: 5 Procedure Performed: ORIF left hip intertrochanteric fracture, closed reduction left wrist - Review of Systems Wound/Incisions: positive: Healing well, Dressing dry and intact, No drainage General: positive: No symptoms All Other Systems: positive: Reviewed and negative (This was limited information because of the patient's dementia and the could not be reached.) - Other Other Information/Narrative: She seems to be doing very well following orthopedic injuries to left wrist and left hip. She states she has minimal pain, using Tylenol for most of her pain. She is ambulating with platform walker. She has no symptoms or signs of infection. She is sitting comfortably. Her family is here with her. Objective - Patient Data Vital Signs: Vital Signs x48h Temp Pulse Resp BP Pulse Ox 06/26/22 11:41 36.6 C 85 18 154/81 H 93 06/26/22 10:44 81 149/86 H 06/26/22 10:31 82 181/92 H 06/26/22 08:00 36.3 C L 81 18 179/81 H 93 Intake & Output: Intake and Output Totals x24h 06/25/22 06/25/22 06/26/22 00:59 23:59 23:59 Intake Total 410 Output Total 300 Balance 110 - Lab Results Lab Results: 06/25/22 05:51 06/25/22 05:51 - Current Medications Current Medications: Current Medications Generic Name Dose Route Start Last Admin Trade Name Janny PRN Reason Stop Dose Admin Acetaminophen 1,000 mg 06/21/22 22:00 06/26/22 05:48 Acetaminophen 500 Mg Tablet PO 1,000 mg TID LOIS Administration Amlodipine Besylate 2.5 mg 06/25/22 21:00 06/25/22 20:43 Amlodipine 5 Mg Tablet PO 2.5 mg QPM LOIS Administration Aspirin 81 mg 06/22/22 09:00 06/26/22 10:27 Aspirin Ec 81 Mg Tablet PO 81 mg BID LOIS Administration Atorvastatin Calcium 20 mg 06/22/22 21:00 06/25/22 20:43 Atorvastatin 10 Mg Tablet PO 20 mg HS LOIS Administration Celecoxib 200 mg 06/21/22 21:00 06/26/22 10:27 Celecoxib 100 Mg Capsule PO 200 mg BID LOIS Administration Docusate Sodium 250 - 500 mg 06/23/22 09:00 06/26/22 10:27 Docusate Sodium 250 Mg Capsule PO 250 mg DAILY LOIS Administration Enoxaparin Sodium 40 mg 06/22/22 09:00 06/26/22 10:26 Enoxaparin 40 Mg/0.4 Ml Syringe SUBQ 40 mg DAILY LOIS Administration Fluconazole 200 mg 06/23/22 21:00 06/26/22 10:27 Fluconazole 100 Mg Tablet PO 200 mg BID LOIS Administration Hydrocortisone 1 applic 06/23/22 09:00 06/26/22 10:40 Hydrocortisone 1% Cream 28 Gm Tube TOP 1 applic BID LOIS Administration Insulin Human Lispro 3 - 11 unit 06/25/22 17:21 06/26/22 11:53 Insulin Lispro 300 Unit/3 Ml Pen SUBQ 7 unit 0800,1200,1700,2100 LOIS Administration Protocol Losartan Potassium 50 mg 06/23/22 09:00 06/26/22 10:28 Losartan 50 Mg Tablet PO 50 mg DAILY LOIS Administration Nystatin 1 applic 06/21/22 21:00 06/26/22 10:40 Nystatin Powder 15 Gm TOP 1 applic BID LOIS Administration Oxycodone HCl 5 mg 06/21/22 17:45 06/23/22 12:08 Oxycodone 5 Mg Tablet PO 5 mg Q6HR PRN Administration PAIN Paroxetine HCl 20 mg 06/23/22 09:00 06/26/22 10:26 Paroxetine 10 Mg Tablet PO 20 mg DAILY LOIS Administration Patient Own Med ( 1 each 06/23/22 17:00 06/26/22 08:00 Glipizide 10mg) PO 1 each BIDWM LOIS Administration Polyethylene Glycol 17 gm 06/23/22 09:00 06/26/22 10:28 Polyethylene Glycol 3350 17 Gm Packet PO 17 gm DAILY LOIS Administration Senna 8.6 - 17.2 mg 06/23/22 09:00 06/26/22 10:27 Senna 8.6 Mg Tablet PO 8.6 mg DAILY LOIS Administration Sodium Chloride 10 ml 06/21/22 10:48 06/26/22 10:26 Sodium Chloride Flush 0.9% 10 Ml Syringe IVP 10 ml PRN PRN Administration NEEDED PER PROVIDER ORDERS Sodium Chloride 10 ml 06/21/22 17:00 06/26/22 09:00 Sodium Chloride Flush 0.9% 10 Ml Syringe IVP 10 ml 0100,0900,1700 [facility] Administration - Physical Exam Comments/Other: She is sitting comfortably in chair, alert, articulate, no acute distress. Hip incisions are clean and dry, no sign of hematoma. Neurovascular intact to left leg. Splint is intact to left wrist and forearm. Impression/Plan - Problem List Problem List: Left hip pain left distal radius fracture She is doing well with both, continue present treatment, apply cast this week to left wrist and forearm
[2022-06-26] MEDS ORDERED: metFORMIN 500 MG TABLET PO SCH ×2 (17:00)
[2022-06-26] MEDS: glipiZIDE 5 MG TABLET PO SCH (17:39)
[2022-06-26] MEDS: metFORMIN 500 MG TABLET PO SCH (17:39)
--- NOTE | 2022-06-26 18:55 | PROVIDER PROGRESS NOTE ---
Assessment/Plan - Problem List (1) Hip fracture, left Assessment/Plan: POD #5 of successful hip surgery by Dr Vazquez. Her pain is under good control with meds. PT and OT evaluations and OOB started and she is participating. The plan is for more rehab at a SNF after [facility]. Orthopedics wrote in their note yesterday: Mepelex dressing can remain in place for about a week postoperatively. No need for suture removal. (2) Orthostatic hypotension Conclusion/Plan: We are checking orthostatic vital signs and they were very abnormal: yesterday supine syst BP 173, and standing syst BP 115. She was on Lasix at home wfor leg edema hich has not yet been restarted here. She was on valsartan at home and we started a low-dose of losartan. She was on amlodipine at home which was not restarted here. We gave a 500 cc saline bolus yesterday We adjusted her BP meds to restart Amlodipine at 2.5 mg, and give it at bedtime, when she will be supine all night. Today I explained to the , son Judah and Judah's at bedside, what changes have been needed for her severe orthostasis. Also, I suspect she may need Lasix once a week, not every day, if she re-develops leg edema. The son wants to get a list of the medicines she will go to SNF on, so that he can clean out the medicine cabinet at home and just have her on the correct meds. (3) Supine HTN Conclusion/Plan: This patient carries a diagnosis of HTN and at home she was on valsartan and amlodipine. Here we started a low dose of Losartan Here we are seeing supine hypertension, systolic BP 170s, but she also has severe orthostasis. Thus we adjusted her BP meds to restart Amlodipine 2.5mg, and move it to bedtime, before she will be supine thru the night. (4) Fall at home Conclusion/Plan: Etiology could have been orthostasis from volume depletion or a potential infection, given the urinary frequency complaint. Another possibility, is that, because she has a L knee that is contracted (reported after surgery by Orthopedist), maybe her abnormal gait caused the fall. We checked orthostatic vital signs and they are abnormal. Meds to be further adjusted today. She is not yet ready for discharge. PT to continue post-hip surg. (5) Wrist fracture, left Conclusion/Plan: POD #5 after wrist was set by Ortho in OR, while under general anesthesia for the hip. Continue pain meds prn Orthopedics wrote in their note yesterday: Left wrist Colles' fracture will likely need a cast. This may need to be done in the hospital prior to discharge to a shelter facility. (6) DM type 2 (diabetes mellitus, type 2) Conclusion/Plan: The patient was only on glipizide for diabetes treatment. The makes all the meals and he admitted to me at admission, that she is on no diabetic diet whatsoever. He is the cook and "only opens canned food and warms it and heats up frozen dinners". The patient claimed she checks her fingerstick glucose checks twice a day and the said she has not done that in 2 years. He reported they eat donuts and Twinkies and thought the Glipizide would "take care of the Diabetes". We learned from our Chorus Dancer that they both drink "sugar water" all day, for hydration. We asked for PCP records to see why prior Metformin was stopped. We received records from [facility]. Her PCP is now Dr. Jenae Armas. There is no information in those records on why Metformin was stopped and Glipizide started. Also records state the pt told the PCP she checks her fingerstick glu twice a day and more lancets were ordered. There was nothing documented about discussing management or a diabetic diet. Her A1c came back at 9.1, but adm glu was 400. We ordered Nutrition consult for Diabetic education. Son wanted to learn how to help. Continue with a diabetic diet while here, fingerstick checks and sliding scale insulin coverage. Glipizide was increased from daily to bid several days ago. Today will also start Metformin once a day. (7) Dementia Conclusion/Plan: The patient has a poor memory which was evident during our first meeting. Her medication list showed that she was on Aricept, but the said that Aricept was stopped for unknown reason. Also that she has a "memory doctor" We asked for PCP records to see why Aricept was stopped. Her Neurologist is Dr Camacho Kellogg and her Aricept was stopped because it caused bradycardia. She was offered to start Memantine, but she and her declined it. Consulting SW and for assistance going forward. (8) Hx Asthma Her admission H&P said that she has a history of COPD. The son, at bedside today, said she never had COPD, was never a smoker. Son and said it was Hx of Asthma. She used to take inhalers when she had "wheezing attacks" according to the . The also reported that after they got rid of all pets, she has had no more wheezing attacks. (9) Hx lung cancer Per the son, a lobe was removed. Per the , only the mass in the lung was removed. We asked for PCP records and read that she had a wedge lung resection. 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 Records also show that she had breast CA and got Tamoxifen and radiation after lumpectomy. She has also had many skin cancers removed: Squamous cell and Melanomas. (10) Yeast UTI Conclusion/Plan: Resolved, if she indeed had it. At admission, the patient reported seeing blood in her urine recently (although, given her dementia, this report is now in question) The ED provider got a history from the patient's of urinary frequency and urgency. Her initial UA was abnormal but had many squamous cells. We have repeated her UA and the urine culture grew yeast. Because of her DM and her skin fungus, we started Fluconazole 200 mg bid for 14 days, to treat a yeast UTI. (11) Rash Conclusion/Plan: Improved Started on POD #1 with a rash on her upper abdomen. On POD #2, the rash extended down the entire abdomen. It was raised and dark pink. It is nonprurit ic. We ordered topical hydrocortisone cream for the rash. No Benadryl, since she has no pruritus.- RN spoke to pharmacist and they reviewed what her new meds were: She received several new meds, including 1 antibiotic dose, she is on new aspirin twice daily, she received hospital formulary glipizide tablets. We stopped that glipizide, ordered patient's own med glipizide. Today we will rechallenge and restart hospital glipizide - Current Meds Current Meds: Current Medications Generic Name Dose Route Start Last Admin Trade Name Freq PRN Reason Stop Dose Admin Acetaminophen 1,000 mg 06/21/22 22:00 06/26/22 14:22 Acetaminophen 500 Mg Tablet PO 1,000 mg TID LOIS Administration Amlodipine Besylate 2.5 mg 06/25/22 21:00 06/25/22 20:43 Amlodipine 5 Mg Tablet PO 2.5 mg QPM LOIS Administration Aspirin 81 mg 06/22/22 09:00 06/26/22 10:27 Aspirin Ec 81 Mg Tablet PO 81 mg BID LOIS Administration Atorvastatin Calcium 20 mg 06/22/22 21:00 06/25/22 20:43 Atorvastatin 10 Mg Tablet PO 20 mg HS LOIS Administration Celecoxib 200 mg 06/21/22 21:00 06/26/22 10:27 Celecoxib 100 Mg Capsule PO 200 mg BID LOIS Administration Docusate Sodium 250 - 500 mg 06/23/22 09:00 06/26/22 10:27 Docusate Sodium 250 Mg Capsule PO 250 mg DAILY LOIS Administration Enoxaparin Sodium 40 mg 06/22/22 09:00 06/26/22 10:26 Enoxaparin 40 Mg/0.4 Ml Syringe SUBQ 40 mg DAILY LOIS Administration Fluconazole 200 mg 06/23/22 21:00 06/26/22 10:27 Fluconazole 100 Mg Tablet PO 200 mg BID LOIS Administration Glipizide 10 mg 06/26/22 17:00 06/26/22 17:39 Glipizide 5 Mg Tablet PO 10 mg BIDWM LOIS Administration Hydrocortisone 1 applic 06/23/22 09:00 06/26/22 10:40 Hydrocortisone 1% Cream 28 Gm Tube TOP 1 applic BID LOIS Administration Losartan Potassium 50 mg 06/23/22 09:00 06/26/22 10:28 Losartan 50 Mg Tablet PO 50 mg DAILY LOIS Administration Metformin HCl 500 mg 06/26/22 17:00 06/26/22 17:39 Metformin 500 Mg Tablet PO 500 mg BIDWM LOIS Administration Nystatin 1 applic 06/21/22 21:00 06/26/22 10:40 Nystatin Powder 15 Gm TOP 1 applic BID LOIS Administration Oxycodone HCl 5 mg 06/21/22 17:45 06/23/22 12:08 Oxycodone 5 Mg Tablet PO 5 mg Q6HR PRN Administration PAIN Paroxetine HCl 20 mg 06/23/22 09:00 06/26/22 10:26 Paroxetine 10 Mg Tablet PO 20 mg DAILY LOIS Administration Polyethylene Glycol 17 gm 06/23/22 09:00 06/26/22 10:28 Polyethylene Glycol 3350 17 Gm Packet PO 17 gm DAILY LOIS Administration Senna 8.6 - 17.2 mg 06/23/22 09:00 06/26/22 10:27 Senna 8.6 Mg Tablet PO 8.6 mg DAILY LOIS Administration Sodium Chloride 10 ml 06/21/22 10:48 06/26/22 10:26 Sodium Chloride Flush 0.9% 10 Ml Syringe IVP 10 ml PRN PRN Administration NEEDED PER PROVIDER ORDERS Sodium Chloride 10 ml 06/21/22 17:00 06/26/22 16:30 Sodium Chloride Flush 0.9% 10 Ml Syringe IVP 10 ml 0100,0900,1700 LOIS Administration - Lab Result Fish Bone Diagrams: 06/25/22 05:51 06/25/22 05:51 - Additional Planning My Orders: My Active Orders 06/25/22 21:00 amLODIPine [Norvasc] 2.5 mg PO QPM 06/26/22 17:00 glipiZIDE [Glucotrol] 10 mg PO BIDWM metFORMIN [Glucophage] 500 mg PO BIDWM 06/26/22 21:00 Insulin Lispro [Humalog Kwikpen U-100] 1 - 5 unit SUBQ 0800,1200,1700,2100 06/27/22 09:00 Solifenacin Succinate [Vesicare] 5 mg PO DAILY Subjective - Subjective Patient Reports: Resting Comfortably, No Complaints Objective Vital Signs: Vital Signs - 24 hr 06/25/22 06/26/22 06/26/22 23:40 08:00 10:31 Temperature 36.9 C 36.3 C L Heart Rate [ 82 81 82 Brachial] Respiratory 20 18 Rate Blood Pressure 164/75 H 179/81 H 181/92 H [Right Brachial artery] O2 Saturation 93 93 06/26/22 06/26/22 06/26/22 10:44 11:41 14:57 Temperature 36.6 C 36.4 C L Heart Rate [ 81 85 79 Brachial] Respiratory 18 16 Rate Blood Pressure 149/86 H 154/81 H 150/80 H [Right Brachial artery] O2 Saturation 93 96 Oxygen O2 Source Room air Oxygen Flow Rate 2 I&O (Last 24 Hrs): Intake and Output Totals x24h 06/25/22 06/25/22 06/26/22 00:59 23:59 23:59 Intake Total 890 Output Total 300 Balance 590 General: Alert, No acute distress HEENT: EOMI, Mucous membr. moist/pink Neck: Supple, Other (Cannot evaluate JVP due to patient's morbidly obese neck) Neuro: Alert, Disoriented, Non Focal Cardiovascular: Regular rate Respiratory: No respiratory distress Abdomen: Soft, Other (Use with a pannus) Extremities: No clubbing, No edema, No tenderness/swelling - Results Results: Laboratory Results WBC 7.1 x10^3/uL (4.8-10.8) 06/25/22 05:51 RBC 3.29 10^6/uL (4.20-5.40) L 06/25/22 05:51 Hgb 10.3 g/dL (12.0-16.0) L 06/25/22 05:51 Hct 33.1 % (37.0-47.0) L 06/25/22 05:51 MCV 100.6 fL (81.0-99.0) H 06/25/22 05:51 MCH 31.3 pg (27.0-31.0) H 06/25/22 05:51 MCHC 31.1 g/dL (32.0-36.0) L 06/25/22 05:51 RDW 13.4 % (12.0-15.0) 06/25/22 05:51 Plt Count 172 10^3/uL (130-450) 06/25/22 05:51 MPV 9.8 fL (7.9-10.8) 06/25/22 05:51 Neut # (Auto) 4.5 10^3/uL (1.5-6.6) 06/25/22 05:51 Lymph # (Auto) 1.6 10^3/uL (1.5-3.5) 06/25/22 05:51 [place] # (Auto) 0.6 10^3/uL (0.0-1.0) 06/25/22 05:51 Eos # (Auto) 0.2 10^3/uL (0.0-0.7) 06/25/22 05:51 Baso # (Auto) 0.0 10^3/uL (0.0-0.1) 06/25/22 05:51 Absolute Nucleated RBC 0.00 x10^3/uL 06/25/22 05:51 Nucleated RBC % 0.0 /100WBC 06/25/22 05:51 Sodium 137 mmol/L (135-145) 06/25/22 05:51 Potassium 3.7 mmol/L (3.5-5.0) 06/25/22 05:51 Chloride 106 mmol/L (101-111) 06/25/22 05:51 Carbon Dioxide 27 mmol/L (21-32) 06/25/22 05:51 Anion Gap 4.0 (6-13) L 06/25/22 05:51 BUN 12 mg/dL (6-20) 06/25/22 05:51 Creatinine 0.4 mg/dL (0.4-1.0) 06/25/22 05:51 Estimated GFR (MDRD) 151 (>89) 06/25/22 05:51 Glucose 176 mg/dL (70-100) H 06/25/22 05:51 Estimat Average Glucose 214 mg/dL (70-100) H 06/22/22 06:06 Hemoglobin A1c % 9.1 % (4.27-6.07) H 06/22/22 06:06 Calcium 8.8 mg/dL (8.5-10.3) 06/25/22 05:51 Magnesium 1.9 mg/dL (1.7-2.8) 06/22/22 06:06 Total Bilirubin 1.2 mg/dL (0.2-1.0) H 06/21/22 05:40 AST 19 IU/L (10-42) 06/21/22 05:40 ALT 16 IU/L (10-60) 06/21/22 05:40 Alkaline Phosphatase 106 IU/L (42-121) 06/21/22 05:40 Total Protein 6.6 g/dL (6.7-8.2) L 06/21/22 05:40 Albumin 3.7 g/dL (3.2-5.5) 06/21/22 05:40 Globulin 2.9 g/dL (2.1-4.2) 06/21/22 05:40 Albumin/Globulin Ratio 1.3 (1.0-2.2) 06/21/22 05:40 Lipase 40 U/L (22-51) 06/21/22 05:40 Urine Color YELLOW 06/21/22 21:30 Urine Clarity CLOUDY (CLEAR) 06/21/22 21:30 Urine pH 6.0 PH (5.0-7.5) 06/21/22 21:30 Ur Specific [place] >=1.030 (1.002-1.030) H 06/21/22 21:30 Urine Protein 30 mg/dL (NEGATIVE) H 06/21/22 21:30 Urine Glucose (UA) 500 mg/dL (NEGATIVE) H 06/21/22 21:30 Urine Ketones NEGATIVE mg/dL (NEGATIVE) 06/21/22 21:30 Urine Occult Blood SMALL (NEGATIVE) H 06/21/22 21:30 Urine Nitrite NEGATIVE (NEGATIVE) 06/21/22 21: Urine Bilirubin NEGATIVE (NEGATIVE) 06/21/22 21: Urine Urobilinogen 1 (NORMAL) E.U./dL (NORMAL) 06/21/22 21:30 Ur Leukocyte Esterase TRACE (NEGATIVE) H 06/21/22 21:30 Urine RBC 0-5 /HPF (0-5) 06/21/22 21:30 Urine WBC >25 /HPF (0-5) H 06/21/22 21:30 Ur Squamous Epith Cells NONE SEEN (<= Few) 06/21/22 21:30 Urine Bacteria Few /HPF (None Seen) 06/21/22 21:30 Urine Yeast PRESENT 06/21/22 21:30 Ur Microscopic Review INDICATED 06/21/22 08:50 Urine Culture Comments INDICATED 06/21/22 21:30 SARS-CoV-2 (PCR) NOT DETECTED 06/21/22 06:50
[2022-06-26] MEDS: amLODIPine 5 MG TABLET PO SCH (21:33)
[2022-06-26] MEDS: ATORVASTATIN 10 MG TABLET PO SCH (21:34)
[2022-06-27] MEDS: SODIUM CHLORIDE FLUSH 0.9% 10 ML SYRINGE IVP SCH ×4 (00:08→23:38)
[2022-06-27] MEDS: ACETAMINOPHEN 500 MG TABLET PO SCH ×3 (05:29→22:04)
[2022-06-27] MEDS: glipiZIDE 5 MG TABLET PO SCH ×2 (07:52→16:54)
[2022-06-27] MEDS: INSULIN LISPRO 300 UNIT/3 ML PEN SUBQ SCH ×4 (07:52→21:25)
[2022-06-27] MEDS: metFORMIN 500 MG TABLET PO SCH ×2 (07:53→16:55)
[2022-06-27] MEDS: ASPIRIN EC 81 MG TABLET PO SCH ×2 (08:46→21:29)
[2022-06-27] MEDS: FLUCONAZOLE 100 MG TABLET PO SCH ×2 (08:46→21:27)
[2022-06-27] MEDS: NYSTATIN POWDER 15 GM TOP SCH ×2 (08:46→21:24)
[2022-06-27] MEDS: LOSARTAN 50 MG TABLET PO SCH (08:46)
[2022-06-27] MEDS: DOCUSATE SODIUM 250 MG CAPSULE PO SCH (08:46)
[2022-06-27] MEDS: SOLIFENACIN SUCCINATE 5 MG TABLET PO SCH (08:46)
[2022-06-27] MEDS: SENNA 8.6 MG TABLET PO SCH (08:47)
[2022-06-27] MEDS: polyethylene glycoL 3350 17 GM PACKET PO SCH (08:47)
[2022-06-27] MEDS: CELECOXIB 100 MG CAPSULE PO SCH ×2 (08:47→21:29)
[2022-06-27] MEDS: PARoxetine 10 MG TABLET PO SCH (08:47)
[2022-06-27] MEDS: ENOXAPARIN 40 MG/0.4 ML SYRINGE SUBQ SCH (08:47)
[2022-06-27] MEDS: HYDROCORTISONE 1% CREAM 28 GM TUBE TOP SCH ×2 (08:48→21:24)
[2022-06-27] MEDS: CHOLECALCIFEROL 25 MCG TABLET PO SCH (10:58)
[2022-06-27] MEDS: CALCIUM CARBONATE CHEW 500 MG TABLET PO SCH ×2 (10:58→21:29)
--- NOTE | 2022-06-27 15:04 | PROVIDER PROGRESS NOTE ---
Subjective - Prog Note Date Prog Note Date: 06/27/22 Prog Note Time: 14:53 - Subjective Subjective: she is easily confused but can follow commands and knows why she is here. No PT since Sunday since we are short staffed. Ortho states they will put a cast on wrist by 06/28 Current Medications - Current Medications Current Medications: Active Medications Acetaminophen (Acetaminophen 500 Mg Tablet) 1,000 mg PO TID [facility] Last Admin: 06/27/22 14:50 Dose: 1,000 mg Amlodipine Besylate (Amlodipine 5 Mg Tablet) 2.5 mg PO QPM [facility] Last Admin: 06/26/22 21:33 Dose: 2.5 mg Aspirin (Aspirin Ec 81 Mg Tablet) 81 mg PO BID [facility] Last Admin: 06/27/22 08:46 Dose: 81 mg Atorvastatin Calcium (Atorvastatin 10 Mg Tablet) 20 mg PO HS [facility] Last Admin: 06/26/22 21:34 Dose: 20 mg Calcium Carbonate/Glycine (Calcium Carbonate Chew 500 Mg Tablet) 500 mg PO BID [facility] Last Admin: 06/27/22 10:58 Dose: 500 mg Celecoxib (Celecoxib 100 Mg Capsule) 200 mg PO BID [facility] Last Admin: 06/27/22 08:47 Dose: 200 mg Cholecalciferol (Cholecalciferol 25 Mcg Tablet) 25 mcg PO DAILY [facility] Last Admin: 06/27/22 10:58 Dose: 25 mcg Docusate Sodium (Docusate Sodium 250 Mg Capsule) 250 - 500 mg PO DAILY [facility] Last Admin: 06/27/22 08:46 Dose: 250 mg Enoxaparin Sodium (Enoxaparin 40 Mg/0.4 Ml Syringe) 40 mg SUBQ DAILY [facility] Last Admin: 06/27/22 08:47 Dose: 40 mg Fluconazole (Fluconazole 100 Mg Tablet) 200 mg PO BID [facility] Last Admin: 06/27/22 08:46 Dose: 200 mg Glipizide (Glipizide 5 Mg Tablet) 10 mg PO BIDWM [facility] Last Admin: 06/27/22 07:52 Dose: 10 mg Hydrocortisone (Hydrocortisone 1% Cream 28 Gm Tube) 1 applic TOP BID [facility] Last Admin: 06/27/22 08:48 Dose: 1 applic Insulin Human Lispro (Insulin Lispro 300 Unit/3 Ml Pen) 1 - 5 unit SUBQ 0800,1200,1700,2100 [facility]; Protocol Last Admin: 06/27/22 11:58 Dose: 3 unit Losartan Potassium (Losartan 50 Mg Tablet) 50 mg PO DAILY [facility] Last Admin: 06/27/22 08:46 Dose: 50 mg Metformin HCl (Metformin 500 Mg Tablet) 500 mg PO BIDWM [facility] Last Admin: 06/27/22 07:53 Dose: 500 mg Nystatin (Nystatin Powder 15 Gm) 1 applic TOP BID [facility] Last Admin: 06/27/22 08:46 Dose: 1 applic Ondansetron HCl (Ondansetron 4 Mg/2 Ml Vial) 4 mg IVP Q6HR PRN PRN Reason: Nausea / Vomiting Oxycodone HCl (Oxycodone 5 Mg Tablet) 5 mg PO Q6HR PRN PRN Reason: PAIN Last Admin: 06/23/22 12:08 Dose: 5 mg Paroxetine HCl (Paroxetine 10 Mg Tablet) 20 mg PO DAILY [facility] Last Admin: 06/27/22 08:47 Dose: 20 mg Polyethylene Glycol (Polyethylene Glycol 3350 17 Gm Packet) 17 gm PO DAILY [facility] Last Admin: 06/27/22 08:47 Dose: 17 gm Senna (Senna 8.6 Mg Tablet) 8.6 - 17.2 mg PO DAILY [facility] Last Admin: 06/27/22 08:47 Dose: 8.6 mg Sodium Chloride (Sodium Chloride Flush 0.9% 10 Ml Syringe) 10 ml IVP PRN PRN PRN Reason: NEEDED PER PROVIDER ORDERS Last Admin: 06/26/22 10:26 Dose: 10 ml Sodium Chloride (Sodium Chloride Flush 0.9% 10 Ml Syringe) 10 ml IVP 0100,0900,1700 [facility] Last Admin: 06/27/22 07:57 Dose: 10 ml Solifenacin (Solifenacin Succinate 5 Mg Tablet) 5 mg PO DAILY [facility] Last Admin: 06/27/22 08:46 Dose: 5 mg Furosemide 20 mg PO DAILY 08/15/18 PARoxetine [Paxil] 20 mg PO DAILY 08/15/18 Potassium Chloride 8 meq PO DAILY 08/15/18 amLODIPine [Norvasc] 10 mg PO DAILY 08/15/18 glipiZIDE [Glipizide] 10 mg PO DAILY 08/15/18 Atorvastatin [Lipitor] 20 mg PO HS 06/22/22 Mirabegron [Myrbetriq] 25 mg PO DAILY 06/22/22 Valsartan 160 mg PO DAILY 06/22/22 Objective - Vital Signs/Intake & Output Reviewed Vital Signs: Yes Vital Signs: Vital Signs x48h Temp Pulse Resp BP Pulse Ox 06/27/22 08:49 68 145/52 H 06/27/22 08:00 36.5 C 72 16 151/78 H 92 Intake & Output: Intake & Output 06/25/22 06/25/22 06/26/22 06/27/22 00:59 23:59 23:59 23:59 Intake Total 1490 730 Output Total 425 1200 Balance 1065 -470 - Objective General Appearance: positive: Alert Eyes Bilateral: positive: PERRL, EOMI ENT: positive: No signs of dehydration Neck: positive: No JVD Respiratory: positive: No respiratory distress. negative: Wheezes, Rales Cardiovascular: positive: Regular rate & rhythm Abdomen: positive: Non-tender, No organomegaly, Nml bowel sounds, No distention Skin: positive: Other (katherine under breast and abd panus) Extremities: positive: Pedal edema. negative: Full ROM Neurologic/Psychiatric: positive: Oriented x3, CN's nml (2-12), Motor nml (but wants to drag right leg even though that's not affected. Almost as if she doesn't want to stand to R to then stand on L.). negative: Facial droop, Slurred/abnml speech - Lab Results Fish Bones: 06/25/22 05:51 06/25/22 05:51 Assessment/Plan - Problem List (1) Hip fracture, left Impression: POD #6 of successful hip surgery by Dr Vazquez. Her pain is under good control with meds. PT and OT evaluations and OOB started and she is participating. The plan is for more rehab at a SNF after DCh. Orthopedics wrote in their note yesterday: Mepelex dressing can remain in place for about a week postoperatively. No need for suture removal. We are awaiting discharge to a half-way facility. However there is been a delay with insurance authorization over the weekend. We should be finding out today about if she should be able to go. (2) Orthostatic hypotension Conclusion/Plan: We are checking orthostatic vital signs and they were very abnormal: 06/25 supine syst BP 173, and standing syst BP 115. She was on Lasix at home wfor leg edema hich has not yet been restarted here. She was on valsartan at home and we started a low-dose of losartan. She was on amlodipine at home which was not restarted here. We gave a 500 cc saline bolus 06/25 We adjusted her BP meds to restart Amlodipine at 2.5 mg, and give it at bedtime, when she will be supine all night. 06/26 hospitalist explained to the , son Judah and Judah's at bedside, what changes have been needed for her severe orthostasis. Also, hopsitalist ayala spect she may need Lasix once a week, not every day, if she re-develops leg edema. The son wants to get a list of the medicines she will go to SNF on, so that he can clean out the medicine cabinet at home and just have her on the correct meds. Today:Supine blood pressure 152/65. Sitting blood pressure 161/66. Standing blood pressure 165/70. (3) Supine HTN Conclusion/Plan: This patient carries a diagnosis of HTN and at home she was on valsartan and amlodipine. Here we started a low dose of Losartan Here we are seeing supine hypertension, systolic BP 170s, but she also has severe orthostasis. Thus we adjusted her BP meds to restart Amlodipine 2.5mg, and move it to bedtime, before she will be supine thru the night. See today's BP under #2. (4) Fall at home Conclusion/Plan: Etiology could have been orthostasis from volume depletion or a potential infection, given the urinary frequency complaint. Another possibility, is that, because she has a L knee that is contracted (reported after surgery by Orthopedist), maybe her abnormal gait caused the fall. We checked orthostatic vital signs and they are abnormal. Meds adjusted further 06/26 and today BP is better. Ready for discharge dependng on disposition from Insurance company authorization PT to continue post-hip surg. (5) Wrist fracture, left Conclusion/Plan: POD #6 after wrist was set by Ortho in OR, while under general anesthesia for the hip. Continue pain meds prn Orthopedics wrote in their note 06/25: Left wrist Colles' fracture will likely need a cast. This may need to be done in the hospital prior to discharge to a half-way facility. Today they tell me they will set her wrist 06/28 (6) DM type 2 (diabetes mellitus, type 2) Conclusion/Plan: The patient was only on glipizide for diabetes treatment. The makes all the meals and he admitted to me at admission, that she is on no diabetic diet whatsoever. He is the cook and "only opens canned food and warms it and heats up frozen dinners". The patient claimed she checks her fingerstick glucose checks twice a day and the said she has not done that in 2 years. He reported they eat donuts and Twinkies and thought the Glipizide would "take care of the Diabetes". We learned from our Software Systems Analyst that they both drink "sugar water" all day, for hydration. We asked for PCP records to see why prior Metformin was stopped. We received records from [facility]. Her PCP is now Dr. Jenae Armas. There is no information in those records on why Metformin was stopped and Glipizide started. Also records state the pt told the PCP she checks her fingerstick glu twice a day and more lancets were ordered. There was nothing documented about discussing management or a diabetic diet. Her A1c came back at 9.1, but adm glu was 400. We ordered Nutrition consult for Diabetic education. Son wanted to learn how to help. Continue with a diabetic diet while here, fingerstick checks and sliding scale insulin coverage. Glipizide was increased from daily to bid several days ago. Metformin once a day started 06/26. Glucose June 26 was 181, 268, 250, 306. Today she was 198, 255. Lispro was added June 26. I will add Lantus 10 units at night. Unfortunately she may need to go home on that. (7) Dementia Conclusion/Plan: The patient has a poor memory which was evident during previous hospitalist first meeting. Her medication list showed that she was on Aricept, but the said that Aricept was stopped for unknown reason. Also that she has a "memory doctor" We asked for PCP records to see why Aricept was stopped. Her Neurologist is Dr Camacho Kellogg and her Aricept was stopped because it caused bradycardia. She was offered to start Memantine, but she and her declined it. Consulting and for assistance going forward. (8) Hx Asthma Her admission H&P said that she has a history of COPD. The son, at bedside today, said she never had COPD, was never a smoker. Son and said it was Hx of Asthma. She used to take inhalers when she had "wheezing attacks" according to the . The also reported that after they got rid of all pets, she has had no more wheezing attacks. (9) Hx lung cancer Per the son, a lobe was removed. Per the , only the mass in the lung was removed. We asked for PCP records and read that she had a wedge lung resection. 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 Records also show that she had breast CA and got Tamoxifen and radiation after lumpectomy. She has also had many skin cancers removed: Squamous cell and Melanomas. (10) Yeast UTI Conclusion/Plan: Resolved, if she indeed had it. At admission, the patient reported seeing blood in her urine recently (although, given her dementia, this report is now in question) The ED provider got a history from the patient's of urinary frequency and urgency. Her initial UA was abnormal but had many squamous cells. We have repeated her UA and the urine culture grew yeast. Because of her DM and her skin fungus, we started Fluconazole 200 mg bid for 14 days, to treat a yeast UTI. (11) Rash Conclusion/Plan: Improved Started on POD #1 with a rash on her upper abdomen. On POD #2, the rash extended down the entire abdomen. It was raised and dark pink. It is nonpruritic. We ordered topical hydrocortisone cream for the rash. No Benadryl, since she has no pruritus.- RN spoke to pharmacist and they reviewed what her new meds were: She received several new meds, including 1 antibiotic dose, she is on new aspirin twice daily, she received hospital formulary glipizide tablets. We stopped that glipizide, ordered patient's own med glipizide. 06/26 restarted hospital glipizide to rechallenge her. So far no recurrence of rash.
[2022-06-27] MEDS: INSULIN GLARGINE-YFGN 300 UNIT/3 ML PEN SUBQ SCH (21:25)
[2022-06-27] MEDS: ATORVASTATIN 10 MG TABLET PO SCH (21:28)
[2022-06-27] MEDS: amLODIPine 5 MG TABLET PO SCH (21:31)
[2022-06-28] MEDS: ACETAMINOPHEN 500 MG TABLET PO SCH ×3 (06:12→21:45)
[2022-06-28] MEDS: polyethylene glycoL 3350 17 GM PACKET PO SCH (08:47)
[2022-06-28] MEDS: CALCIUM CARBONATE CHEW 500 MG TABLET PO SCH ×2 (08:47→21:45)
[2022-06-28] MEDS: glipiZIDE 5 MG TABLET PO SCH ×2 (08:47→17:21)
[2022-06-28] MEDS: DOCUSATE SODIUM 250 MG CAPSULE PO SCH (08:48)
[2022-06-28] MEDS: ENOXAPARIN 40 MG/0.4 ML SYRINGE SUBQ SCH (08:48)
[2022-06-28] MEDS: FLUCONAZOLE 100 MG TABLET PO SCH ×2 (08:48→21:45)
[2022-06-28] MEDS: ASPIRIN EC 81 MG TABLET PO SCH ×2 (08:48→21:45)
[2022-06-28] MEDS: CHOLECALCIFEROL 25 MCG TABLET PO SCH (08:48)
[2022-06-28] MEDS: PARoxetine 10 MG TABLET PO SCH (08:48)
[2022-06-28] MEDS: SENNA 8.6 MG TABLET PO SCH (08:48)
[2022-06-28] MEDS: metFORMIN 500 MG TABLET PO SCH ×2 (08:48→17:21)
[2022-06-28] MEDS: CELECOXIB 100 MG CAPSULE PO SCH ×2 (08:48→21:45)
[2022-06-28] MEDS: LOSARTAN 50 MG TABLET PO SCH (08:48)
[2022-06-28] MEDS: SOLIFENACIN SUCCINATE 5 MG TABLET PO SCH (08:48)
[2022-06-28] MEDS: HYDROCORTISONE 1% CREAM 28 GM TUBE TOP SCH ×2 (08:49→21:51)
[2022-06-28] MEDS: NYSTATIN POWDER 15 GM TOP SCH ×2 (08:49→21:52)
[2022-06-28] MEDS: INSULIN LISPRO 300 UNIT/3 ML PEN SUBQ SCH ×4 (08:50→21:52)
[2022-06-28] MEDS: SODIUM CHLORIDE FLUSH 0.9% 10 ML SYRINGE IVP SCH ×2 (08:50→17:22)
--- NOTE | 2022-06-28 12:06 | PROVIDER PROGRESS NOTE ---
Subjective - General Admit Date: 06/21/22 Procedure Date: 06/21/22 Post Op Days: 7 Procedure Performed: ORIF left hip intertrochanteric fracture, closed reduction left wrist - Review of Systems Wound/Incisions: positive: Healing well, Dressing dry and intact, No drainage General: positive: No symptoms All Other Systems: positive: Reviewed and negative (This was limited information because of the patient's dementia and the could not be reached.) - Other Other Information/Narrative: Alert, sitting up in bed drinking her coffee Pain is tolerable Awaiting decision about discharge from social work Daughter present Objective - Patient Data Vital Signs: Vital Signs x48h Temp Pulse Resp BP Pulse Ox 06/28/22 07:28 36.6 C 77 22 135/68 H 94 Intake & Output: Intake and Output Totals x24h 06/26/22 06/27/22 06/28/22 23:59 23:59 23:59 Intake Total 1490 1230 200 Output Total 425 1600 700 Balance 1065 -370 -500 - Lab Results Lab Results: 06/25/22 05:51 06/25/22 05:51 - Imaging Results Radiology Imaging: positive: Final report received - Current Medications Current Medications: Current Medications Generic Name Dose Route Start Last Admin Trade Name Freq PRN Reason Stop Dose Admin Acetaminophen 1,000 mg 06/21/22 22:00 06/28/22 06:12 Acetaminophen 500 Mg Tablet PO 1,000 mg TID [facility] Administration Amlodipine Besylate 2.5 mg 06/25/22 21:00 06/27/22 21:31 Amlodipine 5 Mg Tablet PO 2.5 mg QPM [facility] Administration Aspirin 81 mg 06/22/22 09:00 06/28/22 08:48 Aspirin Ec 81 Mg Tablet PO 81 mg BID [facility] Administration Atorvastatin Calcium 20 mg 06/22/22 21:00 06/27/22 21:28 Atorvastatin 10 Mg Tablet PO 20 mg HS [facility] Administration Calcium Carbonate/Glycine 500 mg 06/27/22 10:00 06/28/22 08:47 Calcium Carbonate Chew 500 Mg Tablet PO 500 mg BID [facility] Administration Celecoxib 200 mg 06/21/22 21:00 06/28/22 08:48 Celecoxib 100 Mg Capsule PO 200 mg BID [facility] Administration Cholecalciferol 25 mcg 06/27/22 10:00 06/28/22 08:48 Cholecalciferol 25 Mcg Tablet PO 25 mcg DAILY [facility] Administration Docusate Sodium 250 - 500 mg 06/23/22 09:00 06/28/22 08:48 Docusate Sodium 250 Mg Capsule PO 250 mg DAILY [facility] Administration Enoxaparin Sodium 40 mg 06/22/22 09:00 06/28/22 08:48 Enoxaparin 40 Mg/0.4 Ml Syringe SUBQ 40 mg DAILY [facility] Administration Fluconazole 200 mg 06/23/22 21:00 06/28/22 08:48 Fluconazole 100 Mg Tablet PO 200 mg BID [facility] Administration Glipizide 10 mg 06/26/22 17:00 06/28/22 08:47 Glipizide 5 Mg Tablet PO 10 mg BIDWM [facility] Administration Hydrocortisone 1 applic 06/23/22 09:00 06/28/22 08:49 Hydrocortisone 1% Cream 28 Gm Tube TOP 1 applic BID [facility] Administration Insulin Glargine-yfgn 10 unit 06/27/22 21:00 06/27/22 21:25 Insulin Glargine-Yfgn 300 Unit/3 Ml Pen SUBQ 10 unit QPM [facility] Administration Insulin Human Lispro 1 - 5 unit 06/26/22 21:00 06/28/22 08:50 Insulin Lispro 300 Unit/3 Ml Pen SUBQ Not Given 0800,1200,1700,2100 [facility] Protocol Losartan Potassium 50 mg 06/23/22 09:00 06/28/22 08:48 Losartan 50 Mg Tablet PO 50 mg DAILY [facility] Administration Metformin HCl 500 mg 06/26/22 17:00 06/28/22 08:48 Metformin 500 Mg Tablet PO 500 mg BIDWM [facility] Administration Nystatin 1 applic 06/21/22 21:00 06/28/22 08:49 Nystatin Powder 15 Gm TOP 1 applic BID [facility] Administration Oxycodone HCl 5 mg 06/21/22 17:45 06/23/22 12:08 Oxycodone 5 Mg Tablet PO 5 mg Q6HR PRN Administration PAIN Paroxetine HCl 20 mg 06/23/22 09:00 06/28/22 08:48 Paroxetine 10 Mg Tablet PO 20 mg DAILY [facility] Administration Polyethylene Glycol 17 gm 06/23/22 09:00 06/28/22 08:47 Polyethylene Glycol 3350 17 Gm Packet PO 17 gm DAILY [facility] Administration Senna 8.6 - 17.2 mg 06/23/22 09:00 06/28/22 08:48 Senna 8.6 Mg Tablet PO 8.6 mg DAILY [facility] Administration Sodium Chloride 10 ml 06/21/22 10:48 06/26/22 10:26 Sodium Chloride Flush 0.9% 10 Ml Syringe IVP 10 ml PRN PRN Administration NEEDED PER PROVIDER ORDERS Sodium Chloride 10 ml 06/21/22 17:00 06/28/22 08:50 Sodium Chloride Flush 0.9% 10 Ml Syringe IVP 10 ml 0100,0900,1700 [facility] Administration Solifenacin 5 mg 06/27/22 09:00 06/28/22 08:48 Solifenacin Succinate 5 Mg Tablet PO 5 mg DAILY [facility] Administration - Physical Exam Wound/Incisions: positive: Healing well, Dressing dry and intact, Other (Minimal dried blood on dressing) General Appearance: positive: No acute distress, Alert Skin: positive: No rash, Warm, Dry Extremities: positive: Non-tender, Nml appearance Neurologic/Psychiatric: positive: Oriented x3 Comments/Other: Femoral and sciatic nerve intact, appropriate range of motion for postoperative day 7 for left left hip. Significant ecchymosis about the left forearm with some decreased swelling to the left wrist. Neurovascularly intact to left upper and lower extremity Impression/Plan - Problem List Problem List: 86-year-old female who is postoperative day 7 from an ORIF of the left hip for intertrochanteric fracture and closed reduction of the left wrist. She is recovering well and pain is managed on the current regimen. Plan: -Pain management per hospitalist -DVT prophylaxis with 81 mg of aspirin twice daily for 6 weeks -Weightbearing as tolerated to left lower extremity -Nonweightbearing to left upper extremity -Platform walker required for ambulation due to weightbearing status of left wrist -Continue physical therapy and Occupational Therapy -Mepilex dressing in place on left hip, can be removed -Dermabond in place on left hip which will fall off on its own -No need for suture removal from left hip -Cast placed today on left wrist which should be left in place until follow-up in orthopedic clinic -Follow-up at [facility] orthopedic clinic within 2 weeks of discharge from hospital -Disposition awaiting confirmation of which retirement facility to which she will be accepted
--- NOTE | 2022-06-28 16:19 | PROVIDER PROGRESS NOTE ---
Subjective - Prog Note Date Prog Note Date: 06/28/22 Prog Note Time: 16:17 - Subjective Pt reports feeling: Improved Subjective: No new complaints. She says her hip hurts but she cannot remember that it was broken and that she needed surgery. She denies any chest pain, coughing, palpitations. Current Medications - Current Medications Current Medications: Active Medications Acetaminophen (Acetaminophen 500 Mg Tablet) 1,000 mg PO TID [facility] Last Admin: 06/28/22 14:03 Dose: 1,000 mg Amlodipine Besylate (Amlodipine 5 Mg Tablet) 2.5 mg PO QPM [facility] Last Admin: 06/27/22 21:31 Dose: 2.5 mg Aspirin (Aspirin Ec 81 Mg Tablet) 81 mg PO BID [facility] Last Admin: 06/28/22 08:48 Dose: 81 mg Atorvastatin Calcium (Atorvastatin 10 Mg Tablet) 20 mg PO HS [facility] Last Admin: 06/27/22 21:28 Dose: 20 mg Calcium Carbonate/Glycine (Calcium Carbonate Chew 500 Mg Tablet) 500 mg PO BID [facility] Last Admin: 06/28/22 08:47 Dose: 500 mg Celecoxib (Celecoxib 100 Mg Capsule) 200 mg PO BID [facility] Last Admin: 06/28/22 08:48 Dose: 200 mg Cholecalciferol (Cholecalciferol 25 Mcg Tablet) 25 mcg PO DAILY [facility] Last Admin: 06/28/22 08:48 Dose: 25 mcg Docusate Sodium (Docusate Sodium 250 Mg Capsule) 250 - 500 mg PO DAILY [facility] Last Admin: 06/28/22 08:48 Dose: 250 mg Enoxaparin Sodium (Enoxaparin 40 Mg/0.4 Ml Syringe) 40 mg SUBQ DAILY [facility] Last Admin: 06/28/22 08:48 Dose: 40 mg Fluconazole (Fluconazole 100 Mg Tablet) 200 mg PO BID [facility] Last Admin: 06/28/22 08:48 Dose: 200 mg Glipizide (Glipizide 5 Mg Tablet) 10 mg PO BIDWM [facility] Last Admin: 06/28/22 08:47 Dose: 10 mg Hydrocortisone (Hydrocortisone 1% Cream 28 Gm Tube) 1 applic TOP BID [facility] Last Admin: 06/28/22 08:49 Dose: 1 applic Insulin Glargine-yfgn (Insulin Glargine-Yfgn 300 Unit/3 Ml Pen) 10 unit SUBQ QPM [facility] Last Admin: 06/27/22 21:25 Dose: 10 unit Insulin Human Lispro (Insulin Lispro 300 Unit/3 Ml Pen) 1 - 5 unit SUBQ 0800,1200,1700,2100 [facility]; Protocol Last Admin: 06/28/22 12:08 Dose: 1 unit Losartan Potassium (Losartan 50 Mg Tablet) 50 mg PO DAILY [facility] Last Admin: 06/28/22 08:48 Dose: 50 mg Metformin HCl (Metformin 500 Mg Tablet) 500 mg PO BIDWM [facility] Last Admin: 06/28/22 08:48 Dose: 500 mg Nystatin (Nystatin Powder 15 Gm) 1 applic TOP BID [facility] Last Admin: 06/28/22 08:49 Dose: 1 applic Ondansetron HCl (Ondansetron 4 Mg/2 Ml Vial) 4 mg IVP Q6HR PRN PRN Reason: Nausea / Vomiting Oxycodone HCl (Oxycodone 5 Mg Tablet) 5 mg PO Q6HR PRN PRN Reason: PAIN Last Admin: 06/23/22 12:08 Dose: 5 mg Paroxetine HCl (Paroxetine 10 Mg Tablet) 20 mg PO DAILY [facility] Last Admin: 06/28/22 08:48 Dose: 20 mg Polyethylene Glycol (Polyethylene Glycol 3350 17 Gm Packet) 17 gm PO DAILY [facility] Last Admin: 06/28/22 08:47 Dose: 17 gm Senna (Senna 8.6 Mg Tablet) 8.6 - 17.2 mg PO DAILY [facility] Last Admin: 06/28/22 08:48 Dose: 8.6 mg Sodium Chloride (Sodium Chloride Flush 0.9% 10 Ml Syringe) 10 ml IVP PRN PRN PRN Reason: NEEDED PER PROVIDER ORDERS Last Admin: 06/26/22 10:26 Dose: 10 ml Sodium Chloride (Sodium Chloride Flush 0.9% 10 Ml Syringe) 10 ml IVP 0100,0900,1700 [facility] Last Admin: 06/28/22 08:50 Dose: 10 ml Solifenacin (Solifenacin Succinate 5 Mg Tablet) 5 mg PO DAILY [facility] Last Admin: 06/28/22 08:48 Dose: 5 mg Furosemide 20 mg PO DAILY 08/15/18 PARoxetine [Paxil] 20 mg PO DAILY 08/15/18 Potassium Chloride 8 meq PO DAILY 08/15/18 amLODIPine [Norvasc] 10 mg PO DAILY 08/15/18 glipiZIDE [Glipizide] 10 mg PO DAILY 08/15/18 Atorvastatin [Lipitor] 20 mg PO HS 06/22/22 Mirabegron [Myrbetriq] 25 mg PO DAILY 06/22/22 Valsartan 160 mg PO DAILY 06/22/22 Objective - Vital Signs/Intake & Output Reviewed Vital Signs: Yes Vital Signs: Vital Signs x48h Temp Pulse Resp BP Pulse Ox 06/28/22 15:39 36.9 C 71 20 145/64 H 94 Intake & Output: Intake & Output 06/25/22 06/26/22 06/27/22 06/28/22 23:59 23:59 23:59 23:59 Intake Total 1490 1230 400 Output Total 425 1600 1200 Balance 1065 -370 -800 - Objective General Appearance: positive: No acute distress, Alert, Other (Very pleasant, cooperative elderly woman who has no idea where she is or why she is here) Eyes Bilateral: positive: PERRL, EOMI Neck: positive: No JVD. negative: Stiff neck Respiratory: positive: No respiratory distress. negative: Wheezes, Rales, Rhonchi Cardiovascular: positive: Regular rate & rhythm Abdomen: positive: Non-tender, No organomegaly, Nml bowel sounds, No distention, Other (Last bowel movement June 25) Skin: positive: Warm, Dry Extremities: positive: Pedal edema Neurologic/Psychiatric: positive: CN's nml (2-12), Motor nml, Disoriented to place, Disoriented to time (Her disorientation varies. There are some moments in the day where she knows why she is here and that she remember she broke her hip. Sometimes she does not.) - Lab Results Fish Bones: 06/25/22 05:51 06/25/22 05:51 Assessment/Plan - Problem List (1) Hip fracture, left Impression: POD #7 of successful hip surgery by Dr Vazquez. Her pain is under good control with meds. PT and OT evaluations and OOB started and she is participating. The plan is for more rehab at a SNF after DCh. I spoke to orthopedics about her today. The Mepilex has fallen off and it usually removed after 7 days. They would like to have her follow-up with orthopedics in another week. They need repeat films in 6 weeks. Keep the wound clean and dry. There are no sutures to remove. (2) Orthostatic hypotension resolved. Conclusion/Plan: We are checking orthostatic vital signs and they were very abnormal: 06/25 supine syst BP 173, and standing syst BP 115. She was on Lasix at home wfor leg edema hich has not yet been restarted here. She was on valsartan at home and we started a low-dose of losartan. She was on amlodipine at home which was not restarted here. We gave a 500 cc saline bolus 06/25 We adjusted her BP meds to restart Amlodipine at 2.5 mg, and give it at bedtime, when she will be supine all night. 06/26 hospitalist explained to the , son Judah and Judah's at bedside, what changes have been needed for her severe orthostasis. Also, hopsitalist suspect she may need Lasix once a week, not every day, if she re-develops leg edema. The son wants to get a list of the medicines she will go to SNF on, so that he can clean out the medicine cabinet at home and just have her on the correct meds. By 06/27/22 her Supine blood pressure 152/65. Sitting blood pressure 161/66. Standing blood pressure 165/70. Today supine is 160/62. Sitting is 163/71. Standing is 154/94. (3) Supine HTN Conclusion/Plan: This patient carries a diagnosis of HTN and at home she was on valsartan and amlodipine. Here we started a low dose of Losartan Here we are seeing supine hypertension, systolic BP 170s, but she also has severe orthostasis. Thus we adjusted her BP meds to restart Amlodipine 2.5mg, and move it to bedtime, before she will be supine thru the night. See today's BP under #2. (4) Fall at home Conclusion/Plan: Etiology could have been orthostasis from volume depletion or a potential infection, given the urinary frequency complaint. Another possibility, is that, because she has a L knee that is contracted (reported after surgery by Orthopedist), maybe her abnormal gait caused the fall. We checked orthostatic vital signs and they are abnormal. Meds adjusted further 06/26 and today BP is better. Ready for discharge dependng on disposition from Insurance company authorization PT to continue post-hip surg. (5) Wrist fracture, left Conclusion/Plan: POD #7 after wrist was set by Ortho in OR, while under general anesthesia for the hip. Continue pain meds prn Orthopedics wrote in their note 06/25: Left wrist Colles' fracture will likely need a cast. This may need to be done in the hospital prior to discharge to a penitentiary facility. She had the cast placed today. She will need a platform walker to support this wrist while she also tries to walk weightbearing as tolerated on the opposite leg. (6) DM type 2 (diabetes mellitus, type 2) Conclusion/Plan: The patient was only on glipizide for diabetes treatment. The makes all the meals and he admitted to me at admission, that she is on no diabetic diet whatsoever. He is the cook and "only opens canned food and warms it and heats up frozen dinners". The patient claimed she checks her fingerstick glucose checks twice a day and the said she has not done that in 2 years. He reported they eat donuts and Twinkies and thought the Glipizide would "take care of the Diabetes". We learned from our Claims Account Specialist that they both drink "sugar water" all day, for hydration. We asked for PCP records to see why prior Metformin was stopped. We received records from [facility]. Her PCP is now Dr. Jenae Armas. There is no information in those records on why Metformin was stopped and Glipizide started. Also records state the pt told the PCP she checks her fingerstick glu twice a day and more lancets were ordered. There was nothing documented about discussing management or a diabetic diet. Her A1c came back at 9.1, but adm glu was 400. We ordered Nutrition consult for Diabetic education. Son wanted to learn how to help. Continue with a diabetic diet while here, fingerstick checks and sliding scale insulin coverage. Glipizide was increased from daily to bid several days ago. Metformin once a day started 06/26. Glucose June 26 was 181, 268, 250, 306. June 27 she was 198, 255. Lispro was added June 26. Lantus was added last night. Today's glucose is 122, 178. No change in management (7) Dementia Conclusion/Plan: The patient has a poor memory which was evident during previous hospitalist first meeting. Her medication list showed that she was on Aricept, but the said that Aricept was stopped for unknown reason. Also that she has a "memory doctor" We asked for PCP records to see why Aricept was stopped. Her Neurologist is Dr Camacho Kellogg and her Aricept was stopped because it caused bradycardia. She was offered to start Memantine, but she and her declined it. Consulting and for assistance going forward. (8) Hx Asthma Her admission H&P said that she has a history of COPD. The son, at bedside 06/26 said she never had COPD, was never a smoker. Son and said it was Hx of Asthma. She used to take inhalers when she had "wheezing attacks" according to the . The also reported that after they got rid of all pets, she has had no more wheezing attacks. (9) Hx lung cancer Per the son, a lobe was removed. Per the , only the mass in the lung was removed. We asked for PCP records and read that she had a wedge lung resection. She has a Contact Center Representative who follows her. Records also show that she had breast CA and got Tamoxifen and radiation after lumpectomy. She has also had many skin cancers removed: Squamous cell and Melanomas. (10) Yeast UTI Conclusion/Plan: Resolved, if she indeed had it. At admission, the patient reported seeing blood in her urine recently (although, given her dementia, this report is now in question) The ED provider got a history from the patient's of urinary frequency and urgency. Her initial UA was abnormal but had many squamous cells. We have repeated her UA and the urine culture grew yeast. Because of her DM and her skin fungus, we started Fluconazole 200 mg bid for 14 days, to treat a yeast UTI. (11) Rash Conclusion/Plan: Improved Started on POD #1 with a rash on her upper abdomen. On POD #2, the rash extended down the entire abdomen. It was raised and dark pink. It is nonpruritic. We ordered topical hydrocortisone cream for the rash. No Benadryl, since she has no pruritus.- RN spoke to pharmacist and they reviewed what her new meds were: She received several new meds, including 1 antibiotic dose, she is on new aspirin twice daily, she received hospital formulary glipizide tablets. We stopped that glipizide, ordered patient's own med glipizide. 06/26 restarted hospital glipizide to rechallenge her. So far no recurrence of rash.
[2022-06-28] MEDS: KETOROLAC 15 MG/ML VIAL IVP PRN (17:25)
[2022-06-28] MEDS: amLODIPine 5 MG TABLET PO SCH (21:44)
[2022-06-28] MEDS: ATORVASTATIN 10 MG TABLET PO SCH (21:45)
[2022-06-28] MEDS: INSULIN GLARGINE-YFGN 300 UNIT/3 ML PEN SUBQ SCH (21:51)
[2022-06-29] MEDS: SODIUM CHLORIDE FLUSH 0.9% 10 ML SYRINGE IVP SCH ×3 (02:51→17:03)
[2022-06-29] MEDS: ACETAMINOPHEN 500 MG TABLET PO SCH ×3 (06:54→21:30)
[2022-06-29] MEDS: INSULIN LISPRO 300 UNIT/3 ML PEN SUBQ SCH ×4 (08:40→21:33)
[2022-06-29] MEDS: polyethylene glycoL 3350 17 GM PACKET PO SCH (08:41)
[2022-06-29] MEDS: PARoxetine 10 MG TABLET PO SCH (08:42)
[2022-06-29] MEDS: ENOXAPARIN 40 MG/0.4 ML SYRINGE SUBQ SCH (08:42)
[2022-06-29] MEDS: glipiZIDE 5 MG TABLET PO SCH ×2 (08:43→17:03)
[2022-06-29] MEDS: SOLIFENACIN SUCCINATE 5 MG TABLET PO SCH (08:43)
[2022-06-29] MEDS: CALCIUM CARBONATE CHEW 500 MG TABLET PO SCH ×2 (08:44→21:32)
[2022-06-29] MEDS: ASPIRIN EC 81 MG TABLET PO SCH ×2 (08:44→21:31)
[2022-06-29] MEDS: metFORMIN 500 MG TABLET PO SCH ×2 (08:44→17:03)
[2022-06-29] MEDS: LOSARTAN 50 MG TABLET PO SCH (08:44)
[2022-06-29] MEDS: CHOLECALCIFEROL 25 MCG TABLET PO SCH (08:44)
[2022-06-29] MEDS: CELECOXIB 100 MG CAPSULE PO SCH ×2 (08:44→21:31)
[2022-06-29] MEDS: FLUCONAZOLE 100 MG TABLET PO SCH ×2 (08:44→21:32)
[2022-06-29] MEDS: DOCUSATE SODIUM 250 MG CAPSULE PO SCH (08:46)
[2022-06-29] MEDS: SENNA 8.6 MG TABLET PO SCH ×2 (08:47→21:33)
[2022-06-29] MEDS: NYSTATIN POWDER 15 GM TOP SCH ×2 (08:51→21:33)
[2022-06-29] MEDS: HYDROCORTISONE 1% CREAM 28 GM TUBE TOP SCH ×2 (08:52→21:32)
--- NOTE | 2022-06-29 13:34 | PROVIDER PROGRESS NOTE ---
Subjective - Prog Note Date Prog Note Date: 06/29/22 Prog Note Time: 13:37 - Subjective Subjective: She had a cast placed yesterday. Within 2 hours she was complaining that her fingers were tight, and that the cast was too tight. We checked her capillary refill and it was normal. It continues to be normal this morning. There is some edema around her fingers. But her arm and hand are dependent on the bed. Current Medications - Current Medications Current Medications: Active Medications Acetaminophen (Acetaminophen 500 Mg Tablet) 1,000 mg PO TID [facility] Last Admin: 06/29/22 06:54 Dose: 1,000 mg Amlodipine Besylate (Amlodipine 5 Mg Tablet) 2.5 mg PO QPM [facility] Last Admin: 06/28/22 21:44 Dose: 2.5 mg Aspirin (Aspirin Ec 81 Mg Tablet) 81 mg PO BID [facility] Last Admin: 06/29/22 08:44 Dose: 81 mg Atorvastatin Calcium (Atorvastatin 10 Mg Tablet) 20 mg PO HS [facility] Last Admin: 06/28/22 21:45 Dose: 20 mg Calcium Carbonate/Glycine (Calcium Carbonate Chew 500 Mg Tablet) 500 mg PO BID [facility] Last Admin: 06/29/22 08:44 Dose: 500 mg Celecoxib (Celecoxib 100 Mg Capsule) 200 mg PO BID [facility] Last Admin: 06/29/22 08:44 Dose: 200 mg Cholecalciferol (Cholecalciferol 25 Mcg Tablet) 25 mcg PO DAILY [facility] Last Admin: 06/29/22 08:44 Dose: 25 mcg Docusate Sodium (Docusate Sodium 250 Mg Capsule) 250 - 500 mg PO DAILY [facility] Last Admin: 06/29/22 08:46 Dose: 250 mg Enoxaparin Sodium (Enoxaparin 40 Mg/0.4 Ml Syringe) 40 mg SUBQ DAILY [facility] Last Admin: 06/29/22 08:42 Dose: 40 mg Fluconazole (Fluconazole 100 Mg Tablet) 200 mg PO BID [facility] Last Admin: 06/29/22 08:44 Dose: 200 mg Glipizide (Glipizide 5 Mg Tablet) 10 mg PO BIDWM [facility] Last Admin: 06/29/22 08:43 Dose: 10 mg Hydrocortisone (Hydrocortisone 1% Cream 28 Gm Tube) 1 applic TOP BID [facility] Last Admin: 06/29/22 08:52 Dose: 1 applic Insulin Glargine-yfgn (Insulin Glargine-Yfgn 300 Unit/3 Ml Pen) 10 unit SUBQ QPM [facility] Last Admin: 06/28/22 21:51 Dose: 10 unit Insulin Human Lispro (Insulin Lispro 300 Unit/3 Ml Pen) 1 - 5 unit SUBQ 0800,1200,1700,2100 [facility]; Protocol Last Admin: 06/29/22 12:24 Dose: 1 unit Ketorolac Tromethamine (Ketorolac 15 Mg/Ml Vial) 15 mg IVP Q6HR PRN PRN Reason: PAIN Last Admin: 06/28/22 17:25 Dose: 15 mg Losartan Potassium (Losartan 50 Mg Tablet) 50 mg PO DAILY [facility] Last Admin: 06/29/22 08:44 Dose: 50 mg Metformin HCl (Metformin 500 Mg Tablet) 500 mg PO BIDWM [facility] Last Admin: 06/29/22 08:44 Dose: 500 mg Nystatin (Nystatin Powder 15 Gm) 1 applic TOP BID [facility] Last Admin: 06/29/22 08:51 Dose: 15 applic Ondansetron HCl (Ondansetron 4 Mg/2 Ml Vial) 4 mg IVP Q6HR PRN PRN Reason: Nausea / Vomiting Oxycodone HCl (Oxycodone 5 Mg Tablet) 5 mg PO Q6HR PRN PRN Reason: PAIN Last Admin: 06/23/22 12:08 Dose: 5 mg Paroxetine HCl (Paroxetine 10 Mg Tablet) 20 mg PO DAILY [facility] Last Admin: 06/29/22 08:42 Dose: 20 mg Polyethylene Glycol (Polyethylene Glycol 3350 17 Gm Packet) 17 gm PO DAILY [facility] Last Admin: 06/29/22 08:41 Dose: 17 gm Senna (Senna 8.6 Mg Tablet) 8.6 - 17.2 mg PO DAILY [facility] Last Admin: 06/29/22 08:47 Dose: 8.6 mg Sodium Chloride (Sodium Chloride Flush 0.9% 10 Ml Syringe) 10 ml IVP PRN PRN PRN Reason: NEEDED PER PROVIDER ORDERS Last Admin: 06/26/22 10:26 Dose: 10 ml Sodium Chloride (Sodium Chloride Flush 0.9% 10 Ml Syringe) 10 ml IVP 0100,0900,1700 [facility] Last Admin: 06/29/22 08:47 Dose: 10 ml Solifenacin (Solifenacin Succinate 5 Mg Tablet) 5 mg PO DAILY [facility] Last Admin: 06/29/22 08:43 Dose: 5 mg Furosemide 20 mg PO DAILY 08/15/18 PARoxetine [Paxil] 20 mg PO DAILY 08/15/18 Potassium Chloride 8 meq PO DAILY 08/15/18 amLODIPine [Norvasc] 10 mg PO DAILY 08/15/18 glipiZIDE [Glipizide] 10 mg PO DAILY 08/15/18 Atorvastatin [Lipitor] 20 mg PO HS 06/22/22 Mirabegron [Myrbetriq] 25 mg PO DAILY 06/22/22 Valsartan 160 mg PO DAILY 06/22/22 Objective - Vital Signs/Intake & Output Reviewed Vital Signs: Yes Vital Signs: Vital Signs x48h Temp Pulse Resp BP Pulse Ox 06/29/22 10:04 67 94 06/29/22 07:33 36.5 C 70 20 135/52 H Intake & Output: Intake & Output 06/26/22 06/27/22 06/28/22 06/29/22 23:59 23:59 23:59 23:59 Intake Total 1490 1230 980 240 Output Total 425 1600 1650 950 Balance 1065 -370 -670 -710 - Objective General Appearance: positive: Alert, Other (Comfortable. She says that her hip does not bother her very much, it was only the cast on her hand last night) Eyes Bilateral: positive: PERRL, EOMI Neck: positive: No JVD. negative: Stiff neck Respiratory: positive: No respiratory distress. negative: Wheezes, Rales, Rhonchi Cardiovascular: positive: Regular rate & rhythm Abdomen: positive: Non-tender, No organomegaly, Nml bowel sounds, No distention Skin: positive: Warm, Dry Extremities: positive: No pedal edema Neurologic/Psychiatric: positive: Oriented x3 (Very alert today. Much more oriented than yesterday.), CN's nml (2-12), Motor nml - Lab Results Fish Bones: 06/25/22 05:51 06/25/22 05:51 Assessment/Plan - Problem List (1) Hip fracture, left Impression: POD #8 of successful hip surgery by Dr Vazquez. Her pain is under good control with meds. PT and OT evaluations and OOB started and she is participating. The plan is for more rehab at a SNF after DCh. I spoke to orthopedics about her eventual discharge. The Mepilex has fallen off and it usually removed after 7 days. They would like to have her follow-up with orthopedics in another week. They need repeat films in 6 weeks. Keep the wound clean and dry. There are no sutures to remove. She has been ready for dc since POD #6. Awaiting insurance authorization. (2) Orthostatic hypotension resolved. Conclusion/Plan: We checked orthostatic vital signs and they were very abnormal: 06/25 supine syst BP 173, and standing syst BP 115. She was on Lasix at home for leg edema which has not yet been restarted here. She was on valsartan at home and we started a low-dose of losartan. She was on amlodipine at home which was not restarted here. We gave a 500 cc saline bolus 06/25 We adjusted her BP meds to restart Amlodipine at 2.5 mg, and give it at bedtime, when she will be supine all night. 06/26 hospitalist explained to the , son Judah and Judah's at bedside, what changes have been needed for her severe orthostasis. Also, hospitalist suspected she may need Lasix once a week, not every day, if she re-develops leg edema. The son wants to get a list of the medicines she will go to SNF on, so that he can clean out the medicine cabinet at home and just have her on the correct meds. By 06/27/22 her Supine blood pressure 152/65. Sitting blood pressure 161/66. Standing blood pressure 165/70. 06/28 she was supine 160/62. Sitting is 163/71. Standing is 154/94. I will stop checking orthostatics today. (3) Supine HTN Conclusion/Plan: This patient carries a diagnosis of HTN and at home she was on valsartan and amlodipine. Here we started a low dose of Losartan Here we are seeing supine hypertension, systolic BP 170s, but she also has severe orthostasis. Thus we adjusted her BP meds to restart Amlodipine 2.5mg, and move it to bedtime, before she will be supine thru the night. See today's BP under #2. (4) Fall at home Conclusion/Plan: Etiology could have been orthostasis from volume depletion or a potential infection, given the urinary frequency complaint. Another possibility, is that, because she has a L knee that is contracted (reported after surgery by Orthopedist), maybe her abnormal gait caused the fall. We checked orthostatic vital signs and they are abnormal. Meds adjusted further 11/7 and today BP is better. Ready for discharge since POD #6 dependng on disposition from Insurance company authorization PT to continue post-hip surg. Today't PT note: Today's session consisted of functional activities & ther ex to improve independence w/ transfers & LE strength. Pt using platform walker; requiring cues 100% of the time for hand placement and to maintain WB precautions through L wrist. Pt requiring increased assistance to perform STS transfer from bedside today compared to yesterday (modA x1-2 compared to Leticia-CGA). Pt performing transfer to bedside chair slowly and w/ Leticia x2 to sequence steps and manage walker. Recommend DC to SNF when medically cleared via w/c van. Pt left in chair at end of session w/ chair alarm on, L UE elevated, tray table & call light in reach & family present in room. (5) Wrist fracture, left Conclusion/Plan: POD #8 after wrist was set by Ortho in OR, while under general anesthesia for the hip. Continue pain meds prn Orthopedics wrote in their note 11: Left wrist Colles' fracture will likely need a cast. This may need to be done in the hospital prior to discharge to a snf facility. She had the cast placed 11/9.She complained of swollen fingers and that the cast was little too tight yesterday but she had good capillary refill on exam. I have asked her to elevate her hand and not let it dangle. She will need a platform walker to support this wrist while she also tries to walk weightbearing as tolerated on the opposite leg. (6) DM type 2 (diabetes mellitus, type 2) Conclusion/Plan: The patient was only on glipizide for diabetes treatment. The makes all the meals and he admitted to me at admission, that she is on no diabetic diet whatsoever. He is the cook and "only opens canned food and warms it and heats up frozen dinners". The patient claimed she checks her fingerstick glucose checks twice a day and the said she has not done that in 2 years. He reported they eat donuts and Twinkies and thought the Glipizide would "take care of the Diabetes". We learned from our Special Diet Cook that they both drink "sugar water" all day, for hydration. We asked for PCP records to see why prior Metformin was stopped. We received records from [facility]. Her PCP is now Dr. Jenae Armas. There is no information in those records on why Metformin was stopped and Glipizide started. Also records state the pt told the PCP she checks her fingerstick glu twice a day and more lancets were ordered. There was nothing documented about discussing management or a diabetic diet. Her A1c came back at 9.1, but adm glu was 400. We ordered Nutrition consult for Diabetic education. Son wanted to learn how to help. Continue with a diabetic diet while here, fingerstick checks and sliding scale insulin coverage. Glipizide was increased from daily to bid several days ago. Metformin once a day started 06/26. Glucose June 26 was 181, 268, 250, 306. June 27 she was 198, 255. Lispro was added June 26. Lantus was added 06/27. 06/28 glucose is 122, 178. Today her morning glucose is 74. change lantus to daytime dosing in the morning. (7) Dementia Conclusion/Plan: The patient has a poor memory which was evident during previous hospitalist first meeting. Her medication list showed that she was on Aricept, but the said that Aricept was stopped for unknown reason. Also that she has a "memory doctor" We asked for PCP records to see why Aricept was stopped. Her Neurologist is Dr Camacho Kellogg and her Aricept was stopped because it caused bradycardia. She was offered to start Memantine, but she and her declined it. Consulting and for assistance going forward. (8) Hx Asthma Her admission H&P said that she has a history of COPD. The son, at bedside 06/26 said she never had COPD, was never a smoker. Son and said it was Hx of Asthma. She used to take inhalers when she had "wheezing attacks" according to the . The also reported that after they got rid of all pets, she has had no more wheezing attacks. (9) Hx lung cancer Per the son, a lobe was removed. Per the , only the mass in the lung was removed. We asked for PCP records and read that she had a wedge lung resection. She has a Tape Duplicator who follows her. Records also show that she had breast CA and got Tamoxifen and radiation after lumpectomy. She has also had many skin cancers removed: Squamous cell and Melanomas. (10) Yeast UTI Conclusion/Plan: Resolved, if she indeed had it. At admission, the patient reported seeing blood in her urine recently (although, given her dementia, this report is now in question) The ED provider got a history from the patient's of urinary frequency and urgency. Her initial UA was abnormal but had many squamous cells. We have repeated her UA and the urine culture grew yeast. Because of her DM and her skin fungus, we started Fluconazole 200 mg bid for 14 days, to treat a yeast UTI. (11) Rash Conclusion/Plan: Improved Started on POD #1 with a rash on her upper abdomen. On POD #2, the rash extended down the entire abdomen. It was raised and dark pink. It is nonpruritic. We ordered topical hydrocortisone cream for the rash. No Benadryl, since she has no pruritus.- RN spoke to pharmacist and they reviewed what her new meds were: She received several new meds, including 1 antibiotic dose, she is on new aspirin twice daily, she received hospital formulary glipizide tablets. We stopped that glipizide, ordered patient's own med glipizide. 11/ restarted hospital glipizide to rechallenge her. So far no recurrence of rash.
[2022-06-29] MEDS: amLODIPine 5 MG TABLET PO SCH (21:30)
[2022-06-29] MEDS: ATORVASTATIN 10 MG TABLET PO SCH (21:31)
[2022-06-29] MEDS: INSULIN GLARGINE-YFGN 300 UNIT/3 ML PEN SUBQ SCH (21:32)
[2022-06-30] MEDS: SODIUM CHLORIDE FLUSH 0.9% 10 ML SYRINGE IVP SCH ×2 (00:49→08:43)
[2022-06-30] MEDS: KETOROLAC 15 MG/ML VIAL IVP PRN (00:49)
[2022-06-30] MEDS: SENNA 8.6 MG TABLET PO SCH ×3 (00:50→08:41)
[2022-06-30] MEDS: ACETAMINOPHEN 500 MG TABLET PO SCH (06:34)
[2022-06-30] MEDS: INSULIN LISPRO 300 UNIT/3 ML PEN SUBQ SCH (07:43)
[2022-06-30] MEDS ORDERED: MAGNESIUM HYDROXIDE 2,400 MG/30 ML UDC PO ONE (08:00)
--- NOTE | 2022-06-30 08:05 | Discharge Plan ---
"Discharge Plan for SNF / [facility] - Discharge Plan And Transition Orders Problem Reviewed?: Yes Disposition: SNF DC/Xfer Condition: Stable Allergies and Adverse Reactions: Allergies Allergy/AdvReac Type Severity Reaction Status Date / Time No Known Drug Allergies Allergy Verified 06/21/22 04:43 Health Concerns: She is an 86-year-old female who has dementia and she lives at home with her . she is her primary caregiver. She fell in the bathroom and had left hip pain and could not weight-bear. She was brought to the emergency room where she was found to have an intertrochanteric hip fracture. She underwent an uncomplicated ORIF and a closed reduction of the left distal radius on June 21. She had a [employer] short integrated nail with 95 mm lag screw and 90 mm locking screw, distally locked with a 30 7.5 millimeter screw. She then had a wrist put in a cast on June 29. Postoperatively the patient has had mild acute blood loss anemia. Admission hemoglobin was 13.3 and she is 10.3 at discharge. There have been no other complications during her stay. She has been here longer than usual due to insurance authorization. She is otherwise stable. Plan of Treatment: During her stay she has been undergoing PT and OT therapy Sunday through Sunday. She has been progressing slowly but definitely progressing well. She is now transferred to a shelter facility to continue physical therapy and Occupational Therapy until goals are reached. During her stay, blood pressure medication needed to be changed to avoid orthostatic hypotension. Norvasc and Vesicare were both being given in the morning. Norvasc was changed from 5 mg in the morning to 2.5 mg in the morning. Valsartan was 160 mg in the morning and was changed to Cozaar 50 mg at night. During her stay she did require Lantus insulin. She is usually not on Lantus at home. She only required 10 units at night. At discharge we are stopping the Lantus and just resuming her usual home meds of glipizide and metformin. Please watch her glucose carefully to make sure she does not need to go back to taking Lantus to control her sugar. She is on Celebrex for pain relief, as well as 81 mg of aspirin twice daily for DVT prophylaxis. In order to hopefully reduce risk of nonsteroidal induced gastritis I would like her to be on Protonix for the duration of Ecotrin and Celebrex together. That would be about 6 weeks. The hospitalist that was taking care of her before I took care of her diagnosed her with a yeast UTI. She has been on Diflucan since approximately June 21. Plan was 2 weeks of Diflucan and till July 05. She developed a drug rash during her stay. It was not clear what medication did it. She is on as needed hydrocortisone cream. Since the rash is resolved I am stopping that. Care Goals: Goal is for her to be able to stand, pivot, and walk a few feet using her walker. She was independent with feeding herself prior to admission. occasionally helps with dressing because of her forgetfulness. He also occasionally helps with bathing. Once she achieves baseline goals, she is to return to living with her in their home Assessment: Patient has dementia and as such the care plan was not discussed with her. Her and power of erisa attorney has been her advocate. - SNF / [facility] Transition Orders Admit to (Facility): [facility] Discharge Diagnosis: 1. Left hip fracture 2. Fall at home 3. Orthostatic hypotension resolved 4. Hypertension 5. Left wrist Colles' fracture 6. Type 2 diabetes mellitus, controlled, without complication, not on long-term use of insulin 7. Dementia without behavioral disturbance 8. History of asthma 9. History of lung cancer, status post lung wedge resection 10. History of breast cancer, status postlumpectomy, on aromatase inhibitor 11. Yeast UTI 12. Drug rash, unknown etiology Medicare Certification Statement: I certify that Post Hospital shelter care is medically necessary on a continuing basis for any of the conditions for which she/he is receiving care during hospitalization. Notify PCP of admission and forward orders to primary provider for signature. Weight on admission and: Weekly Other Notification Orders: Call PCP immediately if patient develops dyspnea, chest pain/tightness or edema. House Bowel Program: Yes Additional Bowel Program Orders: If no BM after 2 days, nurse may give M.O.M. 30ml PO PRN and/or ducolax Supp 1 IN and/or BOUCHRA 250mg P.O., and/or senna 1-2 tabs PO. On day 3 nurse may give repeat above order until residents constipation is resolved. Annual Influenza Vaccine (between Apr 20 and November 17): Yes Two-step PPD per [employer] [id number] or approved exception documents: Yes Orthopedic Orders: -DVT prophylaxis with 81 mg of aspirin twice daily for 6 weeks (starting 06/22). -Weightbearing as tolerated to left lower extremity. - Nonweightbearing to left upper extremity. -Platform walker required for ambulation due to weightbearing status of left wrist. -Continue physical therapy and Occupational Therapy. -Mepilex dressing in place on left hip, can be removed. -Dermabond in place on left hip which will fall off on its own. - No need for suture removal from left hip. -Cast placed 06/29 on left wrist which should be left in place until follow-up in orthopedic clinic. -Follow-up at [facility] orthopedic clinic within 2 weeks of discharge from hospital (~07/14) Medication Orders: PLEASE REFER TO THE DISCHARGE MEDICATION LIST. Insulin Orders?: No - Medications New Prescriptions: Pantoprazole [Protonix] 40 mg PO DAILY #30 tablet - Diet Type: No added sugar Texture: Regular Liquids: Thin May have monthly special meal: Yes - Therapies | Activity Therapy: Evaluation | Treat if indicated: PT, OT Rehabilitation Potential: Return to independent living Activity: Wt Bearing as Tolerated Weight Bearing: Full Weight Assistance Devices: Walker Follow Up: Jared Vazquez MD (ortho) Amanda Haskins (PCP) [phone]"
[2022-06-30] MEDS: CALCIUM CARBONATE CHEW 500 MG TABLET PO SCH (08:34)
[2022-06-30] MEDS: CHOLECALCIFEROL 25 MCG TABLET PO SCH (08:34)
[2022-06-30] MEDS: CELECOXIB 100 MG CAPSULE PO SCH (08:34)
[2022-06-30] MEDS: metFORMIN 500 MG TABLET PO SCH (08:35)
[2022-06-30] MEDS: FLUCONAZOLE 100 MG TABLET PO SCH (08:36)
[2022-06-30] MEDS: PARoxetine 10 MG TABLET PO SCH (08:37)
[2022-06-30] MEDS: ENOXAPARIN 40 MG/0.4 ML SYRINGE SUBQ SCH (08:37)
[2022-06-30] MEDS: SOLIFENACIN SUCCINATE 5 MG TABLET PO SCH (08:37)
[2022-06-30] MEDS: LOSARTAN 50 MG TABLET PO SCH (08:38)
[2022-06-30] MEDS: glipiZIDE 5 MG TABLET PO SCH (08:38)
[2022-06-30] MEDS: ASPIRIN EC 81 MG TABLET PO SCH (08:38)
[2022-06-30] MEDS: DOCUSATE SODIUM 250 MG CAPSULE PO SCH (08:39)
[2022-06-30] MEDS: HYDROCORTISONE 1% CREAM 28 GM TUBE TOP SCH (08:42)
[2022-06-30] MEDS: polyethylene glycoL 3350 17 GM PACKET PO SCH (08:42)
[2022-06-30] MEDS: NYSTATIN POWDER 15 GM TOP SCH (08:42)
[2022-06-30 10:48] VITALS: BP 136/67
[2022-06-30 11:23] LABS: B. PARAPERTUSSIS- RESP PCR PAN NOT DETECTED; B. PERTUSSIS- RESP PCR PANEL NOT DETECTED; C. PNEUMONIAE- RESP PCR PANEL NOT DETECTED; CORONAVIRUS 229E-RESP PCR NOT DETECTED; CORONAVIRUS HKU1-RESP PCR NOT DETECTED; CORONAVIRUS NL63-RESP PCR NOT DETECTED; CORONAVIRUS OC43-RESP PCR NOT DETECTED; HUMAN METAPNEUMOVIRUS NOT DETECTED; INFLUENZA A- RESP PCR PANEL NOT DETECTED; INFLUENZA B - RESP PCR PANEL NOT DETECTED; M. PNEUMONIAE- RESP PCR PANEL NOT DETECTED; PARAINFLUENZA VIRUS 1 NOT DETECTED; PARAINFLUENZA VIRUS 2 NOT DETECTED; PARAINFLUENZA VIRUS 3 NOT DETECTED; PARAINFLUENZA VIRUS 4 NOT DETECTED; RHINOVIRUS/ENTEROVIRUS NOT DETECTED; RSV- RESP PCR PANEL NOT DETECTED; SARS-CoV-2 -RESP PCR PANEL NOT DETECTED
--- NOTE | 2022-06-30 14:10 | DISCHARGE SUMMARY ---
Discharge Summary Admit Date: 06/21/22 Discharge Date: 06/30/22 Discharging Provider: Pretty Phan MD Code Status: Attempt Resuscitation Condition at Discharge: Stable Discharge Disposition: 03 [facility] DC/Xfer - DIAGNOSES Discharge Diagnoses with Status of Each Condition: 1. Left hip fracture 2. Fall at home 3. Orthostatic hypotension resolved 4. Hypertension 5. Left wrist Colles' fracture 6. Type 2 diabetes mellitus, controlled, without complication, not on long-term use of insulin 7. Dementia without behavioral disturbance 8. History of asthma 9. History of lung cancer, status post lung wedge resection 10. History of breast cancer, status postlumpectomy, on aromatase inhibitor 11. Yeast UTI 12. Drug rash, unknown etiology - HPI History of Present Illness: This is an 86-year-old female who has a diagnosis of dementia and takes Aricept, she also has a history of diabetes mellitus and obesity. The patient lives at home with her . She went to the bathroom overnight and after standing up from the toilet, she does not remember how or why, but she fell to the floor. She does not think she had syncope. She cannot remember if she was dizzy. She hit the left side of her head and her left body. She was brought into the emergency room and work-up shows that she has a left wrist fracture and left hip fracture and a skin avulsion skin tear at the left sabianism. Other imaging from head down to pelvis and legs showed no other areas of trauma. Orthopedics is planning to take her to the OR for hip surgery and for management of the left wrist fracture. The Hospitalist team has been contacted for admitting this patient. Patient states that her makes a diabetic diet for them both. Patient cannot remember what medicine she takes for diabetes and states that she checks fingersticks of her glucose every morning and every night but also cannot remember any glu results whatsoever. The told the ED provider that the patient has been "going to the bathroom more often therefore she might have a U TI". I asked the patient about this and she denies any dysuria but claims there is some hematuria recently. I tried reaching the to get more details and there is no answer, I left voice message. - Past Medical History Cardiovascular: reports: Hypertension, High cholesterol Respiratory: reports: Asthma Neuro: reports: Dementia Endocrine/Autoimmune: reports: Type 2 diabetes GI: reports: None MERGERS AND ACQUISITIONS ATTORNEY: reports: None : reports: None HEENT: reports: None Psych: reports: None Musculoskeletal: reports: None Derm: reports: None MRSA Hx?: No - Past Surgical History /MERGERS AND ACQUISITIONS ATTORNEY: reports: Hysterectomy Derm: reports: Skin cancer surgery - CONSULTS | PROCEDURES Consultations: Orthopedic Surgery, Dr. Vazquez Procedures: 1. head CT was without acute intracranial abnormalities. She has a ventricular shunt. Recommend verification with neurosurgery for appropriate position of the shunt catheter. 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 2. Cervical spine CT without cervical spine fracture. Degenerative changes described. Osteopenia. 3. Chest x-ray without acute cardiopulmonary pathology. No discrepancies from preliminary reading 4. Wrist x-ray with an acute comminuted impacted and slightly displaced intra- articular fracture involving distal radius. Left side. 5. Forearm x-ray showing acute comminuted impacted and slightly displaced intra-articular fracture of the distal radius. No other fracture or dislocation seen. 6. Hip and pelvis x-ray with acute slightly impacted fracture involving the intertrochanteric region of the left proximal femur. 7. Pelvis CT with an acute slightly comminuted and minimally displaced impacted fracture through the intertrochanteric region of the left proximal femur. Osteoarthritic changes throughout the bony pelvis. No additional fracture or dislocation. Mild soft tissue swelling and edema surrounding the left intratrochanteric fracture site. No significant joint effusions. No pelvic free air. 8. Urine culture positive for yeast - HOSPITAL COURSE Hospital Course: The patient underwent an uneventful open reduction internal fixation of her hip and her wrist. She did not develop acute blood loss anemia and did not require transfusion. She progressed well with physical therapy. She was unable to be discharged expeditiously due to insurance authorization delay. Apparently she has an unusual insurance plan and trying to get local facilities to accept her for rehab was difficult. She was eventually accepted by [facility]. She was seen by orthopedics and had a cast placed on the left wrist. Discharge instructions per orthopedics were weightbearing as tolerated to the left lower extremity. Nonweightbearing to the left upper extremity. Platform walker required for ambulation due to weightbearing status of left wrist. Continue physical therapy and Occupational Therapy at rehab. Mepilex dressing in place in the left hip can be removed. Dermabond in place in the left hip which will fall off on its own. No need for suture removal from left hip. The cast that was placed on June 29 on the left wrist should be left in place until follow-up with orthopedic clinic. They are requesting a follow-up with [facility] orthopedic clinic within 2 weeks of discharge from the hospital in approximately July 14. DVT prophylaxis will be aspirin twice daily. Because of that I am starting Protonix 40 daily while she is on aspirin. During her stay pain was well controlled. She did not need many opiates. She w as maintained with diabetic control with sliding scale insulin. A yeast UTI was treated with Diflucan. She did develop a drug rash, and it was initially attributed to her sulfonylurea. Rash resolved and she was rechallenged and tolerated the resumption of the medicine without problem. At discharge she is alert, pleasant, cooperative. Temperature is 36.7. Heart rate 70. Blood pressure 136/67. Respirations 20 and she is 93% on room air. She is 5 feet 6 inches tall and weighs 98.6 kg. Left wrist is in a cast, right hip wound is closed, healed, clean without drainage or redness. Neck is supple. Lungs have diminished breath sounds at the bases but are clear. She has a regular rate and rhythm. Abdomen is soft and nontender. Last bowel movement was on the day of discharge. She has mild nonpitting edema of her lower extremities. Ecchymosis on the dorsums of her hands. While she is alert to person place and time she can be very forgetful. - ALLERGIES Allergies/Adverse Reactions: Allergies Allergy/AdvReac Type Severity Reaction Status Date / Time No Known Drug Allergies Allergy Verified 06/21/22 04:43 - MEDICATIONS Home Medications: Ambulatory Orders Medication Instructions Recorded Confirmed glipiZIDE [Glipizide] 10 mg PO DAILY 08/15/18 06/21/22 Atorvastatin [Lipitor] 20 mg PO HS 06/22/22 06/22/22 Acetaminophen [Tylenol] 1,000 mg PO TID tab 06/30/22 Aspirin EC [Ecotrin] 81 mg PO BID tab 06/30/22 Calcium Carbonate [Tums (Calcium 500 mg PO BID tab 06/30/22 Carbonate 500mg)] Celecoxib [CeleBREX] 200 mg PO BID cap 06/30/22 Cholecalciferol [Vitamin D3] 25 mcg PO DAILY tab 06/30/22 Fluconazole [Diflucan] 200 mg PO BID tab 06/30/22 Losartan [Cozaar] 50 mg PO DAILY tab 06/30/22 Mirabegron [Myrbetriq] 25 mg PO DAILY #0 06/30/22 06/22/22 Nystatin [Nystop] 1 applic TOP BID each 06/30/22 PARoxetine [Paxil] 20 mg PO DAILY #0 06/30/22 06/21/22 Pantoprazole [Protonix] 40 mg PO DAILY #30 tablet 06/30/22 amLODIPine [Norvasc] 2.5 mg PO QPM tab 06/30/22 metFORMIN [Glucophage] 500 mg PO BIDWM tab 06/30/22 - LABS Result Diagrams: 06/25/22 05:51 06/25/22 05:51
== END 2022-06-30 11:25 | DRG 516 ==
LOC: ED 04:30 → MS2 10:48
PROVIDERS: ADMIT Internal Medicine; ATTEND Specialist
PROC: 0QS504Z Reposition Left Acetabulum with Internal Fixation Device, Open Approach (ICD-10-PCS; principal; 2022-06-21 12:45)
PROC: 0PSJXZZ Reposition Left Radius, External Approach (ICD-10-PCS; 2022-06-21 12:45)
DX: S72.142A Displaced intertrochanteric fracture of left femur, initial encounter for closed fracture (principal); S52.572A Other intraarticular fracture of lower end of left radius, initial encounter for closed fracture; B37.49 Other urogenital candidiasis; S52.532A Colles' fracture of left radius, initial encounter for closed fracture; D62 Acute posthemorrhagic anemia; W18.30XA Fall on same level, unspecified, initial encounter; J44.9 Chronic obstructive pulmonary disease, unspecified; E66.9 Obesity, unspecified; Z68.34 Body mass index [BMI] 34.0-34.9, adult; R35.0 Frequency of micturition; I10 Essential (primary) hypertension; I95.1 Orthostatic hypotension; Z79.84 Long term (current) use of oral hypoglycemic drugs; J45.909 Unspecified asthma, uncomplicated; F03.90 Unspecified dementia, unspecified severity, without behavioral disturbance, psychotic disturbance, mood disturbance, and anxiety; Z85.3 Personal history of malignant neoplasm of breast; Z85.118 Personal history of other malignant neoplasm of bronchus and lung; S01.81XA Laceration without foreign body of other part of head, initial encounter; Z20.822 Contact with and (suspected) exposure to COVID-19; E11.9 Type 2 diabetes mellitus without complications; R31.9 Hematuria, unspecified; L27.0 Generalized skin eruption due to drugs and medicaments taken internally; Y92.230 Patient room in hospital as the place of occurrence of the external cause; R58 Hemorrhage, not elsewhere classified; Y92.002 Bathroom of unspecified non-institutional (private) residence as the place of occurrence of the external cause; I45.10 Unspecified right bundle-branch block; R26.9 Unspecified abnormalities of gait and mobility; Z90.2 Acquired absence of lung [part of]; R60.0 Localized edema; T50.905A Adverse effect of unspecified drugs, medicaments and biological substances, initial encounter
CPT/HCPCS: 36415; 70450; 71045; 72125; 72192; 73090; 73110; 73502; 80048; 80053; 81001; 83036; 83690; 83735; 85025; 87086; 87633; 87635; 90471; 90715; 93005; 97110; 97162; 97166; 97530; 97535; 99283; 99285; A9270; J0131; J0690; J1650; J1815; J2795; J7040; J7120; 81003

== ENCOUNTER 2022-07-06 12:55 | Outpatient (CLI) | payer MEDICARE ==
--- NOTE | 2022-07-06 12:47 | XRAY Report ---
PROCEDURE: Wrist 3 View LT INDICATIONS: LEFT WRIST FRACTURE TECHNIQUE: 5 views of the wrist were acquired. COMPARISON: 06/21/2022 FINDINGS: Bones: Generalized decreased osseous mineralization present. Distal radial impacted comminuted fractu re noted with lateral and volar displacement of the distal fracture fragment by one bone diameter. Th e bone details obscured by overlying fiberglass cast Soft tissues: No suspicious soft tissue calcifications. IMPRESSION: Displaced impacted distal radial fracture in cast Osteopenia Reviewed by: James Sandhu MD on 07/06/2022 11:45 AM [place] Approved by: James Sandhu MD on 07/06/2022 11:[address] [facility] Station ID: [id number]
== END 2022-07-06 12:56 | disposition home or self-care (01) ==
LOC: DI.WOS 12:55
PROVIDERS: ATTEND Orthopaedic Surgery
DX: S52.502D Unspecified fracture of the lower end of left radius, subsequent encounter for closed fracture with routine healing (principal); M85.88 Other specified disorders of bone density and structure, other site

== ENCOUNTER 2022-08-06 08:00 | Outpatient (CLI) | payer MEDICARE ==
[2022-08-06 17:47] LABS: CORONAVIRUS 229E-RESP PCR NOT DETECTED; CORONAVIRUS HKU1-RESP PCR NOT DETECTED; CORONAVIRUS NL63-RESP PCR NOT DETECTED; CORONAVIRUS OC43-RESP PCR NOT DETECTED
[2022-08-06 17:48] LABS: B. PARAPERTUSSIS- RESP PCR PAN NOT DETECTED; B. PERTUSSIS- RESP PCR PANEL NOT DETECTED; C. PNEUMONIAE- RESP PCR PANEL NOT DETECTED; HUMAN METAPNEUMOVIRUS NOT DETECTED; INFLUENZA A- RESP PCR PANEL NOT DETECTED; INFLUENZA B - RESP PCR PANEL NOT DETECTED; M. PNEUMONIAE- RESP PCR PANEL NOT DETECTED; PARAINFLUENZA VIRUS 1 NOT DETECTED; PARAINFLUENZA VIRUS 2 NOT DETECTED; PARAINFLUENZA VIRUS 3 NOT DETECTED; PARAINFLUENZA VIRUS 4 NOT DETECTED; RHINOVIRUS/ENTEROVIRUS NOT DETECTED; RSV- RESP PCR PANEL DETECTED; SARS-CoV-2 -RESP PCR PANEL NOT DETECTED
== END 2022-08-06 23:59 | disposition home or self-care (01) ==
LOC: LAB.R 08:00
PROVIDERS: ATTEND Internal Medicine
DX: R05.1 Acute cough (principal); Z20.822 Contact with and (suspected) exposure to COVID-19
CPT/HCPCS: 87633

== ENCOUNTER 2022-08-14 13:32 | Outpatient (CLI) | payer MEDICARE | END 2022-08-14 13:33 | disposition critical access hospital (66) | LOC: EMS 13:32 | DX: R06.02 Shortness of breath (principal); R06.2 Wheezing | CPT/HCPCS: A0425; A0427 ==

== ENCOUNTER 2022-08-14 13:36 | Emergency (ER) | payer MEDICARE ==
[2022-08-14] MEDS ORDERED: iohexoL-300 100 ML VIAL ONE (14:00)
--- NOTE | 2022-08-14 14:01 | ED Physician Documentation ---
History of Present Illness - Stated complaint Stated Complaint: SOA - Additonal information Additional information: 87-year-old female was brought to the emergency department from [facility] for evaluation of increasing respiratory distress and hypoxia. She recently tested positive for RSV on 06 August and had been managed with as needed albuterol treatments at her care facility but over the last 24 hours she has been having increasing dyspnea and they noted oxygen saturations less than 90% therefore she is transported to the ER. This unfortunate lady was recently hospitalized after a fall at home in which she sustained a left hip and a left wrist fracture. She was hospitalized here and underwent ORIF of both her wrist and hip. She was subsequently discharged to [facility] on 05 July where she has been since. She does have a history of dementia and takes Aricept. She also has a history of diabetes and obesity. Much of the history is obtained [facility] and EMS as the patient is confused On presentation here to the emergency department she does not appear to be in any respiratory distress. She is pleasantly confused is uncertain of where she is at or why. When asked if she is having trouble breathing she says perhaps a little. She denied chest pain. Room air saturations were 87 to 88%. She was placed on 2 L nasal cannula. EMS did give the patient albuterol in route. On my auscultation she sounds relatively clear. Review of Systems Unable to obtain: Confused, Dementia, Other (As per HPI) PD PAST MEDICAL HISTORY - Past Medical History Cardiovascular: Hypertension, High cholesterol Respiratory: Asthma Neuro: Dementia Endocrine/Autoimmune: Type 2 diabetes GI: None, GERD SECRET CODE EXPERT: None : Incontinence, Frequency HEENT: None Psych: None Musculoskeletal: None Derm: Other - Past Surgical History Past Surgical History: Yes General: Appendectomy, Other /SECRET CODE EXPERT: Hysterectomy, Other Neuro: Craniotomy Derm: Skin cancer surgery - Present Medications Home Medications: Ambulatory Orders Medication Instructions Recorded Confirmed glipiZIDE [Glipizide] 10 mg PO DAILY 08/15/18 06/21/22 Atorvastatin [Lipitor] 20 mg PO HS 06/22/22 06/22/22 Acetaminophen [Tylenol] 1,000 mg PO TID tab 06/30/22 Aspirin EC [Ecotrin] 81 mg PO BID tab 06/30/22 Calcium Carbonate [Tums (Calcium 500 mg PO BID tab 06/30/22 Carbonate 500mg)] Celecoxib [CeleBREX] 200 mg PO BID cap 06/30/22 Cholecalciferol [Vitamin D3] 25 mcg PO DAILY tab 06/30/22 Fluconazole [Diflucan] 200 mg PO BID tab 06/30/22 Losartan [Cozaar] 50 mg PO DAILY tab 06/30/22 Mirabegron [Myrbetriq] 25 mg PO DAILY #0 06/30/22 06/22/22 Nystatin [Nystop] 1 applic TOP BID each 06/30/22 PARoxetine [Paxil] 20 mg PO DAILY #0 06/30/22 06/21/22 Pantoprazole [Protonix] 40 mg PO DAILY #30 tablet 06/30/22 amLODIPine [Norvasc] 2.5 mg PO QPM tab 06/30/22 metFORMIN [Glucophage] 500 mg PO BIDWM tab 06/30/22 Apixaban [Eliquis] 5 mg PO BID #74 tablet 08/14/22 Cefpodoxime Proxetil [Vantin] 100 mg PO Q12H #10 tablet 08/14/22 Molnupiravir [Molnupiravir (Eua)] 1 bottle PO DAILY #1 pkt 08/14/22 - Allergies Allergies/Adverse Reactions: Allergies Allergy/AdvReac Type Severity Reaction Status Date / Time No Known Drug Allergies Allergy Verified 08/14/22 13:52 - Social History Does the pt smoke?: No Smoking Status: Unknown if ever smoked Does the pt drink ETOH?: Yes Does the pt have substance abuse?: No - Immunizations Immunizations are current?: Yes - POLST Patient has POLST: No PD ED PE EXPANDED - General General: Alert, No acute distress, Other (Obese) - Cardiac Cardiac: Regular Rate, Murmur Present, Radial strong equal, Pedal strong equal, Cap refill < 2 sec - Respiratory Respiratory: Clear to ausultation nisreen. No: Distress, Labored, Wheezing - Abdomen Abdomen: Normal Bowel sounds. No: Tender to palpation - Derm Derm: Normal color, Warm and dry, Other (Incisions on the left lateral hip are healed, clean, dry and intact without secondary findings of erythema drainage or infection) Results - Vitals Vitals: Vital Signs - 24 hr 08/14/22 08/14/22 13:52 15:40 Temperature 37.3 C Heart Rate 90 69 Respiratory 20 19 Rate Blood Pressure 159/80 H O2 Saturation 88 L If not protocol 3 : Oxygen Flow, liters/minute Oxygen O2 Source Nasal cannula - Labs Labs: Laboratory Tests 08/14/22 08/14/22 08/14/22 14:07 14:35 14:35 WBC 6.0 RBC 3.66 L Hgb 11.7 L Hct 38.1 MCV 104.1 H MCH 32.0 H MCHC 30.7 L RDW 13.6 Plt Count 153 MPV 10.8 Neut # (Auto) 4.4 Lymph # (Auto) 1.0 L [place] # (Auto) 0.5 Eos # (Auto) 0.1 Baso # (Auto) 0.0 Absolute Nucleated RBC 0.00 Nucleated RBC % 0.0 Sodium 143 Potassium 4.0 Chloride 108 Carbon Dioxide 23 Anion Gap 12.0 BUN 14 Creatinine 0.6 Estimated GFR (MDRD) 94 Glucose 106 H Calcium 9.6 Total Bilirubin 1.3 H AST 29 ALT 14 Alkaline Phosphatase 95 B-Natriuretic Peptide 131 H Total Protein 6.2 L Albumin 3.5 Globulin 2.7 Albumin/Globulin Ratio 1.3 Lipase 30 Urine Color Urine Clarity Urine pH Ur Specific [place] Urine Protein Urine Glucose (UA) Urine Ketones Urine Occult Blood Urine Nitrite Urine Bilirubin Urine Urobilinogen Ur Leukocyte Esterase Urine RBC Urine WBC Ur Squamous Epith Cells Urine Bacteria Ur Microscopic Review Urine Culture Comments 08/14/22 14:35 WBC RBC Hgb Hct MCV MCH MCHC RDW Plt Count MPV Neut # (Auto) Lymph # (Auto) [place] # (Auto) Eos # (Auto) Baso # (Auto) Absolute Nucleated RBC Nucleated RBC % Sodium Potassium Chloride Carbon Dioxide Anion Gap BUN Creatinine Estimated GFR (MDRD) Glucose Calcium Total Bilirubin AST ALT Alkaline Phosphatase B-Natriuretic Peptide Total Protein Albumin Globulin Albumin/Globulin Ratio Lipase Urine Color YELLOW Urine Clarity SL. CLOUDY Urine pH 6.0 Ur Specific [place] 1.020 Urine Protein NEGATIVE Urine Glucose (UA) NEGATIVE Urine Ketones NEGATIVE Urine Occult Blood NEGATIVE Urine Nitrite POSITIVE H Urine Bilirubin NEGATIVE Urine Urobilinogen >=8.0 H Ur Leukocyte Esterase SMALL H Urine RBC 0-5 Urine WBC >25 H Ur Squamous Epith Cells FEW Squamous Urine Bacteria Moderate H Ur Microscopic Review INDICATED Urine Culture Comments INDICATED - Rads (name of study) cxr Radiology: Final report received (Question pulmonary arterial hypertension. No evidence of acute pulmonary process) CT chest Radiology: Final report received (Concern for small subsegmental pulmonary emboli. Nodular opacities in the right lung. Findings of prior lobectomy. Small bilateral pleural effusions) PD Medical Decision Making - ED course Complexity details: reviewed results, re-evaluated patient, considered differential, d/w patient, d/w family ED course: 87-year-old female who has a history of dementia presents the emergency department from her care facility for evaluation of hypoxia over the last few days. On 06 August she did test positive for RSV and they have been managing her with as needed albuterol but despite the treatment she continued to have intermittent hypoxia with saturations down to 87% on room air. She was hospitalized in mid June with a left hip fracture. She also has a known history of lung cancer. Here in the emergency department we did obtain a CBC that showed no worrisome findings. Her electrolytes were also without acute derangement. Her urine however which was not in and out catheterization does show acute infection. The hypoxia however was concerning given recent hospitalization we proceeded to do a CT of the chest which did show bilateral subsegmental pulmonary emboli. Chest x-ray as well as a PE without findings of pneumonia. She was not wheezy or rhonchorous. I did discuss the findings of the PE with the patient's CATHY Lofton. He was able to talk with his brother as well as the patient's and they would like to institute treatment for the PE with Eliquis. We did discuss the risks and benefits associated with this. We will also start the patient on Vantin for her urinary tract infection. She is incidentally found to be COVID-positive. I do not think that the COVID is affecting her pulmonary status that she has no findings suggest COVID-pneumonia. However she will be discharged with a prescription for Molnupiravir as well. The patient is to follow closely with her oncologist Dr. Harper For longer-term management of her lung cancer. The etiology of the PE may be multifactorial from recent hospitalization as well as the cancer history. Patient remains no CPR but partial interventions Departure - Departure Disposition: 01 Home, Self Care Clinical Impression: Bilateral pulmonary embolism, COVID-19 Lung cancer Qualifiers: Laterality: unspecified laterality Lung location: unspecified part of lung Qualified Code(s): C34.90 - Malignant neoplasm of unspecified part of unspecified bronchus or lung Acute cystitis Qualifiers: Hematuria presence: without hematuria Qualified Code(s): N30.00 - Acute cystitis without hematuria Condition: Poor Instructions: Embolism Pulmonary Dc Prescriptions: Apixaban [Eliquis] 5 mg PO BID #74 tablet Molnupiravir [Molnupiravir (Eua)] 1 bottle PO DAILY #1 pkt Cefpodoxime Proxetil [Vantin] 100 mg PO Q12H #10 tablet Comments: Terri came to the emergency department today because she has had low oxygen levels. She does have pulmonary embolism in both lungs. In order to continue to manage this we will start her on Eliquis. This is an anticoagulant. She will take 10 mg twice daily for 7 days then 5 mg twice daily. She likely needs to be on this for 3 to 6 months. It is important to discuss this with her oncologist Dr. Harper. If she has any falls, has black or bloody stools, any fainting she should return immediately to the emergency department. She will need to remain on the oxygen while at [facility] for at least a few weeks. It may take this long for the blood clots to begin to resolve. Chest x-rays show no findings of pneumonia. She also has a urinary tract infection and a prescription for Vantin has been sent to her preferred pharmacy. Unfortunately she is also tested positive for COVID-19. I have sent a prescription for Molnupiravir to her pharmacy.
--- NOTE | 2022-08-14 14:13 | XRAY Report ---
PROCEDURE: Chest 1 View X-Ray INDICATIONS: chest pain TECHNIQUE: One view of the chest was acquired. COMPARISON: 06/21/2022 FINDINGS: Surgical changes and devices: None. Lungs and pleura: No pleural effusions or pneumothorax. Lungs are clear. Mediastinum: Mediastinal contours appear normal. Heart size is normal. Prominent central hilar ves sels may indicate pulmonary arterial hypertension. Bones and chest wall: No suspicious bony lesions. Overlying soft tissues appear unremarkable. IMPRESSION: Question pulmonary arterial hypertension. No evidence of acute pulmonary process. Reviewed by: John Swan MD on 08/14/2022 2:12 PM PST Approved by: John Swan MD on 08/14/2022 2:12 PM PST Station ID: [id number]
[2022-08-14 14:28] LABS: ALBUMIN 3.5 g/dL (3.2-5.5); ALBUMIN/GLOBULIN RATIO 1.3 (1.0-2.2); BILIRUBIN,TOTAL 1.3 mg/dL (0.2-1.0); CALCIUM 9.6 mg/dL (8.5-10.3); CREATININE 0.6 mg/dL (0.4-1.0); TOTAL PROTEIN 6.2 g/dL (6.7-8.2)
[2022-08-14 14:45] LABS: BASOPHILS % (AUTO) 0.2 %; EOSINOPHILS # (AUTO) 0.1 10^3/uL (0.0-0.7); HCT - HEMATOCRIT 38.1 % (37.0-47.0); HGB - HEMOGLOBIN 11.7 g/dL (12.0-16.0); LYMPHOCYTES % (AUTO) 16.6 %; MEAN CORPUSCULAR HGB CONC 30.7 g/dL (32.0-36.0); MEAN CORPUSCULAR VOLUME 104.1 fL (81.0-99.0); MEAN PLATELET VOLUME 10.8 fL (7.9-10.8); MONOCYTES # (AUTO) 0.5 10^3/uL (0.0-1.0); MONOCYTES % (AUTO) 7.5 %; NEUTROPHILS # (AUTO) 4.4 10^3/uL (1.5-6.6); NEUTROPHILS % (AUTO) 73.4 %; PLT - PLATELET COUNT 153 10^3/uL (130-450); RED BLOOD COUNT 3.66 10^6/uL (4.20-5.40); RED CELL DISTRIBUTION WIDTH 13.6 % (12.0-15.0)
[2022-08-14 14:47] LABS: BILIRUBIN,URINE NEGATIVE (NEGATIVE); GLUCOSE, URINE (UA) NEGATIVE (NEGATIVE); KETONES,URINE (UA) NEGATIVE (NEGATIVE); LEUKOCYTE ESTERASE, URINE SMALL (NEGATIVE); NITRITE,URINE POSITIVE (NEGATIVE); OCCULT BLOOD,URINE NEGATIVE (NEGATIVE); PROTEIN,URINE NEGATIVE (NEGATIVE); UROBILINOGEN,URINE >=8.0 E.U./dL (NORMAL)
[2022-08-14] MEDS ORDERED: ALBUTEROL NEB 2.5 MG/3 ML INH STA (14:50)
[2022-08-14 14:58] LABS: CLARITY,URINE SL. CLOUDY (CLEAR); RBC,URINE 0-5 /HPF (0-5); WBC,URINE >25 /HPF (0-5)
[2022-08-14 14:59] LABS: BACTERIA,URINE Moderate /HPF (None Seen); SQUAMOUS EPITHELIAL CELL,UR FEW Squamous (<= Few)
[2022-08-14] MEDS ORDERED: iohexoL-300 100 ML VIAL IVP ONE (15:12)
--- NOTE | 2022-08-14 15:39 | CT Report ---
PROCEDURE: ANGIO CHEST W/WO INDICATIONS: hypoxia; ? PE CONTRAST: 80ml Omnipaque 300 TECHNIQUE: After the administration of intravenous contrast, 2 mm axial images were acquired from the pulmonary apices to the posterior costophrenic angles during the arterial phase. In addition, 1 mm lung kernel and 5 mm soft tissue kernel reconstructions were performed. 3-dimensional coronal oblique maximum int ensity projection (MIP) reformats, 8 mm axial MIP, and 5 mm coronal and sagittal MPR reformats were t hen performed through the thorax. For radiation dose reduction, the following was used: automated exp osure control, adjustment of mA and/or kV according to patient size. COMPARISON: CXR earlier today. CT cervical spine and CXR 06/21/2022. FINDINGS: Image quality: Fair. Pulmonary arteries: No central pulmonary embolism. Concern for subsegmental pulmonary emboli, right l ower lobe (5/87); right upper lobe (5/70), left upper lobe (5/61). Pulmonary arteries are normal in d iameter. No right heart strain. RV LV ratio 0.61. Lungs and pleura: Suture material in the right upper lobe. There is nodular opacity subpleural in th e right upper lobe, (6/106). Nodular opacity in the right lower lobe measuring 2.5 cm. Minimal opacit y in the left lower lobe. Airways are clear. Small bilateral pleural effusions. No pneumothorax. Mediastinum: Heart size is normal, without pericardial effusion. Three-vessel coronary artery calci fications. No mediastinal or hilar adenopathy. Right upper paratracheal node measuring 0.8 cm short a xis diameter, unchanged. Thoracic aorta is normal in caliber and enhancement. Esophagus is normal in caliber, without hiatal hernia. Bones and chest wall: No suspicious bony lesions. Bridging vertebral body osteophytes. Ribs and tho racic spine appear intact throughout. No axillary or supraclavicular adenopathy. Left thyroid nodule measuring 1.3 cm, (5/21). Abdomen: Visualized upper abdominal solid organs appear normal in the early arterial phase of enhanc ement. IMPRESSION: Image quality is fair. 1. No central pulmonary embolism. Concern for small subsegmental pulmonary emboli. 2. Nodular opacities in the right lung. Findings of prior partial lobectomy. Recommend follow-up CT c hest or short-term follow-up CT chest to evaluate these potential nodules if clinically indicated. 3. Small bilateral pleural effusions. Results were communicated to Danelle Thomas at 08/14/2022 3:38 PM PST. Reviewed by: Armani Bashir MD on 08/14/2022 3:38 PM PST Approved by: Armani Bashir MD on 08/14/2022 3:38 PM PST Station ID: [id number]
[2022-08-14] MEDS ORDERED: cefTRIAXone 1 GM VIAL IVP STA (16:01)
[2022-08-14] MEDS ORDERED: APIXABAN 5 MG TABLET PO STA (16:24)
[2022-08-14 16:27] LABS: CORONAVIRUS 229E-RESP PCR NOT DETECTED; CORONAVIRUS HKU1-RESP PCR NOT DETECTED; CORONAVIRUS NL63-RESP PCR NOT DETECTED; CORONAVIRUS OC43-RESP PCR NOT DETECTED
[2022-08-14 16:30] LABS: HUMAN METAPNEUMOVIRUS NOT DETECTED; INFLUENZA A- RESP PCR PANEL NOT DETECTED; INFLUENZA B - RESP PCR PANEL NOT DETECTED; PARAINFLUENZA VIRUS 1 NOT DETECTED; PARAINFLUENZA VIRUS 2 NOT DETECTED; PARAINFLUENZA VIRUS 3 NOT DETECTED; PARAINFLUENZA VIRUS 4 NOT DETECTED; RHINOVIRUS/ENTEROVIRUS NOT DETECTED; RSV- RESP PCR PANEL NOT DETECTED; SARS-CoV-2 -RESP PCR PANEL DETECTED
[2022-08-14 16:31] LABS: B. PARAPERTUSSIS- RESP PCR PAN NOT DETECTED; B. PERTUSSIS- RESP PCR PANEL NOT DETECTED; C. PNEUMONIAE- RESP PCR PANEL NOT DETECTED; M. PNEUMONIAE- RESP PCR PANEL NOT DETECTED
[2022-08-14 17:46] VITALS: BP 158/78
== END 2022-08-14 17:46 | disposition home or self-care (01) ==
LOC: EDUNIT# → ED 13:36
DX: I26.99 Other pulmonary embolism without acute cor pulmonale (principal); U07.1 COVID-19; N30.00 Acute cystitis without hematuria; C34.90 Malignant neoplasm of unspecified part of unspecified bronchus or lung; F03.90 Unspecified dementia, unspecified severity, without behavioral disturbance, psychotic disturbance, mood disturbance, and anxiety; Z74.01 Bed confinement status
CPT/HCPCS: 36415; 51701; 80053; 81001; 81003; 83690; 83880; 85025; 87086; 87181; 87633; 94640; 99284

== ENCOUNTER 2022-08-14 17:50 | Outpatient (CLI) | payer MEDICARE | END 2022-08-14 17:51 | disposition home or self-care (01) | LOC: EMS 17:50 | PROVIDERS: ATTEND Registered Nurse | DX: R41.0 Disorientation, unspecified (principal); U07.1 COVID-19 | CPT/HCPCS: A0425; A0428 ==

== ENCOUNTER 2022-08-14 20:11 | Outpatient (CLI) | payer MEDICARE | END 2022-08-14 20:12 | disposition critical access hospital (66) | LOC: EMS 20:11 | DX: R06.02 Shortness of breath (principal) | CPT/HCPCS: A0425; A0429 ==

== ENCOUNTER 2022-08-14 20:15 | Emergency (ER) | payer MEDICARE ==
[2022-08-14] MEDS ORDERED: ALBUTEROL NEB 2.5 MG/3 ML INH STA (20:37)
[2022-08-14] MEDS ORDERED: METOPROLOL 5 MG/5 ML VIAL IVP STA ×2 (20:42→21:05)
--- NOTE | 2022-08-14 20:48 | ED Physician Documentation ---
History of Present Illness - Stated complaint Stated Complaint: SOA - Chief complaint Chief Complaint: Resp - Additonal information Additional information: 87-year-old female returns to the emergency department reportedly for shortness of air. I saw this patient earlier this afternoon when she was transported here from [facility] for shortness of air. She had been diagnosed with RSV on 06 August and had been managed with as needed albuterol treatments at her care facility. However they had noticed that her saturations on room air were about 87% and they were having to give her oxygen more frequently than they anticipated that she was transported here. She was recently hospitalized for a fall and left hip fracture in mid June. During her work-up here earlier in the emergency department she was found to have COVID however there were no findings of pneumonia on either chest x-ray or the subsequent CT scan that was completed which showed bilateral subsegmental Pulmonary embolism. There were no findings of heart strain on the CT scan. Patient does have a known history of lung cancer. It is not clear to us at this time if these PEs are secondary to the known history of lung cancer or if they are associated with her recent hospitalization. However I did have many phone conversations with the patient's DPOA her son Jameel who indicated that he would like treatment for the pulmonary embolisms and we gave her an initial dose of Eliquis here in the emergency department. She returned to [facility] and per the nursing staff there they found that she still required oxygen and the patient stated she was short of air. They did not administer any albuterol and they did not attempt to increase her oxygen requirements and she was instead brought back to the ER. It should be noted that after discharge from the emergency department earlier this afternoon I did speak on the phone with her primary care provider. He was made aware of the pulmonary embolism as well as the diagnosis of COVID and urinary tract infection. On presentation here to the emergency department the patient is awake. She reports that she feels short of air. Her room air saturations are 97%. I do note that she has atrial fibrillation on the monitor at a variable rate of 110- 120 which does appear to be a new finding. However we have started anticoagulation. 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 : Incontinence, Frequency HEENT: None Psych: None Musculoskeletal: None Derm: Other - Past Surgical History Past Surgical History: Yes General: Appendectomy, Other /BROADCAST CHIEF ENGINEER: Hysterectomy, Other Neuro: Craniotomy Derm: Skin cancer surgery - Present Medications Home Medications: Ambulatory Orders Medication Instructions Recorded Confirmed glipiZIDE [Glipizide] 10 mg PO DAILY 08/15/18 06/21/22 Atorvastatin [Lipitor] 20 mg PO HS 06/22/22 06/22/22 Acetaminophen [Tylenol] 1,000 mg PO TID tab 06/30/22 Aspirin EC [Ecotrin] 81 mg PO BID tab 06/30/22 Calcium Carbonate [Tums (Calcium 500 mg PO BID tab 06/30/22 Carbonate 500mg)] Celecoxib [CeleBREX] 200 mg PO BID cap 06/30/22 Cholecalciferol [Vitamin D3] 25 mcg PO DAILY tab 06/30/22 Fluconazole [Diflucan] 200 mg PO BID tab 06/30/22 Losartan [Cozaar] 50 mg PO DAILY tab 06/30/22 Mirabegron [Myrbetriq] 25 mg PO DAILY #0 06/30/22 06/22/22 Nystatin [Nystop] 1 applic TOP BID each 06/30/22 PARoxetine [Paxil] 20 mg PO DAILY #0 06/30/22 06/21/22 Pantoprazole [Protonix] 40 mg PO DAILY #30 tablet 06/30/22 amLODIPine [Norvasc] 2.5 mg PO QPM tab 06/30/22 metFORMIN [Glucophage] 500 mg PO BIDWM tab 06/30/22 Apixaban [Eliquis] 5 mg PO BID #74 tablet 08/14/22 Cefpodoxime Proxetil [Vantin] 100 mg PO Q12H #10 tablet 08/14/22 Metoprolol Tartrate [Lopressor] 25 mg PO BID #60 tablet 08/14/22 Molnupiravir [Molnupiravir (Eua)] 1 bottle PO DAILY #1 pkt 08/14/22 - Allergies Allergies/Adverse Reactions: Allergies Allergy/AdvReac Type Severity Reaction Status Date / Time No Known Drug Allergies Allergy Verified 08/14/22 20:27 - Social History Does the pt smoke?: No Smoking Status: Unknown if ever smoked Does the pt drink ETOH?: Yes Does the pt have substance abuse?: No - Immunizations Immunizations are current?: Yes - POLST Patient has POLST: No PD ED PE EXPANDED - General General: Alert - Cardiac Cardiac: Irregularly irregular, Murmur Present, Radial strong equal, Pedal strong equal, Cap refill < 2 sec - Respiratory Respiratory: Clear to ausultation nisreen, Other (Saturating 97% on 2 L nasal cannula. No tachypnea. She appears to be in no respiratory distress). No: Distress, Labored - Abdomen Abdomen: Normal Bowel sounds. No: Tender to palpation - Neuro Neuro: Confused, CNII-XII intact - GCS Eye Opening: Spontaneous Motor: Obeys Commands Verbal: Confused Total: 14 Results - Vitals Vitals: Vital Signs - 24 hr 08/14/22 08/14/22 08/14/22 20:24 21:00 21:14 Temperature 36.1 C L 37.2 C Heart Rate 116 H 91 88 Respiratory 36 H 20 22 Rate Blood Pressure 161/116 H 151/82 H O2 Saturation 99 98 If not protocol 2 2 : Oxygen Flow, liters/minute Oxygen O2 Source Nasal cannula Oxygen Flow Rate 2 - EKG (time done) 2106 Rate: Rate (enter#) (86) Rhythm: NSR Intervals: RBBB Compare to prior EKG: Unchanged from prior EKG (Sinus rhythm with frequent PACs.) PD Medical Decision Making - ED course Complexity details: reviewed results, re-evaluated patient, considered differential, d/w patient, d/w obiee consultant ED course: 87-year-old female was returned to the emergency department from [facility] for concerns of hypoxia. Seen earlier in this emergency department and found to have bilateral subsegmental PEs without findings of right heart strain on CT. She had been having some hypoxia in the previous few days which had previously been assumed to be due to RSV. However given her recent hospitalization for a left hip fracture I did pursue CT imaging of her chest which confirmed the pulmonary embolism. I did start anticoagulation with Eliquis and her first dose was given tonight in the emergency department. I also discussed this case with Dr. Adasm her oncologist. During the previous ED visit she also tested positive for COVID-[address] scan showed no findings of pneumonia. She also was incidentally found to have acute cystitis and a prescription for Vantin was sent to the pharmacy. The care staff at the nursing facility seemed uncomfortable with the need to adjust oxygen for saturations of 92%. They also did not give albuterol which may have been helpful in the setting of COVID-19. I have reevaluated the patient and she is alert and well-appearing. She is saturating 97% on 2 L. Her Lung sounds are quite clear. We did note that she has atrial fibrillation which does appear to be a new finding in comparison to recent hospitalization. I suspect that this is secondary to the COVID as well as the pulmonary embolism. But given that she is already anticoagulated we simply need to ensure that she has appropriate rate control. Initially on presentation she had a rate of 110-1 20. She was administered 5 mg of metoprolol and her rate declined to 90. She vacillates between sinus and atrial fibrillation. As it is easy to achieve rate control and her we will start her on metoprolol tartrate 25 mg twice daily. I have briefly discussed this case with the on-call provider for [facility] Marshall Freed who is an GERIATRIC PHYSICIAN. She is going to write some oxygen titration orders for the care facility. The patient will need to continue to follow with cardiology as an outpatient. But at this time there is no further treatment that should be necessary in the emergency department and the patient does not need to be admitted to the hospital. The care facility can continue to administer oxygen for mild hypoxia. She is being anticoagulated for her pulmonary embolism. There were no findings of pneumonia on chest x-ray. She can continue to receive the Vantin already prescribed for her acute cystitis. Departure - Departure Disposition: 01 Home, Self Care Clinical Impression: Hypoxia, COVID-19 Atrial fibrillation Qualifiers: Atrial fibrillation type: unspecified chronic Qualified Code(s): I48.20 - Chronic atrial fibrillation, unspecified Pulmonary embolism Qualifiers: Pulmonary embolism type: unspecified Chronicity: acute Acute cor pulmonale presence: without acute cor pulmonale Qualified Code(s): I26.99 - Other pulmonary embolism without acute cor pulmonale Condition: Stable Record reviewed to determine appropriate education?: Yes Instructions: Atrial Fibrillation Dc Prescriptions: Metoprolol Tartrate [Lopressor] 25 mg PO BID #60 tablet Comments: Terri came back to the emergency department for concerns of difficulty breathing and low oxygen levels. She does have bilateral subsegmental pulmonary embolism. She will be requiring extra oxygen for at least a few weeks. Her nasal cannula oxygen can be titrated from 2 to 6 L to keep her saturations 92% or better. Until the pulmonary embolisms begin to resolve she will require more frequent respiratory interventions such as adjustment of her nasal cannula or administration of her albuterol because of the COVID-19 infection. However she does not not have pneumonia. I had ordered a medication called Molnupiravir, Which is an antiviral used in the treatment of COVID-19, and that should be arriving from her pharmacy. When she came back to the ER today she was found to have atrial fibrillation. This is most likely because of the pulmonary embolism and COVID-19. Her heart rate is well controlled. I have ordered a new medication called metoprolol. She should be administered 25 mg twice daily. She is anticoagulated with the Eliquis that was ordered earlier in the ED visit. She should continue to take the Vantin that was ordered in the previous ER visit for her acute cystitis. She will need to follow very closely with her oncologist for longer-term management of her known lung cancer as well as the new diagnosis of pulmonary embolism. He can help determine how long she will need to be on anticoagulation. She should also be referred for an echocardiogram And follow closely with her warm in because of the pulmonary embolism and because she goes in and out of atrial fibrillation.
[2022-08-14] MEDS ORDERED: METOPROLOL TARTRATE 50 MG TABLET PO STA ×2 (20:56→21:12)
[2022-08-14 21:55] VITALS: BP 151/98
== END 2022-08-14 21:54 | disposition home or self-care (01) ==
LOC: EDUNIT# → ED 20:15
DX: R09.02 Hypoxemia (principal); U07.1 COVID-19; I48.20 Chronic atrial fibrillation, unspecified; I26.99 Other pulmonary embolism without acute cor pulmonale; Z99.81 Dependence on supplemental oxygen; N30.00 Acute cystitis without hematuria; C34.90 Malignant neoplasm of unspecified part of unspecified bronchus or lung; F03.90 Unspecified dementia, unspecified severity, without behavioral disturbance, psychotic disturbance, mood disturbance, and anxiety; Z74.01 Bed confinement status
CPT/HCPCS: 36415; 51701; 71045; 71275; 80053; 81001; 83690; 83880; 85025; 87086; 87181; 87633; 93005; 94640; 96374; 99283; 99284; A9270; Q9967; 81003

== ENCOUNTER 2022-08-14 22:03 | Outpatient (CLI) | payer MEDICARE | END 2022-08-14 22:04 | disposition home or self-care (01) | LOC: EMS 22:03 | PROVIDERS: ATTEND Registered Nurse | DX: R41.0 Disorientation, unspecified (principal); U07.1 COVID-19 | CPT/HCPCS: A0425; A0428 ==

== ENCOUNTER 2022-08-29 15:23 | Outpatient (CLI) | payer MEDICARE ==
--- NOTE | 2022-08-29 15:28 | XRAY Report ---
PROCEDURE: Hip 2 View LT INDICATIONS: LEFT HIP ORIF TECHNIQUE: Three views of the hip were acquired. COMPARISON: 06/21/2022 CT pelvis FINDINGS: Post surgical changes of left femoral neck ORIF by means of short intramedullary zahraa with compression screws traversing the femoral neck and a distal interlocking screw. Hardware is in expected normal p osition. No unexpected or acute complicating hardware finding. Fracture appears almost entirely heale d with only a short residual lucency seen in the anterior femoral neck region. IMPRESSION: Postsurgical changes of left hip ORIF with nearly complete healing of left femoral neck fracture frag ments. Reviewed by: Sixto Lozano MD on 08/29/2022 3:26 PM PST Approved by: Sixto Lozano MD on 08/29/2022 3:26 PM PST Station ID: [id number]
--- NOTE | 2022-08-29 17:09 | XRAY Report ---
PROCEDURE: Wrist 3 View LT INDICATIONS: LEFT WRIST FRACTURE TECHNIQUE: 3 views of the wrist were acquired. COMPARISON: X-ray rest 07/06/2022. FINDINGS: Bones: There is a comminuted, impacted and displaced distal radial fracture. There is intra-articular extension. Marked radiocarpal narrowing is present. Alignment is stable. No appreciable interval hea ling. Diffuse osteopenia is present. Soft tissues: No suspicious soft tissue calcifications. IMPRESSION: Stable alignment of previously identified comminuted and displaced distal radial fracture. Reviewed by: Lidya Wynn MD on 08/29/2022 5:08 PM PST Approved by: Lidya Wynn MD on 08/29/2022 5:08 PM PST Station ID: [id number]
== END 2022-08-29 15:24 | disposition home or self-care (01) ==
LOC: DI.WOS 15:23
PROVIDERS: ATTEND Orthopaedic Surgery
DX: S72.142D Displaced intertrochanteric fracture of left femur, subsequent encounter for closed fracture with routine healing (principal); S52.532D Colles' fracture of left radius, subsequent encounter for closed fracture with routine healing